=== PATIENT | female | born 1985 | race Caucasian/White ===

== ENCOUNTER 2018-03-11 18:15 | Emergency (ER) | payer SELFPAY ==
[~2018-03-11] VITALS: Ht 162.6 cm; Wt 83.5 kg
[~2018-03-11 18:15] MED LIST: ALBU0.0912 IH
--- NOTE | 2018-03-11 18:23 | NUR ---
Patient ambulated to bed 8 with family. RN evaluating patient at bedside.
[2018-03-11 18:30] VITALS: BP 111/61
--- NOTE | 2018-03-11 18:35 | NUR ---
32Y/F CAME TO ER WITH AND SON, C/O LOWER BACK PAIN/ABD. CRAMPING X1WK, DENIES PAINFUL URINATION, DENIES FALL. 18 WKS. GEST. , AB 1. SKIN IS PINK/WARM/DRY; AAOX4 WITH EVEN AND STEADY GAIT; PATIENT STATES PAIN OF 5/10 AT THIS TIME; VSS; PATIENT POSITIONED FOR COMFORT; HOB ELEVATED; BEDRAILS UP X1; BED DOWN. ER MD MADE AWARE OF PT STATUS.
--- NOTE | 2018-03-11 18:50 | NUR ---
PROVIDED PATIENT DR. GOMEZ PHONE NUMBER FOR APPT.
--- NOTE | 2018-03-11 19:05 | NUR ---
REPORT RECV'D FROM BALAJI DIALLO
[2018-03-11 20:32] VITALS: BP 135/78
--- NOTE | 2018-03-11 20:32 | NUR ---
Patient discharged with v/s stable. Written and verbal after care instructions given and explained. Patient verbalized understanding. Ambulatory with steady gait. All questions addressed prior to discharge. Advised to follow up with PMD.
== END 2018-03-11 20:32 | disposition home or self-care (01) ==
LOC: MED 18:15
DX: O26.892 Other specified pregnancy related conditions, second trimester (principal); M54.5 Low back pain; J45.909 Unspecified asthma, uncomplicated; I10 Essential (primary) hypertension; Z79.899 Other long term (current) drug therapy; Z3A.20 20 weeks gestation of pregnancy
CPT/HCPCS: 81002; 81025; 99283

== ENCOUNTER 2018-06-05 13:13 | Inpatient (IN) | payer MEDICAID ==
[~2018-06-05] VITALS: Ht 154.9 cm; Wt 91.6 kg
[2018-06-05] MEDS ORDERED: hydrALAZINE 20 MG/ML VIAL IM SCH ×2 (13:25→15:00)
[2018-06-05] MEDS ORDERED: hydrALAZINE 20 MG/ML VIAL ONE ×2 (13:30→15:04)
[2018-06-05] MEDS ORDERED: ALBUTEROL HFA MDI 90 MCG/ACTUATION 8 GM INH PRN (13:45)
[2018-06-05] MEDS: ALBUTEROL 0.083% 2.5 MG/3 ML NEBU INH PRN (14:16)
--- NOTE | 2018-06-05 14:16 | NUR ---
PATIENT REPORTED HIGH BLOOD PRESSURE AND NURSE WAS IN THE ROOM. TREATMENT WAS TOLERATED WELL AND PATIENT WAS INFORMED SHE COULD REQUEST PRN TX EVERY Q4 IF NEEDED.
[2018-06-05 14:44] VITALS: BP 166/114
[2018-06-05] MEDS ORDERED: BETAMETH ACET/BETAMETH NA PH 30 MG/5 ML VIAL IM ONE ×2 (16:10→16:22)
[2018-06-05] MEDS ORDERED: LABETALOL 200 MG TAB ONE (16:22)
[2018-06-05] MEDS: LABETALOL 200 MG TAB PO SCH (17:07)
[2018-06-05] MEDS: BETAMETH ACET/BETAMETH NA PH 30 MG/5 ML VIAL IM SCH (17:07)
[2018-06-05 17:44] LABS: APPEARANCE,URINE CLEAR (CLEAR); BILIRUBIN,URINE NEGATIVE (NEGATIVE); BLOOD, URINE NEGATIVE (NEGATIVE); COLOR,URINE YELLOW (YELLOW); LEUKOCYTE ESTERASE ,URINE NEGATIVE (NEGATIVE); NITRITE, URINE POSITIVE (NEGATIVE); UGLUCOSE NEGATIVE (NEGATIVE)
[2018-06-05 17:54] LABS: BARBITURATE, URINE NEG. ng/ml (NEG <=200); BENZODIAZEPINE, URINE NEG. ng/mL (NEG <=200); CANNABINOID, URINE NEG. ng/mL (NEG <=50); COCAINE, URINE NEG. ng/mL (NEG <=300); OPIATE, URINE NEG. ng/mL (NEG <=2000); PHENCYCLIDINE SCREEN,URINE NEG. ng/mL (NEG <=25); RBC,URINE NONE SEEN /HPF (0-5); WBC,URINE 0-5 (RARE) /HPF (0-5)
[2018-06-05] MEDS ORDERED: ACETAMINOPHEN 325 MG TAB ONE (20:51)
[2018-06-05] MEDS ORDERED: TERBUTALINE 1 MG/ML VIAL SUBQ ONE (21:50)
[2018-06-05] MEDS ORDERED: TERBUTALINE 1 MG/ML VIAL SUBQ SCH (21:50)
[2018-06-05] MEDS ORDERED: NIFEdipine 10 MG CAPLF ONE (22:18)
[2018-06-05] MEDS: NIFEdipine 10 MG CAPLF PO SCH ×3 (22:53→23:35)
[2018-06-06] MEDS: NIFEdipine 10 MG CAPLF PO SCH ×6 (03:30→23:30)
[2018-06-06] MEDS ORDERED: NIFEdipine 10 MG CAPLF ONE ×6 (03:40→23:18)
[2018-06-06] MEDS ORDERED: LABETALOL 200 MG TAB ONE ×2 (04:17→16:28)
[2018-06-06] MEDS ORDERED: BETAMETH ACET/BETAMETH NA PH 30 MG/5 ML VIAL IM ONE (04:17)
[2018-06-06] MEDS: BETAMETH ACET/BETAMETH NA PH 30 MG/5 ML VIAL IM SCH (04:22)
[2018-06-06] MEDS: LABETALOL 200 MG TAB PO SCH ×2 (04:22→16:27)
[2018-06-06 08:30] VITALS: BP 112/76
--- NOTE | 2018-06-06 08:38 | NUR ---
PATIENT HAS BEEN SCREENED AND CATEGORIZED LOW NUTRITION RISK. PATIENT WILL BE SEEN WITHIN 7 DAYS OF ADMISSION. 06/12/[address]
[2018-06-06] MEDS: ACETAMINOPHEN 325 MG TAB PO PRN (09:43)
[2018-06-06] MEDS ORDERED: ACETAMINOPHEN 325 MG TAB ONE (09:44)
[2018-06-06] MEDS: LACTATED RINGERS 1,000 ML IV SCH (10:39)
[2018-06-06 11:28] LABS: BASOPHILS % (AUTO) 0.2 % (0.0-2.0); HEMATOCRIT 38.6 % (36-48); HEMOGLOBIN 12.8 g/dL (12.0-16.0); LYMPHOCYTES # (AUTO) 1.5 K/uL (2.5-16.5); LYMPHOCYTES % (AUTO) 16.5 % (20.5-51.1); MEAN CORPUSCULAR HEMOGLOBIN 28 pg (27-31); MEAN CORPUSCULAR HGB CONC 33 g/dL (33-37); MEAN CORPUSCULAR VOLUME 82.6 fL (80-94); MONOCYTES # (AUTO) 0.1 K/uL (0.8-1.0); MONOCYTES % (AUTO) 1.4 % (1.7-9.3); NEUTROPHILS # (AUTO) 7.5 K/uL (1.8-7.7); NEUTROPHILS % (AUTO) 81.9 % (42.2-75.2); PLATELET COUNT (AUTO) 145 K/uL (140-450); RED BLOOD CELL COUNT(AUTO) 4.67 MIL/uL (4.20-5.40); RED CELL DISTRIBUTION WIDTH 14.9 % (11.6-13.7); WHITE BLOOD COUNT (AUTO) 9.2 K/uL (4.8-10.8)
[2018-06-06 11:59] LABS: ALBUMIN 1.7 g/dL (3.4-5.0); ANION GAP 14.3 (8-16); CREATININE 1.3 mg/dL (0.6-1.3); POTASSIUM 4.3 mmol/L (3.5-5.1); TOTAL BILIRUBIN 0.2 mg/dL (0.0-1.0)
[2018-06-07] VITALS (69 sets, daily range): BP systolic 90–140; BP diastolic 49–100
[2018-06-07] MEDS ORDERED: ALBUTEROL 0.083% 2.5 MG/3 ML NEBU INH ONE (03:44)
[2018-06-07] MEDS: ALBUTEROL 0.083% 2.5 MG/3 ML NEBU INH PRN ×3 (03:47→05:23)
--- NOTE | 2018-06-07 05:55 | NUR ---
received call from Dr Khan to transfer patient to ICU; talked to Dr Yung (resident) regarding transfer patient to ICU. Dr Yung (resident) stated that Dr Yung (resident) will take care of it
--- NOTE | 2018-06-07 06:10 | NUR ---
CPR INITIATED AT THIS TIME GIAN JOHNSONP;GIAN SETHP; GIAN LINGP; CHAN DYSON AT BEDSIDE
--- NOTE | 2018-06-07 06:40 | NUR ---
PATIENT INTUBATED AT THIS TIME BY DR REUBEN DAVEY ETT #7.5 SECURED AT 26cm WITH AN ANCHOR FASTCONFIRMED BY BILATERAL AUSCULATATION BY CHEST RISE AND CO2 CXR TO FOLLOW NEW ORDERS FROM : ELVER Pena VT 450 PEEP 5 FIO2 50% Addendum: 06/07/18 at 0744 by Nj Grace RT ACTUAL INTUBATION TIME AT 0615 Addendum: 06/07/18 at 0755 by Nj Grace RT CO2 DETECTOR
[2018-06-07] MEDS ORDERED: OXYTOCIN 10 UNITS/ML VIAL ONE (07:07)
[2018-06-07] MEDS ORDERED: METHYLERGONOVINE 0.2 MG/ML AMP ONE (07:08)
--- NOTE | 2018-06-07 07:10 | NUR ---
PATIENT'S WEIGHT IS 89.8KG
--- NOTE | 2018-06-07 07:23 | NUR ---
PATIENT WAS BROUGHT TO ICU ACCOMPANIED BY 2 L&D NURSES AT 0610, PATIENT WAS IN RESPIRATORY DISTRESS, BECAME UNRESPONSIVE, CALLED DACIA MASON. PATIENT WAS RESUSCITATED BACK AT 0638. (REFER TO DACIA MASON RECORD). PATIENT STARTED ON DOPAMINE DRIP, AMIODARONE DRIP. CALLED L&D RN WILLIE ALSTON FOR REPORT, WILL COME TO ICU TO GIVE REPORT.
--- NOTE | 2018-06-07 07:30 | NUR ---
PREPARED PATIENT FOR TRANSFER TO L&D, PLACED ON MONITOR. ALL SAFETY PRECAUTIONS ENFORCED, WILL CONTINUE TO MONITOR.
--- NOTE | 2018-06-07 07:35 | NUR ---
PATIENT TRANSFERRED TO LABOR AND DELIVERY OR TO STAT C=SECTION PATIENT REMOVED FROM VENTILATOR PLACED ON AMBU BAG TO ETT WITH SUPPLEMENTAL OXYGEN AT 15 LPM VIA E-TANK BAG DEPRESSION EVERY SIX SECONDS BAGGING GIVEN TO ANESTHESIOLOGIST VENTILATOR SETTINGS OF AC MODE RATE 18 VT 450 L PEEP 5 cmH2O fio2 50% GIVEN TO ETHEL QUINTANILLA/YOEL
--- NOTE | 2018-06-07 07:40 | NUR ---
PLACED ON VENTILATOR AT THIS TIME
--- NOTE | 2018-06-07 08:24 | NUR ---
informed to Dr BRAYAN Khan that Dr Yung (resident) does not take the patient, and told Dr BRAYAN Khan that ICU compilation clerk is on the patient's consult list already. Dr BRAYAN Khan stated "OK" Addendum: 06/09/18 at 0723 by Karthik Villafana RN Dr Yung will consulting with Dr Gallagher regarding the patient
[2018-06-07] MEDS ORDERED: NACL 0.9% 1,000 ML IV SCH ×2 (09:07→10:50)
--- NOTE | 2018-06-07 09:08 | NUR ---
RECEIVED REPORT FROM BILLPOSTING SUPERVISOR FOR CONTINUITY OF CARE IN ICU. DR. LEES AND RESIDENT PHYSICIANS AT BEDSIDE, RT AT BEDSIDE. PATIENT IS SEDATED ON PROPOFOL DRIP, FLACC 0. ST ON MONITOR. PATIENT HAS A S/P INCISION TO LOWER ABDOMEN FROM CESARIAN. PATIENT HAD CENTRAL LINE AND ARTERIAL LINE INSERTED IN OR. ARTERIAL LINE IS PATENT, GOOD BLOOD RETURN NOTED. PATIENT HAS ETT TO VENT. BREATHING EVEN AND UNLABORED. HOB IS SEMI FOWLERS IN LOW POSITION. ALL SAFETY PRECAUTIONS IN PLACE AND ENFORCED. CALL LIGHT WITHIN REACH. WILL CONTINUE TO MONITOR.
[2018-06-07] MEDS ORDERED: ONDANSETRON 4 MG/2 ML VIAL IM/IVP PRN (09:10)
[2018-06-07] MEDS ORDERED: ACETAMINOPHEN 325 MG TAB PO PRN (09:10)
[2018-06-07] MEDS ORDERED: DOCUSATE SODIUM 100 MG GELCAP PO PRN (09:10)
--- NOTE | 2018-06-07 09:15 | NUR ---
ACTUAL ETT PLACEMENT AT 21cm
--- NOTE | 2018-06-07 09:32 | NUR ---
ABG REVIEWED BY DR TIM LEES VENTILATOR CHANGES BY MD RATE 22 VT 550 PEEP 6 FIO2 60% ABG AFTER 1 HOUR
[2018-06-07] MEDS ORDERED: HYDROCORTISONE NA SUCC 100 MG/2 ML VIAL IV SCH (09:39)
[2018-06-07 10:09] LABS: HEMOGLOBIN 11.9 g/dL (12.0-16.0)
--- NOTE | 2018-06-07 10:13 | NUR ---
INSERTED ALEJO CATHETER, 16 [place], PATIENT TOLERATED WELL, URINE OUTPUT NOTED.
[2018-06-07 10:16] LABS: HEMATOCRIT 38.2 % (36-48); MEAN CORPUSCULAR HEMOGLOBIN 27 pg (27-31); MEAN CORPUSCULAR HGB CONC 31 g/dL (33-37); MEAN CORPUSCULAR VOLUME 85.2 fL (80-94); PLATELET COUNT (AUTO) 200 K/uL (140-450); RED BLOOD CELL COUNT(AUTO) 4.49 MIL/uL (4.20-5.40); RED CELL DISTRIBUTION WIDTH 15.4 % (11.6-13.7); WHITE BLOOD COUNT (AUTO) 20.5 K/uL (4.8-10.8)
[2018-06-07 10:27] LABS: LYMPHOCYTES % (MANUAL) 14 % (20-46); MONOCYTES % (MANUAL) 4 % (5-12)
[2018-06-07 10:51] LABS: PROTHROMBIN TIME 9.4 secs (10.8-13.4)
[2018-06-07 10:52] LABS: ALBUMIN 1.5 g/dL (3.4-5.0); ANION GAP 14.2 (8-16); CARBON DIOXIDE 22.8 mmol/L (21-32); CREATININE 1.4 mg/dL (0.6-1.3); TOTAL BILIRUBIN 0.2 mg/dL (0.0-1.0)
--- NOTE | 2018-06-07 10:55 | NUR ---
ABG SAMPLE REPORT REVIEWED BY DR MAE WOOD NEW ORDERS: INCREASE RATE TO 24; INCREASE FIO2 TO 100% Addendum: 06/07/18 at 1103 by Nj Grace RT DUNCAN/YOEL NOTIFIED OF VENTILATOR CHANGE
--- NOTE | 2018-06-07 11:00 | NUR ---
SEDATED BREATH SOUNDS CLEAR BILATERAL WITH GOOD CHEST RISE AND AERATION THROUGHOUT PULMONARY ZHENG VENTILATOR CHANGE: RATE 24 FIO2 100% NOTED AT 1055
[2018-06-07 11:02] LABS: CHOL/HDL RATIO 4.2 (1-4.5); FREE T4 (FREE THYROXINE) 1.14 ng/dL (0.76-1.46); MAGNESIUM 2.5 mg/dL (1.8-2.4); PHOSPHORUS 7.6 mg/dL (2.5-4.9); THYROID STIMULATING HORMONE 6.35 uIU/mL (0.34-3.74)
--- NOTE | 2018-06-07 11:15 | NUR ---
BEEF FARMER AT BEDSIDE FOR ECHO. PATIENT IS TACHYCARDIC AT THIS TIME, DR. WOOD IS AWARE. WILL CONTINUE TO MONITOR
[2018-06-07] MEDS ORDERED: INSULIN LISPRO SLIDING SCALE 100 UNITS/ML VIAL SUBQ PRN ×2 (11:50→15:00)
--- NOTE | 2018-06-07 12:10 | NUR ---
PROVIDED ORAL CARE, PATIENT TOLERATED WELL. WILL CONTINUE TO MONITOR
[2018-06-07] MEDS: LACTATED RINGERS 1,000 ML IV SCH (12:22)
--- NOTE | 2018-06-07 13:07 | NUR ---
ASSISTANT PROFESSOR OF DRAMA AT BEDSIDE TO EXAMINE S/P INCISION. STATED THAT BECAUSE PROCEDURE WAS DONE TODAY, SHE WILL NOT EXAMINE WOUND. DR. NINA TORO.
--- NOTE | 2018-06-07 13:32 | NUR ---
PATIENT HAS BEEN RE-SCREENED AND RE-CATEGORIZED HIGH NUTRITIONAL RISK DUE TO INTUBATION. PT WILL BE SEEN WITHIN 1-2 DAYS FROM NOW. 06/07/18-06/08/[address]
--- NOTE | 2018-06-07 13:51 | NUR ---
WOUND CARE EVALUATION PENDING AT THIS TIME, < 24 HOURS
[2018-06-07] MEDS: MORPHINE SULFATE 50 MG in NACL 0.9% 45 ML IV PRN (13:59)
[2018-06-07] MEDS: OXYTOCIN 20 UNITS in LACTATED RINGERS 1,000 ML IV SCH ×2 (14:07→23:30)
[2018-06-07] MEDS: ALBUTEROL SULFATE/IPRATROPIU 3 ML SOL IH SCH ×2 (14:27→19:09)
--- NOTE | 2018-06-07 14:35 | NUR ---
INSERTED NG TUBE, 16 JAPANESE, PATIENT TOLERATED WELL. RASS IS -3, NO SIGNS OF DISTRESS NOTED.
--- NOTE | 2018-06-07 14:44 | NUR ---
US TECH AT BEDSIDE, NO SIGNS OF DISTRESS AT THIS TIME. WILL CONTINUE TO MONITOR
--- NOTE | 2018-06-07 14:49 | NUR ---
XRAY TECHS AT BEDSIDE FOR CHEST XRAY, WILL CONTINUE TO MONITOR PATIENT
[2018-06-07] MEDS ORDERED: DEXTROSE 50% 50 ML SYR IVP PRN (15:00)
--- NOTE | 2018-06-07 15:40 | NUR ---
2 OB RNS AT BEDSIDE TO ASSESS PATIENT, PER OB RN PATIENT BLEEDING IS WITHIN NORMAL LIMITS, STATES THEY WILL CONTINUE TO ASSESS Q4H. NO SIGNS OF DISTRESS AT THIS TIME, RASS IS -3. ALL SAFETY PRECAUTIONS ENFORCED, WILL CONTINUE TO MONITOR.
[2018-06-07] MEDS ORDERED: CALCIUM GLUCONATE 10% 1,000 MG in NACL 0.9% 50 ML IV SCH ×2 (16:00→22:30)
[2018-06-07] MEDS: BLOOD GLUCOSE MONITORING 1 DEV DEV FS SCH ×2 (16:07→21:00)
--- NOTE | 2018-06-07 16:11 | NUR ---
PROVIDED ORAL CARE, PATIENT TOLERATES WELL. NO SIGNS OF DISTRESS NOTED, RASS AT -3. WILL CONTINUE TO MONITOR
[2018-06-07] MEDS: PROPOFOL 1000 MG/100 ML PREMIX 100 ML IV PRN ×2 (16:28→20:38)
[2018-06-07] MEDS ORDERED: BLOOD GLUCOSE MONITORING 1 DEV DEV FS SCH (16:30)
[2018-06-07] MEDS: ALBUTEROL SULFATE/IPRATROPIU 3 ML SOL IH PRN (17:26)
--- NOTE | 2018-06-07 17:26 | NUR ---
SEDATED DEEP TRACHEAL SUCTION FOR SMALL THIN YELLOW SECRETIONS AIRWAY PATENT
[2018-06-07] MEDS ORDERED: FUROSEMIDE 20 MG/2 ML VIAL IVP SCH (17:45)
[2018-06-07 18:03] LABS: HEMOGLOBIN 12.4 g/dL (12.0-16.0); MEAN CORPUSCULAR HEMOGLOBIN 27 pg (27-31); MEAN CORPUSCULAR HGB CONC 32 g/dL (33-37); MEAN CORPUSCULAR VOLUME 83.6 fL (80-94); PLATELET COUNT (AUTO) 213 K/uL (140-450); RED BLOOD CELL COUNT(AUTO) 4.67 MIL/uL (4.20-5.40); RED CELL DISTRIBUTION WIDTH 15.7 % (11.6-13.7)
[2018-06-07 18:37] LABS: LYMPHOCYTES % (MANUAL) 11 % (20-46); MONOCYTES % (MANUAL) 5 % (5-12)
--- NOTE | 2018-06-07 18:52 | NUR ---
PATIENT'S AT BEDSIDE WITH JAVA J2EE TECHNICAL LEAD. UPDATED ON PATIENT'S CONDITION. WILL CONTINUE TO MONITOR
--- NOTE | 2018-06-07 18:58 | NUR ---
AT BEDSIDE, UPDATED ON PATIENT'S CONDITION. WILL FOLLOW UP ON ANY ORDERS.
--- NOTE | 2018-06-07 19:05 | NUR ---
DR. 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
[2018-06-07 19:11] LABS: ANION GAP 14.3 (8-16); CARBON DIOXIDE 23.2 mmol/L (21-32); CREATININE 1.8 mg/dL (0.6-1.3)
--- NOTE | 2018-06-07 19:15 | NUR ---
ENDORSED CONTINUITY OF CARE TO UNDERGRADUATE INTERNSHIP RN, PATIENT PRESENTS NO SIGNS OF DISTRESS AT THIS TIME. RT AT BEDSIDE.
--- NOTE | 2018-06-07 19:16 | NUR ---
RECEIVED REPORT FROM DAY SHIFT RN. PT SEDATED 2+ SLUGGISH PUPILS, FLACCID MUSCLE TONE. PITOCIN, MORPHINE DRIP AND PROPOFOL DRIP CURRENTLY RUNNING THROUGH RIJ CENTRAL LINE. SINUS TACHYCARDIA 100S, ARTERIAL INVASIVE BLOOD PRESSURE 103/96, ART LINE ZEROED AND FLUSHED, +1 PULSES UPPER AND LOWER EXTREMITIES, +2 GENERALIZED EDEMA NOTED. 7.5 ETT TO VENT 22 CM @ OUTER LIP. LUNG SOUNDS DIMINISHED SLIGHT EXPIRATORY WHEEZES NOTED. SCANT WHITE SPUTUM NOTED. ABD SOFT, BULKY DRESSING CDI, IN PLACE S/P . NGT TO R NARES +PLACEMENT. ALEJO CATH IN PLACE, DARK IBAN URINE; LOW URINE OUTPUT NOTED. R UPPER ARM / ANTECUBITAL SPACE SKIN DISCOLORATION NOTED. SCDS IN PLACE. ALL ALARMS VERIFIED. SAFETY PRECAUTIONS IN PLACE, BED IN LOWEST POSITION, LOCKED. WILL CONTINUE TO OBSERVE.
[2018-06-07 19:23] LABS: POTASSIUM 7.5 mmol/L (3.5-5.1)
--- NOTE | 2018-06-07 19:25 | NUR ---
DR GOODRICH, FORENSIC ARTIST STILL IN THE UNIT.CRITICAL LAB RESULT POTASSIUM 7.5 REPORTED TO .NEW ORDER RECEIVED, REPEAT BMP AND TROPONIN LEVEL
--- NOTE | 2018-06-07 19:30 | NUR ---
DRY WEIGHT: 89.8 KG
--- NOTE | 2018-06-07 19:57 | NUR ---
NOTIFIED DR. MOYA OF DISCOLORATION TO R UPPER ARM/ANTECUBITAL SPACE. PER PREVIOUS SHIFT, VASOPRESSORS WERE INFUSING INTO PERIPHERAL IV LOCATED ON THE R UPPER ARM/ANTECUBITAL AREA; IV HAS SINCE BEEN DISCONTINUED. Addendum: 06/07/18 at 2207 by Zurdo Alicea RN ADVISED OF EXTRVASATION PROTOCOL. MD NEO RUBIO. WILL FOLLOW PER HOSPITAL POLICY.
--- NOTE | 2018-06-07 20:00 | NUR ---
VAP ORAL CARE DONE PER PROTOCOL. PT TURNED AND REPOSITIONED. WILL CONTINUE TO OBSERVE.
[2018-06-07] MEDS ORDERED: PHENTOLAMINE 5 MG/2 ML VIAL SUBQ SCH (20:30)
[2018-06-07] MEDS: HYDROCORTISONE NA SUCC 100 MG/2 ML VIAL IV SCH (20:35)
--- NOTE | 2018-06-07 20:35 | NUR ---
REGITINE GIVEN PER POLICY AND PROCEDURE. R ARM ELEVATED ABOVE HEART, COLD COMPRESS APPLIED, DISPOSABLE PAD PLACED UNDERNEATH AFFECTED LIMB. DISTAL PULSES INTACT, <3 SEC CAP REFILL, SKIN SURROUNDING AFFECTED AREA, PINK, AND DRY. NO OTHER S/S OF ACUTE DISTRESS NOTED.
[2018-06-07 20:49] LABS: ANION GAP 12.4 (8-16); CARBON DIOXIDE 24.1 mmol/L (21-32)
[2018-06-07 20:55] LABS: POTASSIUM 7.5 mmol/L (3.5-5.1)
--- NOTE | 2018-06-07 21:35 | NUR ---
[address] PHONE CALL MADE TO DR MOYA RE; TROPONIN [phone]; SAID TO CALL EDUCATION SUPERVISOR PHONE CALL MADE TO DR GOODRICH; MADE AWARE OF THE ABOVE,DR MONREAL WAS MADE AWARE THAT THIS IS LINE DRAW AND THAT ANOTHER LAB DRAW WAS DONE PERIPHERALLY;NO NEW ORDER
[2018-06-07 21:51] LABS: ANION GAP 13.3 (8-16); CARBON DIOXIDE 20.9 mmol/L (21-32)
[2018-06-07 21:55] LABS: POTASSIUM 8.2 mmol/L (3.5-5.1)
[2018-06-07] MEDS ORDERED: DEXTROSE 50% 50 ML SYR IVP SCH (22:30)
[2018-06-07] MEDS ORDERED: SODIUM POLYSTYRENE 15 GM/60 ML UDBTL PR SCH (22:30)
[2018-06-07] MEDS ORDERED: INSULIN LISPRO 100 UNITS/ML VIAL SUBQ SCH (22:30)
[2018-06-07] MEDS ORDERED: OXYTOCIN 20 UNITS/LR PREMIX 1,000 ML IV ONE (22:30)
[2018-06-07] MEDS ORDERED: CALCIUM GLUCONATE 10% 1000 MG/10 ML VIAL ONE (23:55)
[2018-06-08] VITALS (108 sets, daily range): BP systolic 115–189; BP diastolic 59–127
--- NOTE | 2018-06-08 00:03 | NUR ---
VAP ORAL CARE DONE, PT TURNED AND REPOSITIONE
[2018-06-08] MEDS: ALBUTEROL SULFATE/IPRATROPIU 3 ML SOL IH SCH ×4 (00:35→19:19)
--- NOTE | 2018-06-08 00:50 | NUR ---
SHENA RT AT BEDSIDE; VENT SETTING FIO2 DECREASED TO 50%.02SAT 97% AT THIS TIME.WILL CONTINUE TO CLOSELY MONITOR PT.
--- NOTE | 2018-06-08 01:30 | NUR ---
BLADDER SCAN DONE ORDERED BY DR MOYA; NOTED 282ML URINE.
[2018-06-08] MEDS ORDERED: FUROSEMIDE 40 MG/4 ML VIAL IVP SCH (02:00)
[2018-06-08] MEDS: PROPOFOL 1000 MG/100 ML PREMIX 100 ML IV PRN ×5 (02:13→21:44)
--- NOTE | 2018-06-08 02:40 | NUR ---
PHONE CALL MADE TO DR MOYA REGARDING PTS BP; 165/105.MADE AWARE MORPHINE DRIP WAS ALREADY INCREASED TO 2MG/HR AND LASIX 40MG IVP GIVEN.NO NEW ORDER AT THIS TIME
--- NOTE | 2018-06-08 04:00 | NUR ---
VAP ORAL CARE DONE, PT TURNED AND REPOSITIONED.
[2018-06-08] MEDS: LABETALOL 200 MG TAB PO SCH (04:27)
[2018-06-08] MEDS: HYDROCORTISONE NA SUCC 100 MG/2 ML VIAL IV SCH ×3 (04:28→20:40)
--- NOTE | 2018-06-08 05:19 | NUR ---
INCREASED FIO2 TO 50% TO DUE POST AM CARE AND DESATURATION TO 91% VITAL SIGNS STABLE, BS- BILATERAL CLEAR
[2018-06-08 06:00] LABS: HEMATOCRIT 37.9 % (36-48); HEMOGLOBIN 11.9 g/dL (12.0-16.0); MEAN CORPUSCULAR HEMOGLOBIN 26 pg (27-31); MEAN CORPUSCULAR HGB CONC 31 g/dL (33-37); MEAN CORPUSCULAR VOLUME 84.1 fL (80-94); PLATELET COUNT (AUTO) 198 K/uL (140-450); RED BLOOD CELL COUNT(AUTO) 4.51 MIL/uL (4.20-5.40); RED CELL DISTRIBUTION WIDTH 15.5 % (11.6-13.7); WHITE BLOOD COUNT (AUTO) 18.1 K/uL (4.8-10.8)
--- NOTE | 2018-06-08 06:00 | NUR ---
DR WOOD @ BEDSIDE. NOTIFIED MD ABOUT INCREASED BLOOD PRESSURE. MD AWARE AND WILL FOLLOW UP WITH ORDERS. MD ALSO MADE AWARE OF LOW URINE OUTPUT, 200 ML/SHIFT.
[2018-06-08 06:29] LABS: ANION GAP 13.2 (8-16); CARBON DIOXIDE 23.5 mmol/L (21-32); CREATININE 2.5 mg/dL (0.6-1.3)
[2018-06-08 06:48] LABS: LYMPHOCYTES % (MANUAL) 27 % (20-46); MONOCYTES % (MANUAL) 9 % (5-12)
[2018-06-08 06:51] LABS: POTASSIUM 6.7 mmol/L (3.5-5.1)
--- NOTE | 2018-06-08 07:14 | NUR ---
RECEIVED BEDSIDE REPORT FROM TIRE BLADDER MAKER RN FOR CONTINUITY OF CARE. PATIENT IS SEDATED WITH PROPOFOL AT 35MCG/KG/HR, RASS -3. PATIENT WEIGHT IS 89.8. SKIN IS NOT INTACT, PATIENT HAS AN EXTRAVASATION TO RIGHT UPPER ARM AND S/P POST CESARIAN INCISION TO LOWER ABDOMEN. PATIENT HAS CENTRAL LINE TO RIGHT IJ AND ARTERIAL LINE TO LEFT RADIAL ARTERY. PATIENT HAS ETT TO VENT, SETTINGS ARE AC/VC RATE 24, FIO2 50%, VT 550, PEEP 5. BREATHING IS EVEN AND UNLABORED, O2 SAT IS 99%. SR ON DETAILER, HYPERTENSIVE, RESIDENT PHYSICIANS AWARE, FLACC 0. PATIENT HAS NGT TO RIGHT NARES, NO RESIDUAL. ALEJO CATHETER IN PLACE TO YELLOW URINE, PER TIRE BLADDER MAKER RN 200 ML OUTPUT DURING SHIFT. PATIENT TURNED AND REPOSITIONED, TOLERATED WELL. HOB IS 30 DEGREES IN A LOW POSITION. ALL SAFETY PRECAUTIONS ASSESSED AND ENFORCED. CALL LIGHT WITHIN REACH. WILL CONTINUE TO MONITOR
--- NOTE | 2018-06-08 07:21 | NUR ---
DAY SHIFT RN GIVEN REPORT FOR CONTINUITY OF CARE. NO ACUTE DISTRESS NOTED.
[2018-06-08] MEDS: BLOOD GLUCOSE MONITORING 1 DEV DEV FS SCH ×4 (07:28→21:52)
--- NOTE | 2018-06-08 07:38 | NUR ---
RCV'D PT ON MECHANICAL VENTILATION WITH SETTINGS AC 24,550,+6,50%. PT IS INTUBATED WITH 7.5 ETT AT 21 CM AT LIP. ETT ON RIGHT SIDE OF MOUTH AND SECURED. VENT IS CONNECTED TO RED OUTLET. ALARMS AUDIBLE. AMBU BAG AT BEDSIDE. CLEAR BREATH SOUNDS. HHN TX GIVEN WITH NO ADVERSE REACTION. ETT CUFF PRESSURE IS 30 XMH2O. NO SOB OR DISTRESS NOTED. WILL CONTINUE TO MONITOR.
--- NOTE | 2018-06-08 07:39 | NUR ---
DR. SCHMITZ AT BEDSIDE, UPDATED ON PATIENT'S CONDITION. WILL FOLLOW UP ON ANY ORDERS.
--- NOTE | 2018-06-08 07:51 | NUR ---
DR. ESPARZA AND RESIDENT PHYSICIANS AT BEDSIDE, UPDATED ON PATIENT'S CONDITION. WILL FOLLOW UP ON ANY ORDERS.
[2018-06-08 08:01] LABS: MAGNESIUM 2.6 mg/dL (1.8-2.4)
--- NOTE | 2018-06-08 08:03 | NUR ---
OB RN AT BEDSIDE TO ASSESS PATIENT, UPDATED ON PATIENT'S CONDITION. WILL CONTINUE TO MONITOR
[2018-06-08] MEDS: PANTOPRAZOLE 40 MG INJ VIAL IVP SCH (08:23)
[2018-06-08] MEDS: OXYTOCIN 20 UNITS in LACTATED RINGERS 1,000 ML IV SCH (08:31)
--- NOTE | 2018-06-08 08:39 | NUR ---
ADMINISTERED SCHEDULED MEDS ORDERED, PATIENT TOLERATED WELL. PROVIDED ORAL CARE, MINIMAL SECRETIONS FROM SUCTIONING. PATIENT TOLERATED WELL. RASS OF -3 NOTED. NO SIGNS OF DISTRESS AT THIS TIME. WILL CONTINUE TO MONITOR.
--- NOTE | 2018-06-08 09:07 | NUR ---
DR. LESE AND DR. WOOD AT BEDSIDE. UPDATED AT PATIENT'S CONDITION. WILL FOLLOW UP ON ANY ORDERS.
--- NOTE | 2018-06-08 09:18 | NUR ---
DR. OCHOA AND DR. WOOD AT BEDSIDE, UPDATED ON PATIENT'S CONDITION. WILL FOLLOW UP ON ANY ORDERS.
--- NOTE | 2018-06-08 09:25 | NUR ---
DECREASED PT'S FIO2 TO 40% NO SOB OR DISTRESS NOTED. VENT CHECK DONE. DR LEES AT BEDSIDE. NO NEW ORDERS. WILL CONTINUE TO MONITOR.
[2018-06-08 09:27] LABS: T4 (THYROXINE) 12.1 ug/dL (4.5-12.0)
--- NOTE | 2018-06-08 09:32 | NUR ---
SPEAKING TO PATIENTS VIA PRESSER COTTON GINNING PHONE#[phone], TO OBTAIN CONSENT FOR INSERTION OF JAYASHREE CATHETER.
--- NOTE | 2018-06-08 09:42 | NUR ---
DR. MONREAL CALLED REGARDING PATIENT'S HIGH BLOOD PRESSURE, ORDERS RECEIVED, WILL CARRY OUT.
[2018-06-08] MEDS ORDERED: LIDOCAINE 2% 100 MG/5 ML SYR IVP ONE (09:45)
--- NOTE | 2018-06-08 09:50 | NUR ---
DR. OCHOA, DR. WOOD, TECH AT BEDSIDE FOR PLACEMENT OF JAYASHREE CATHETER. NO SIGNS OF DISTRESS NOTED AT THIS TIME, PATIENT IS AT RASS -3. WILL CONTINUE TO MONITOR
--- NOTE | 2018-06-08 10:05 | NUR ---
TIME OUT FOR JAYASHREE CATHETER PLACEMENT IN LEFT IJ PERFORMED.
--- NOTE | 2018-06-08 10:10 | NUR ---
ARNULFO BARFIELD, DIALYSIS NURSE MADE AWARE THAT PATIENT HAS AN ORDER FOR DIALYSIS. AND JAYASHREE CATHETER PLACED, AWAITING FOR X RAY CONFIRMATION.
--- NOTE | 2018-06-08 10:34 | NUR ---
JAYASHREE CATHETER PROCEDURE COMPLETE, PATIENT TOLERATED WELL. ALL SAFETY PRECAUTIONS IN PLACE. NO SIGNS OF DISTRESS NOTED. WILL CONTINUE TO MONITOR
[2018-06-08] MEDS ORDERED: LIDOCAINE 2% 1000 MG/50 ML VIAL INJ ONE (10:40)
[2018-06-08] MEDS ORDERED: CARVEDILOL 12.5 MG TAB NG SCH ×2 (10:42→21:00)
[2018-06-08] MEDS ORDERED: CARVEDILOL 12.5 MG TAB PO SCH ×3 (10:43→21:00)
--- NOTE | 2018-06-08 11:11 | NUR ---
PATIENT'S SISTER AT BEDSIDE, UPDATED ON PATIENT'S CONDITION BY
--- NOTE | 2018-06-08 11:12 | NUR ---
REMOVED ARTERIAL LINE IN LEFT UPPER EXTREMITY PER DR. YOANA GILBERT, APPLIED PRESSURE TO SITE AND COVERED WITH GAUZE AND TAPE.
--- NOTE | 2018-06-08 11:49 | NUR ---
BP 178/119 MMHG AT THIS TIME, DR WOOD MADE AWARE. WILL FOLLOW UP WITH ORDERS.
--- NOTE | 2018-06-08 12:00 | NUR ---
OB RN AT BEDSIDE ASSESSING PATIENT.
--- NOTE | 2018-06-08 12:18 | NUR ---
PROVIDED ORAL CARE, PATIENT TOLERATED WELL. TURNED AND REPOSITION PATIENT, NO SIGNS OF ACUTE DISTRESS. WILL CONTINUE TO MONITOR
--- NOTE | 2018-06-08 13:14 | NUR ---
DIALYSIS NURSE ARNULFO MADE AWARE THAT JAYASHREE CATH IS OK TO USE FOR DIALYSIS.
--- NOTE | 2018-06-08 13:38 | NUR ---
SPORTS DIRECTOR AT BEDSIDE TO START HEMODIALYSIS ON PATIENT, NO SIGNS OF DISTRESS NOTED. DR. NINA TORO.
[2018-06-08] MEDS: MORPHINE SULFATE 50 MG in NACL 0.9% 45 ML IV PRN (14:11)
--- NOTE | 2018-06-08 14:21 | NUR ---
06/08/18 RD INITIAL ASSESSMENT COMPLETED PLEASE REFER TO NUTRITION ASSESSMENT UNDER CARE ACTIVITY FOR ESTIMATED NUTRITIONAL NEEDS. 1. WHEN PATIENT IS MEDICALLY STABLE CONSIDER ADVANCING TO TUBE FEED VIA NG-TUBE WITH VITAL AF 1.2 AT GOAL RATE 35 ML/HR. 2. RECOMMEND FREE WATER FLUSH [address] TO FOLLOW-UP 2-3 DAYS, HIGH RISK BERENICE TEE, RD
--- NOTE | 2018-06-08 14:32 | NUR ---
RECEIVED CALL FROM DR. OCHOA, STATES TO STOP INFUSION OF OXYTOCIN IN LACTATED RINGERS DUE TO INCREASE IN POTASSIUM, WILL CARRY OUT.
[2018-06-08] MEDS ORDERED: FUROSEMIDE 100 MG/10 ML VIAL IVP SCH (14:40)
[2018-06-08] MEDS ORDERED: NACL 0.9% 1,000 ML IV SCH (14:40)
--- NOTE | 2018-06-08 15:23 | NUR ---
Automotive Internet Sales Consultant Note: Late entry for 06/07/18: and I met with patient's Mario Palomino. explained to Mario patient is currently in ICU, intubated, and in stable condition, I relayed this information to Mario in Vietnamese. Mario is not fluent in Libyan. Per Mario, he has contacted patient's family and waiting for them to arrive to hospital. Both Liliana and I gave Mario our condolences and explained to him to please not hesitate to let us know if you could provide any support to him and patient's family. I provided him with my contact information. Field Marketing Associate will continue to follow up as needed.
--- NOTE | 2018-06-08 16:01 | NUR ---
OB RN AT BEDSIDE TO EXAMINE PATIENT, NO SIGNS OF DISTRESS NOTED AT THIS TIME, HEMODIALYSIS STILL IN PROCESS, WILL CONTINUE TO MONITOR
--- NOTE | 2018-06-08 16:09 | NUR ---
PROVIDED ORAL CARE, PATIENT TOLERATED WELL. WILL CONTINUE TO MONITOR
[2018-06-08] MEDS ORDERED: hydrALAZINE 20 MG/ML VIAL IVP SCH (16:30)
--- NOTE | 2018-06-08 16:56 | NUR ---
PATIENT'S AT BEDSIDE, UPDATED ON PATIENT'S CONDITION. PATIENT IS SEDATED, RASS-3. WILL CONTINUE TO MONITOR
--- NOTE | 2018-06-08 17:08 | NUR ---
HEMODIALYSIS COMPLETE, PATIENT TOLERATED WELL, NO SIGNS OF ACUTE DISTRESS. 1500 OUTPUT PER PARKING METER COLLECTOR.
--- NOTE | 2018-06-08 17:42 | NUR ---
VENT CHECK DONE. PT HAS NO SECRETIONS FOR SAMPLE. NO SOB OR DISTRESS NOTED. WILL CONTINUE TO MONITOR.
[2018-06-08 18:56] LABS: ANION GAP 14.1 (8-16); CARBON DIOXIDE 22.9 mmol/L (21-32); CREATININE 2.2 mg/dL (0.6-1.3)
--- NOTE | 2018-06-08 19:30 | NUR ---
DRY WEIGHT: 89.8 KG
--- NOTE | 2018-06-08 19:30 | NUR ---
RECEIVED REPORT FROM DAY SHIFT NO ACUTE DISTRESS NOTD
--- NOTE | 2018-06-08 19:34 | NUR ---
Received pt stable on vent support at documented settings, suctioned scant amounts of thin clear secretions, hhn tx given, tolerated well, no resp distress or SOB noted at this time, 7.5 ETT secured and patent, alarms set and audible, ambu bag at bedside, vent plugged into red outlet, pulse ox on, will cont to monitor.
--- NOTE | 2018-06-08 19:41 | NUR ---
NOTIFIED DR MOYA OF ELEVATED BP 179/101, MD CORTEZ MD TO SEE PATIENT. WILL CONTINUE TO OBSERVE
[2018-06-08] MEDS ORDERED: hydrALAZINE 20 MG/ML VIAL IVP ONE (19:45)
--- NOTE | 2018-06-08 19:45 | NUR ---
PT AROUSABLE TO NAME, ABLE TO SQUEEZE HANDS AND MOVE TOES, GENERALIZED WEAKNESS NOTED. DENIES PAIN WHEN ASKED, EYES ARE ABLE TO TRACK +3 PERRL. REORIENTED PT TO UNIT AND INFORMED PT ABOUT IMPORTANCE OF IV LINES, AND TUBES IN PLACE. ADVISED NOT TO PULL ANYTHING OUT. NSR 90S NOTED, +2 GENERALIZED EDEMA NOTED PALPABLE PERIPHERAL PULSES. ETT TO VENT 7.5 MM ETT 22 CM @ LIP. VENT SETTINGS: AC 40% FIO2 R 24 TV 550 PEEP 6. ABD SOFT NON DISTENDED. ACTIVE BOWEL SOUNDS, NGT TO R NARES + PLACEMENT VITAL 1.2 RUNNING. NO RESIDUALS NOTED. ALEJO CATH IN PLACE CLEAR YELLOW URINE NOTED. S/P C SECTION, TRANSVERSE INCISION TO SUPRAPUBIC/LOWER ABDOMINAL AREA DRESSING CDI. CENTRAL LINE TO RIJ NOTED, PROPOFOL DRIP @ 30 MCG/KG/MIN, MORPHINE DRIP @ 2 MG/HR, AND IVF INFUSING @ 40 ML/HR. CVP MONITORING IN PLACE. LIJ JAYASHREE CATH IN PLACE. ALL SAFETY ALARMS/PRECAUTIONS IN PLACE AND VERIFIED. NO ACUTE DISTRESS NOTED
--- NOTE | 2018-06-08 20:00 | NUR ---
VAP ORAL CARE DONE, PT TURNED AND REPOSITIONED
--- NOTE | 2018-06-08 20:30 | NUR ---
DR MONREAL @ BEDSIDE
[2018-06-08] MEDS: CARVEDILOL 12.5 MG TAB PO SCH (20:41)
[2018-06-08] MEDS: FUROSEMIDE 100 MG/10 ML VIAL IVP SCH (20:41)
--- NOTE | 2018-06-08 21:00 | NUR ---
DR PIRES @ BEDSIDE
[2018-06-09] VITALS (48 sets, daily range): BP systolic 118–188; BP diastolic 54–106
--- NOTE | 2018-06-09 | NUR ---
VAP ORAL CARE DONE, PT TURNED AND REPOSITINED
[2018-06-09] MEDS: ALBUTEROL SULFATE/IPRATROPIU 3 ML SOL IH SCH ×4 (01:17→18:53)
[2018-06-09] MEDS: PROPOFOL 1000 MG/100 ML PREMIX 100 ML IV PRN ×2 (02:17→04:44)
--- NOTE | 2018-06-09 03:45 | NUR ---
AM CARE DONE, PT TURNED AND REPOSITIONED, VAPP ORAL CARE DONE, PT TOLERATED WELL.
[2018-06-09] MEDS: HYDROCORTISONE NA SUCC 100 MG/2 ML VIAL IV SCH (04:45)
--- NOTE | 2018-06-09 06:00 | NUR ---
DR WOOD @ BEDSIDE, UPDATED. NO NEW ORDERS GIVEN.
--- NOTE | 2018-06-09 07:08 | NUR ---
RECEIVED BEDSIDE REPORT FROM PRECISION MACHINING INSTRUCTOR RN FOR CONTINUITY OF CARE. PATIENT IS SEDATED, OPENS EYES TO NAME, RASS -3 WITH PROPOFOL AT 40 MCG/KG/HR, PATIENT'S DRY WEIGHT IS 89.8KG. PATIENT SKIN IS WARM AND DRY, NOT INTACT, SHE HAS S/P INCISION TO LOWER ABDOMEN POST CESARIAN AND EXTRAVASATION TO UPPER RIGHT ARM. PATIENT HAS CENTRAL LINE TO RIGHT IJ, ASYMPTOMATIC AND PATENT, SHE HAS A JAYASHREE CATHETER TO LEFT IJ, ASYMPTOMATIC AND PATENT. PATIENT HAS ETT TO VENT, SETTINGS ARE AC/VC, RATE 24, FIO2 28, VT 550, PEEP 6. BREATHING EVEN AND UNLABORED, SPO2 100%. PATIENT IS SINUS RHYTHM ON BRANCH MAKER, BP IS 149/78, CVP 3, FLACC 0. PATIENT HAS NGT TO RIGHT NARES TO TUBE FEEDING AT 35ML/HR, NO RESIDUAL NOTED. ALEJO CATHETER IN PLACE TO CLEAR LIGHT YELLOW URINE. SOFT WRIST RESTRAINTS ASSESSED AND IN PLACE, HOB IS ELEVATED TO 30 DEGREES, ALL SAFETY PRECAUTIONS ENFORCED. NO SIGNS OF DISTRESS NOTED, CALL LIGHT WITHIN REACH. WILL CONTINUE TO MONITOR
[2018-06-09 07:22] LABS: BASOPHILS % (AUTO) 0.1 % (0.0-2.0); HEMATOCRIT 28.7 % (36-48); HEMOGLOBIN 9.7 g/dL (12.0-16.0); LYMPHOCYTES # (AUTO) 2.5 K/uL (2.5-16.5); LYMPHOCYTES % (AUTO) 19.9 % (20.5-51.1); MEAN CORPUSCULAR HEMOGLOBIN 28 pg (27-31); MEAN CORPUSCULAR HGB CONC 34 g/dL (33-37); MEAN CORPUSCULAR VOLUME 81.4 fL (80-94); MONOCYTES # (AUTO) 0.5 K/uL (0.8-1.0); MONOCYTES % (AUTO) 4.2 % (1.7-9.3); NEUTROPHILS # (AUTO) 9.7 K/uL (1.8-7.7); NEUTROPHILS % (AUTO) 75.8 % (42.2-75.2); PLATELET COUNT (AUTO) 191 K/uL (140-450); RED BLOOD CELL COUNT(AUTO) 3.52 MIL/uL (4.20-5.40); RED CELL DISTRIBUTION WIDTH 14.6 % (11.6-13.7); WHITE BLOOD COUNT (AUTO) 12.7 K/uL (4.8-10.8)
[2018-06-09 07:28] LABS: PHOSPHORUS 6.9 mg/dL (2.5-4.9)
[2018-06-09] MEDS: BLOOD GLUCOSE MONITORING 1 DEV DEV FS SCH ×4 (07:43→20:39)
--- NOTE | 2018-06-09 07:58 | NUR ---
DR. ESPARZA AND RESIDENT PHYSICIANS AT BEDSIDE, UPDATED ON PATIENT'S CONDITION. WILL FOLLOW UP ON ANY ORDERS.
[2018-06-09 08:11] LABS: ANION GAP 14.7 (8-16); CARBON DIOXIDE 23.1 mmol/L (21-32); CREATININE 2.5 mg/dL (0.6-1.3); POTASSIUM 3.8 mmol/L (3.5-5.1)
--- NOTE | 2018-06-09 08:20 | NUR ---
DR. LEES AND DR. WOOD AT BEDSIDE FOR EXTUBATION, PROPOFOL AND MORPHINE ON HOLD, TUBE FEEDING ON HOLD. NO SIGNS OF DISTRESS NOTED. WILL CONTINUE TO MONITOR
--- NOTE | 2018-06-09 08:20 | NUR ---
DR. LEES AT BEDSIDE, UPDATED ON PATIENT'S CONDITION. DR. LEES PLACED PATIENT ON CPAP TRIAL, STATES THAT PATIENT IS READY OF EXTUBATION.
--- NOTE | 2018-06-09 08:20 | NUR ---
DR TIM LEES PLACED ON CPAP/PS FOR WEANING TRIAL BY NEW ORDER: EXTUBATE PATIENT
--- NOTE | 2018-06-09 08:23 | NUR ---
DR LEES AT BEDSIDE REVIEWED ABG ORDER PENDING NEW ORDER: DISCONTINUE ABG ORDER
--- NOTE | 2018-06-09 08:30 | NUR ---
LOC AWAKE AND ALERT FOLLOWS FAMILY PSYCHOLOGIST COMMANDS PRE EXTUBATION: OROPHARYNGEAL SUCTIONING WITH NO SECRETION RETURN NO PULMONARY SUCTION REQUIRED BREATH SOUNDS CLEAR BILATERAL WITH GOOD CHEST RISE AND AERATION THROUGHOUT PULMONARY ZHENG UNSECURED ANCHOR FAST STRAP DEFLATED CUFF BALLOON FLAT REQUESTED PATIENT TO TAKE DEEP BREATHS ON INSPIRATION REMOVED ENDOTRACHEAL TUBE PLACED PATIENT ON SUPPLEMENTAL OXYGEN AT [address] MAE WOOD AT BEDSIDE REVIEWED POST EXTUBATION IF PATIENT PRESENTS WITH UPPER AIRWAY "HOARSNESS" FAMILY PSYCHOLOGIST TO PLACE ON A COOL AEROSOL TO MASK AND/OR GIVE EPINEPHRINE INHALATION THERAPY INCENTIVE THERAPY FOR LUNG EXPANSION
--- NOTE | 2018-06-09 08:35 | NUR ---
DR. LEES, DR. WOOD, AND RT AT BEDSIDE. EXTUBATED PATIENT, PATIENT TOLERATED WELL.
--- NOTE | 2018-06-09 08:36 | NUR ---
PATIENT AAOX3, DR. COOPER AT BEDSIDE TO SPEAK WITH PATIENT REGARDING PATIENT'S CONDITION. RESTRAINTS REMOVED PATIENT IS MORE ALERT.
[2018-06-09] MEDS: FUROSEMIDE 100 MG/10 ML VIAL IVP SCH (08:48)
[2018-06-09] MEDS: PANTOPRAZOLE 40 MG INJ VIAL IVP SCH (08:48)
[2018-06-09] MEDS: CARVEDILOL 12.5 MG TAB PO SCH ×2 (08:49→20:45)
--- NOTE | 2018-06-09 09:07 | NUR ---
RETURNING OFFICER, SOPHIA AT BEDSIDE TO ASSESS PATIENT, PLACE DRESSING ON EXTRAVASATION TO UPPER RIGHT ARM AND DRESSING TO LOWER ABDOMEN, PATIENT TOLERATED WELL.
[2018-06-09] MEDS ORDERED: LORazepam 2 MG/ML VIAL IM/IVP PRN (09:15)
--- NOTE | 2018-06-09 09:28 | NUR ---
CLARIFIED ORDER FOR HYDRALAZINE DUE TO PATIENT ON COREG AND LASIX LOWERING PATIENT'S BP, DR. WOOD STATES OKAY TO GIVE HYDRALAZINE. WILL CONTINUE TO MONITOR
[2018-06-09] MEDS: hydrALAZINE 10 MG TAB PO SCH ×3 (09:31→16:53)
--- NOTE | 2018-06-09 09:45 | NUR ---
ASSESS PATIENT'S SWALLOWING WITH DR. WOOD AT BEDSIDE, GAVE PATIENT SOME ICE CHIPS, PATIENT TOLERATED WELL. DR. WOOD STATED OKAY TO D/C NG TUBE. FLUSH NG TUBE WITH 50 ML OF WATER, REMOVED NG TUBE FROM RIGHT NARES, PATIENT TOLERATED WELL. NO SIGNS OF DISTRESS NOTED. WILL CONTINUE TO MONITOR
--- NOTE | 2018-06-09 10:05 | NUR ---
WOUND CARE EVALUATION NOTE: REASON FOR EVALUATION: SURGICAL WOUND AND RIGHT UPPER ARM WOUND SKIN ASSESSMENT DONE WITH THIS 32 Y/O FEMALE TRANSFER FROM OB TO ICU S/P CARDIAC ARREST AND ACUTE RENAL FAILURE. PAST MEDICAL HX METH. USER, ALL ABOVE INFORMATION OBTAINED FROM CHART REVIEW. PT.LABS ARE WBC 12.7, H/H 9.7/28.7, [id number] AND ALBUMIN 1.5. PT IS ALERT, SKIN IS WARM WITH GOOD HYDRATION, BLE NO HAIR GROWTH, NO EDEMA. PLAN OF CARE DISCUSS WITH PRIMARY RN, PT. AND NINA MCCORMACK. INTEGUMENTARY: -CENTRAL LINE RIGHT IJ DRESSING CDI -JAYASHREE CATH TO LEFT IJ DRESSING CDI -LOWER ABDOMEN S/P SURGICAL WOUNDS, WOUND SITE CLEAN AND DRY WITH MULTIPLE FLOWER IN PLACE, NO S/S OF WOUND DEHISCENCE -EXTRAVASATION TO RIGHT UPPER ARM, ERYTHEMA [id number] WITH ACTIVE OPEN WOUND PARTIAL THICKNESS SKIN LOSS 4X3X0.1CM, MEGHA-WOUND SLIGHTLY EDEMA AND WARM TO TOUCH RECOMMENDATION: -CLEANSE LOWER ABDOMEN S/P SURGICAL WOUNDS WITH NS. PAT DRY, APPLY DRY DRESSING QD AND PRN ID SOILING. -CLEANSE RIGHT UPPER ARM WOUND WITH NS. PAT DRY , APPLY HYDROGEL AND ADAPTIC DRESSING ON ACTIVE OPEN WOUND AREA AND APPLY ADAPTIC DRESSING TO ERYTHEMA AREA AND COVER WITH KERLIX ROLLS CHANGE PRN IF SOILING -INSTRUCT PT. TO HOLD ON ABDOMEN SURGICAL WOUND SITE WHEN COUGH OR CHANGE POSITION. ASSIST PT. IN TURNING AND REPOSITION IF NEEDED. ALL RECOMMENDATION DISCUSS WITH PRIMARY RN
[2018-06-09] MEDS: MORPHINE SULFATE 2 MG/ML SYR IVP PRN (10:32)
--- NOTE | 2018-06-09 10:36 | NUR ---
ADMINISTERED MORPHINE 1MG PRN FOR 8/10 PAIN, PATIENT TOLERATED WELL.
--- NOTE | 2018-06-09 11:08 | NUR ---
AWAKE AND ALERT PATIENT PRESENTING AND C/O DRY UPPER AIRWAY PLACED ON SUPPLEMENTAL OXYGEN AT 28%/6 LPM VIA COOL AEROSOL TO MASK
--- NOTE | 2018-06-09 11:34 | NUR ---
CALL BACK FROM DR MAE WOOD REVIEWED ABG SAMPLE REPORT STATES "OK SOUNDS GOOD" NO NEW ORDERS
--- NOTE | 2018-06-09 11:35 | NUR ---
PATIENT'S AT BEDSIDE, WILL CONTINUE TO MONITOR.
--- NOTE | 2018-06-09 11:55 | NUR ---
SENIOR ECOLOGIST ETHEL AN FLIGHT DECK OFFICER ALL WOUND CONDITIONS AND TREATMENT PLANS EXPLAINED TO PT. AND , ALL QUESTIONS ANSWERED. SPOKE TO RD FOR LOW ALBUMIN, RD WILL RE-ASSESS. Addendum: 06/09/18 at 1200 by Lucila Hendrickson RN (Grace) PT. AND VERBALIZES UNDERSTANDING CONVERSATION AND TREATMENT PLANS AT THIS TIME.
--- NOTE | 2018-06-09 12:01 | NUR ---
MUD ANALYSIS WELL LOGGING CAPTAIN note Order received for bedside swallow evaluation, chart reviewed. Pt was intubated 06/07/2018 and extubated 06/09/2018 at 08:30am. Per MUD ANALYSIS WELL LOGGING CAPTAIN protocol, MUD ANALYSIS WELL LOGGING CAPTAIN will defer bedside swallow evaluation completion until minimum of 24 hours s/p extubation has elapsed to decreased pt's risk for silent aspiration (which is greatest during first 24 hours s/p extubation). MUD ANALYSIS WELL LOGGING CAPTAIN to f/u after at least 24 hours s/p extubation have elapsed, as appropriate.
--- NOTE | 2018-06-09 13:38 | NUR ---
PATIENT AT BEDSIDE, NO SIGNS OF DISTRESS NOTED. WILL CONTINUE TO MONITOR
--- NOTE | 2018-06-09 13:41 | NUR ---
PATIENT SISTERS AT BEDSIDE, PATIENT IS UPSET OVER LOSS OF THE BABY. WILL CONTINUE TO MONITOR
--- NOTE | 2018-06-09 14:08 | NUR ---
ADMINISTERED ATIVAN PRN FOR AGITATION DUE TO PATIENT PRESENTING RESTLESSNESS. PATIENT TOLERATES WELL. WILL CONTINUE TO MONITOR.
[2018-06-09] MEDS ORDERED: SKINTEGRITY HYDROGEL TP PRN (14:30)
--- NOTE | 2018-06-09 14:53 | NUR ---
DR. WOOD AT BEDSIDE TO CHECK ON PATIENT, UPDATED ON PATIENT'S CONDITION, WILL FOLLOW UP ON ANY ORDERS.
--- NOTE | 2018-06-09 16:00 | NUR ---
VENTILATOR REMAINS AT BEDSIDE STAND BY
--- NOTE | 2018-06-09 16:18 | NUR ---
DR. SCHMITZ AT BEDSIDE TO CHECK ON PATIENT, UPDATED ON PATIENT'S CONDITION. NO NEW ORDERS RECEIVED.
--- NOTE | 2018-06-09 16:47 | NUR ---
DR. WOOD AT BEDSIDE, STATES NO NEED TO CONTINUE WITH CVP MONITORING. WILL FOLLOW UP ON ORDER.
--- NOTE | 2018-06-09 17:07 | NUR ---
Cigarette Seller Note: Per patient's Mario, he would like to speak with certified social workers in health care from hospital, he didn't stated reason, URBANO Deng will meet with Mario this afternoon. Addendum: 06/11/18 at 1033 by Letitia CASEY correction for above note: he didn't state reason, URBANO Chaa will meet with Mario this afternoon.
--- NOTE | 2018-06-09 17:50 | NUR ---
Kettle Worker Notes: I met with Patient and at bed side to discuss concerns, Per patient's Candelario, he wanted to speak with case management social worker from hospital, to request for resources or information regarding Mortuary services at low cost. Due to their resent loss of a child and been limited with money. I provided a mortuary list, and discuss with Patient's about inquiring for low cost services or payment plans. He agreed and stated that he will contact them to see if there was any resources available for them. He thanked me for the information.
--- NOTE | 2018-06-09 18:48 | NUR ---
VISIT BY SISTER VALENTÍN CALIXTO AND HER [phone]. AT BED SIDE.
--- NOTE | 2018-06-09 19:07 | NUR ---
DR. MONREAL AT BEDSIDE, UPDATED ON PATIENT'S CONDITION, WILL FOLLOW UP ON ANY ORDERS.
--- NOTE | 2018-06-09 19:08 | NUR ---
ENDORSED CONTINUITY OF CARE TO HOT DIE PICKER RN, NO SIGNS OF DISTRESS NOTED.
--- NOTE | 2018-06-09 19:25 | NUR ---
RECEIVED REPORT FROM MORNING RN, DUNCAN, FOR CONTINUITY OF CARE. VS STABLE AT THIS TIME. AFEBRILE. PT DROWSY BUT ABLE TO MAKE NEEDS KNOWN AND TO FOLLOW COMMAND. PERRL. DENIES PAIN AT THIS TIME. LUNG SOUNDS CLEAR. PT ON OXYGEN AT 6L/MIN VIA MASK. NO SOB NOTED. NO SIGNS OF RESPIRATORY DISTRESS. BREATHING EVEN AND UNLABORED. SYMMETRICAL CHEST EXPANSION. RT AT BEDSIDE. PT TO BE SWITCHED TO NASAL CANNULA POST BREATHING TREATMENT. S1+S2 HEARD. SR ON MONITOR. PULSES PALPABLE IN ALL EXTREMITIES. PT NOTED WITH EDEMA THAT IS NON-PITTING +2 IN BUE/BLE. ABDOMEN ROUND, SOFT AND NONDISTENDED. BS ACTIVE IN ALL QUADRANTS. PT HAS LOWER ABDOMEN INCISION, S/P . INCISION IS COVERED WITH DRESSING WHICH IS INTACT, DRY, AND CURRENTLY NO DRAINAGE NOTED. ALEJO CATHETER IN PLACE THAT IS DRAINING CLEAR AND YELLOW URINE. CURRENTLY HAS 50ML OUTPUT. PT HAS RIGHT IJ CENTRAL LINE AND LEFT IJ JAYASHREE CATHETER. PT HAS A LARGE DISCOLORATION ON RIGHT UPPER ARM. SITE COVERED WITH KERLIX. PT HAS EDEMA NON-PITTING ON BUE. HOB KEPT AT 30 DEGREES. BED AT LOW POSSIBLE POSITION. CALL LIGHT WITHIN REACH. WILL CONTINUE TO MONITOR PT.
--- NOTE | 2018-06-09 19:45 | NUR ---
PT SWITCHED FROM OXYGEN MASK TO NASAL CANNULA. OXYGEN CURRENTLY AT 2L/MIN AND OXYGEN SATURATION AT 95%
--- NOTE | 2018-06-09 20:50 | NUR ---
PT TURNED, REPOSITIONED, AND WAS ABLE TO TOLERATE. PT ABLE TO MAKE NEEDS KNOWN. PT WAS ABLE TO SWALLOW HER MEDICATIONS WITHOUT DIFFICULTY. KEPT HOB AT 30 DEGREES.
[2018-06-09] MEDS ORDERED: NACL 0.45% 1,000 ML IV SCH (21:35)
--- NOTE | 2018-06-09 22:15 | NUR ---
ALEJO CATHETER STILL DRAINING CLEAR AND YELLOW URINE. ORAL CARE PROVIDED TO PT. TURNED AND REPOSITIONED. CHECKED BUTTOCKS AND SACRAL AREA, NO REDNESS NOTED.
[2018-06-10] VITALS (9 sets, daily range): BP systolic 136–158; BP diastolic 83–105
--- NOTE | 2018-06-10 00:10 | NUR ---
VS STABLE. AFEBRILE. SINUS RHYTHM TO SINUS TACHYCARDIA ON MONITOR. PT DENIES PAIN AT THIS TIME. HOB AT 30 DEGREES. ALL SAFETY PRECAUTIONS ARE IN PLACE.
[2018-06-10] MEDS: ALBUTEROL SULFATE/IPRATROPIU 3 ML SOL IH SCH ×4 (00:59→18:59)
[2018-06-10] MEDS ORDERED: DEXT 5% / NACL 0.9% 500 ML IV SCH (01:00)
[2018-06-10] MEDS: MORPHINE SULFATE 2 MG/ML SYR IVP PRN ×4 (02:23→18:45)
--- NOTE | 2018-06-10 02:47 | NUR ---
OXYGEN SATURATION WITHIN NORMAL LIMIT AT THIS TIME. NO SIGNS OF SHORTNESS OF BREATH NOTED. BREATHING EVEN AND UNLABORED. VS STABLE. CLEAR AND YELLOW URINE DRAINING FROM ALEJO CATHETER IN PLACE.
--- NOTE | 2018-06-10 04:05 | NUR ---
MORNING CARE PROVIDED TO PT. ALEJO CARE PROVIDED. PT ABLE TO ASSIST WITH TURNING AND REPOSITIONING. PT HAS GOOD URINE OUTPUT AT THIS TIME. PT TOLERATED BEING TURNED AND REPOSITIONED WELL. DRESSING DRY, INTACT AND NO DRAINAGE NOTED.
[2018-06-10 05:37] LABS: BASOPHILS % (AUTO) 0.1 % (0.0-2.0); EOSINOPHILS % (AUTO) 0.2 % (0.0-4.0); HEMATOCRIT 30.2 % (36-48); HEMOGLOBIN 9.8 g/dL (12.0-16.0); LYMPHOCYTES % (AUTO) 19.4 % (20.5-51.1); MEAN CORPUSCULAR HEMOGLOBIN 27 pg (27-31); MEAN CORPUSCULAR HGB CONC 32 g/dL (33-37); MEAN CORPUSCULAR VOLUME 82.4 fL (80-94); MONOCYTES # (AUTO) 0.7 K/uL (0.8-1.0); MONOCYTES % (AUTO) 4.2 % (1.7-9.3); NEUTROPHILS # (AUTO) 11.8 K/uL (1.8-7.7); NEUTROPHILS % (AUTO) 76.1 % (42.2-75.2); PLATELET COUNT (AUTO) 204 K/uL (140-450); RED BLOOD CELL COUNT(AUTO) 3.67 MIL/uL (4.20-5.40); RED CELL DISTRIBUTION WIDTH 14.7 % (11.6-13.7); WHITE BLOOD COUNT (AUTO) 15.5 K/uL (4.8-10.8)
[2018-06-10 06:11] LABS: CARBON DIOXIDE 30.2 mmol/L (21-32); CREATININE 1.7 mg/dL (0.6-1.3); POTASSIUM 3.2 mmol/L (3.5-5.1)
[2018-06-10 06:17] LABS: PHOSPHORUS 3.9 mg/dL (2.5-4.9)
[2018-06-10] MEDS: BLOOD GLUCOSE MONITORING 1 DEV DEV FS SCH ×4 (06:43→21:21)
--- NOTE | 2018-06-10 07:12 | NUR ---
REPORT GIVEN TO MORNING RN, DIANN, FOR CONTINUITY OF CARE. VS STABLE AT THIS TIME.
--- NOTE | 2018-06-10 07:20 | NUR ---
RECEIVED REPORT FROM MENTAL HEALTH ORDERLY RN. PT RESTING IN BED. SR ON MONITOR. FLUCTUATING BP HIGH TO NORMAL. AWAKE BUT CONFUSED. KNOW NAME AND STATES SHE IS IN HOSPITAL. SKIN DRY AND WARM TO TOUCH. LUNGS CLEAR ON AUSCULTATION. RIJ TRIPLE LUMEN CATHETER NOTED. HAVE GOOD BLOOD RETURN. D5%NS RUNNING AT 50 ML/HR. LEFT IJ JAYASHREE CATH INTACT. EXTRAVASATION NOTED ON MADY, COVERED WITH DRESSING. ABDOMEN SOFT, LARGE AND TENDER. S/P C/S SURGICAL DRESSING NOTED ON LOWER ABDOMEN. DRESSING DRY AND INTACT. NO ACTIVE BLEEDING NOTED AT THE SITE. ACTIVE BOWEL SOUND. PITTING EDEMA NOTED ON BOTH UPPER AND LOWER EXTREMITIES. KEPT HOB ELEVATED. BED IN LOW POSITION LOCKED. WILL CONTINUE TO MONITOR.
--- NOTE | 2018-06-10 07:35 | NUR ---
SEEN BY DR. ESPARZA AND RESIDENT GROUP. MADE AWARE ABOUT LOW POTASSIUM 3.2.
[2018-06-10] MEDS: PANTOPRAZOLE 40 MG INJ VIAL IVP SCH (08:18)
[2018-06-10] MEDS: hydrALAZINE 25 MG TAB PO SCH ×3 (08:19→16:54)
[2018-06-10] MEDS: CARVEDILOL 12.5 MG TAB PO SCH ×2 (08:20→21:21)
[2018-06-10] MEDS ORDERED: POTASSIUM CHLORIDE 10 MEQ TABER PO SCH (09:00)
[2018-06-10] MEDS ORDERED: amLODIPine 5 MG TAB PO SCH (09:00)
--- NOTE | 2018-06-10 10:12 | NUR ---
MARKET RESEARCH ANALYST NOTE [id number] Bedside swallow evaluation completed following clearance by YOEL Aguirre. Please refer to MARKET RESEARCH ANALYST document for full report. Recommend: -Mech soft texture + thin liquids for all PO intake. Whole, oral meds ok. -1:1 feeder assistance for safety -Upright at 90 during and 20 min after intake -Small bites/sips, slow rate, alternate bites/sips, straw ok. -MARKET RESEARCH ANALYST to follow 2x/wk x1wk for diet toleration and advancement as appropriate. Education provided to pt and RN re: results and recommendations. G8996: CJ G8997: CI Swallow NOMS 4
[2018-06-10] MEDS ORDERED: SPIRONOLACTONE 25 MG TAB PO SCH (12:39)
[2018-06-10] MEDS: PIPER/TAZO 2.25GM/D5W PREMIX 50 ML IV SCH ×2 (13:04→21:20)
--- NOTE | 2018-06-10 14:24 | NUR ---
SLEEPING IN BED AT THIS TIME. NO ACUTE RESPIRATORY DISTRESS NOTED. VS WNL. WILL CONTINUE TO MONITOR.
[2018-06-10] MEDS: NACL 0.45% 1,000 ML IV SCH (16:23)
[2018-06-10] MEDS: SPIRONOLACTONE 25 MG TAB PO SCH (16:55)
--- NOTE | 2018-06-10 17:03 | NUR ---
RESTING IN BED. AT BEDSIDE. VS WNL.
--- NOTE | 2018-06-10 17:51 | NUR ---
FREDRICK AND RECEIVED CALL FROM DR. MCCARTY. UPDATED RECENT LABS. AJIR LONG. WILL FOLLOW UP ORDER. Addendum: 06/10/18 at 1752 by Carla Ruffin RN WRONG PT CHARTING.
--- NOTE | 2018-06-10 18:20 | NUR ---
RECEIVED PT FROM ICU, ALERT, AWAKE AND ORIENTED X2, CONFUSED. NO SOB NOTED, ON 02 AT 2LPM VIA NASAL CANNULA. NO C/O PAIN AT THIS TIME. WITH TRIPLE LUMEN CENTRAL ON RT IJ, PATENT , SITE CLEAN, DRY AND INTACT. WITH LT IJ JAYASHREE CATH, SITE CLEAN, DRY AND INTACT. BUE SWELLING NOTED, ELEVATED WITH PILLOWS. CHEST, DIMINISHED AIR ENTRY TO THE BASES. ABDOMEN LARGE BUT SOFT, LOWER ABDOMINAL INCISION S/P DRESSING DRY AND INTACT. WITH ALEJO CATHETER DRAINING MODERATE AMOUNTS OF CLEAR YELLOW URINE. INSTRUCTED PT TO CALL FOR ASSISTANCE, CALL LIGHT WITHIN REACH, PT VERBALIZED PARTIAL UNDERSTANDING.
--- NOTE | 2018-06-10 18:20 | NUR ---
PT TRANSFERRED TO TELE UNIT 107B VIA BED ON STABLE CONDITION. REPORT GIVEN TO TELE NURSE INGRED.
--- NOTE | 2018-06-10 19:22 | NUR ---
ENDORSED PATIENT TO PILE HEADER NURSE. PATIENT IS RESTING IN BED FAMILY AT BEDSIDE. IN STABLE CONDITION.
--- NOTE | 2018-06-10 19:30 | NUR ---
RECEIVED FROM AM RN IN BED AWAKE AND WITH FAMILY MEMBERS VISITING. NONE VERBAL AT THIS TIME. PT. JUST LOOKS AT ME. DX. OF CARDIAC ARREST. PT. IS AN ICU TRANSFER JUST THIS AFTERNOON. WITH ABDOMINAL DRESSING INTACT AND NO BLEEDING FROM S/P 06/07/18 CS. PT. WITH LIJ JAYASHREE CATHETER USED FOR HD AND RIJ CL FOR IV'S. ALEJO CATHETER IN PLACE AND DRAINING WITH YELLOW URINE. CALL LIGHT WITH IN REACH AND RE-ORIENTED FAMILY MEMBERS AND PT ABOUT IT. BED ALARM ON. ON WITH 02 SAT OF WITH 99 %.
--- NOTE | 2018-06-10 22:00 | NUR ---
PT. ABLE TO SWALLOW P.O. MEDICATIONS ADMINISTERED WELL. ABLE TO SWALLOW WATER WITH OUT ANY S/S OF ASPIRATION. TOLERATED WELL.
--- NOTE | 2018-06-10 22:45 | NUR ---
PT. HAD LIQUIDY BM 4 X ALREADY SINCE START OF SHIFT. CLEANED BY TIMBER RIDER AND NURSE. PT. ABLE TO TURN SELF WITH ASSIST. ON IVF ABT. ABLE TO USE CALL LIGHT FOR HELP. DENIES PAIN AT THIS TIME. TELEMETRY MONITORING.
--- NOTE | 2018-06-10 23:00 | NUR ---
PT. ABLE TO VERBALIZE SIMPLE NEEDS WELL IN [place]. NEEDS WILL BE MET . TELEMETRY MONITORING.
--- NOTE | 2018-06-10 23:42 | NUR ---
RESIDENT MD MORAN MADE AWARE OF PT. HAVING LIQUIDY STOOL. NO ORDERS GIVEN. "I WILL LET THE MORNING DOCTOR KNOW ABOUT IT". PT. SLEEPING AT THIS TIME. CALL LIGHT WITH IN REACH.
[2018-06-11] VITALS (7 sets, daily range): BP systolic 117–149; BP diastolic 81–105
[2018-06-11] MEDS: ALBUTEROL SULFATE/IPRATROPIU 3 ML SOL IH SCH ×4 (00:29→19:25)
--- NOTE | 2018-06-11 02:00 | NUR ---
SLEEPING AT THIS TIME. WAKES UP EASILY WHEN TOUCHED . TELEMETRY MONITORING. CALL LIGHT WITH IN REACH.
--- NOTE | 2018-06-11 04:43 | NUR ---
PT. SLEEPING. WAKES UP EASILY WHEN TOUCHED OR CALLED BY NAME. NO COMPLAINTS DONE. TELEMETRY MONITORING.
[2018-06-11] MEDS: PIPER/TAZO 2.25GM/D5W PREMIX 50 ML IV SCH ×3 (05:06→20:28)
[2018-06-11] MEDS: NACL 0.45% 1,000 ML IV SCH ×2 (05:06→08:49)
[2018-06-11] MEDS: BLOOD GLUCOSE MONITORING 1 DEV DEV FS SCH ×4 (05:10→20:28)
--- NOTE | 2018-06-11 06:10 | NUR ---
AWAKE AT THIS TIME. PROVIDED WITH APPLE JUICE REQUESTED. ABLE TO VERBALIZE IN ROMANSH . A/O X 4. ROM X 4.
[2018-06-11 07:06] LABS: BASOPHILS % (AUTO) 0.1 % (0.0-2.0); EOSINOPHILS # (AUTO) 0.1 K/uL (0-0.4); EOSINOPHILS % (AUTO) 0.7 % (0.0-4.0); HEMATOCRIT 34.6 % (36-48); HEMOGLOBIN 11.1 g/dL (12.0-16.0); LYMPHOCYTES # (AUTO) 2.7 K/uL (2.5-16.5); LYMPHOCYTES % (AUTO) 18.5 % (20.5-51.1); MEAN CORPUSCULAR HEMOGLOBIN 27 pg (27-31); MEAN CORPUSCULAR HGB CONC 32 g/dL (33-37); MEAN CORPUSCULAR VOLUME 83.1 fL (80-94); MONOCYTES # (AUTO) 0.4 K/uL (0.8-1.0); NEUTROPHILS # (AUTO) 11.5 K/uL (1.8-7.7); NEUTROPHILS % (AUTO) 77.7 % (42.2-75.2); PLATELET COUNT (AUTO) 240 K/uL (140-450); RED BLOOD CELL COUNT(AUTO) 4.17 MIL/uL (4.20-5.40); RED CELL DISTRIBUTION WIDTH 15.2 % (11.6-13.7); WHITE BLOOD COUNT (AUTO) 14.8 K/uL (4.8-10.8)
[2018-06-11 07:24] LABS: ANION GAP 9.6 (8-16); CARBON DIOXIDE 28.8 mmol/L (21-32); CREATININE 1.2 mg/dL (0.6-1.3); POTASSIUM 3.4 mmol/L (3.5-5.1)
--- NOTE | 2018-06-11 07:27 | NUR ---
ENDORSED TO THE NEXT RN FOR CONTINUITY OF CARE. ABLE TO VERBALIZE NEEDS IN [place] WELL. NEEDS MET. TELEMETRY MONITORING.
--- NOTE | 2018-06-11 07:28 | NUR ---
RECEIVED BEDSIDE REPORT. PATIENT IS AWAKE AND MORE ALERT THAN YESTERDAY. PATIENT STATES SHE REMEMBERS ME FROM YESTERDAY. SHE IS IN STABLE CONDITION. WILL CONTINUE TO MONITOR CALL LIGHT WITHIN REACH.
[2018-06-11 07:29] LABS: MAGNESIUM 1.7 mg/dL (1.8-2.4); PHOSPHORUS 2.7 mg/dL (2.5-4.9)
--- NOTE | 2018-06-11 08:15 | NUR ---
AWAKE AND ALERT RESPONSIVE NO EVIDENCE OF SOB NOTED PATIENT WITH BREAKFAST TRAY AT THIS TIME DATA INTEGRATION DEVELOPER TO ATTEMPT HHN THERAPY AT A LATER TIME
[2018-06-11] MEDS ORDERED: MAG SULF 2000 MG/WATER PREMIX 50 ML IV ONE (08:20)
[2018-06-11] MEDS: MAGNESIUM SULFATE 1GM in DEXTROSE 5% 100 ML PREMIX IV SCH ×2 (08:48→11:11)
[2018-06-11] MEDS: SPIRONOLACTONE 25 MG TAB PO SCH ×2 (08:50→17:37)
[2018-06-11] MEDS: METOPROLOL 50 MG TAB PO SCH (08:50)
[2018-06-11] MEDS: LACTOBACILLUS RHAMNOSUS GG 1 EACH CAP PO SCH (08:51)
[2018-06-11] MEDS: amLODIPine 5 MG TAB PO SCH (08:51)
[2018-06-11] MEDS: PANTOPRAZOLE 40 MG INJ VIAL IVP SCH (08:53)
[2018-06-11] MEDS: hydrALAZINE 25 MG TAB PO SCH ×3 (09:00→17:37)
[2018-06-11] MEDS ORDERED: amLODIPine 5 MG TAB PO SCH ×2 (09:00)
[2018-06-11] MEDS: HYDROcodone/APAP 7.5/325 MG 1 TAB PO PRN (09:43)
--- NOTE | 2018-06-11 09:45 | NUR ---
PATIENT ASKED TO SPEAK WITH HER . WERE ABLE TO GET A HOLD OF HIM HE WILL BE COMING IN LATER ON TODAY.
--- NOTE | 2018-06-11 11:34 | NUR ---
06/11/18 RD FOLLOW UP COMPLETED PLEASE REFER TO NUTRITION PROGRESS NOTE UNDER CARE ACTIVITY FOR ESTIMATED NUTRITION NEEDS. RD RECOMMENDATIONS: 1. RECOMMEND CONTINUE CURRENT DIET 2G NA MECHANICAL SOFT; SUFFICIENT TO MEET PT DAILY ESTIMATED NEEDS. 2. WHEN PT FEELS BETTER AND MORE ENERGETIC/READY, EDUCATE PATIENT ON DIET. 3. RD TO FOLLOW-UP 2-3 DAYS, HIGH RISK FREDERICK BUTTS MBA, RD
[2018-06-11] MEDS ORDERED: POTASSIUM CHLORIDE 10 MEQ TABER PO SCH (12:00)
[2018-06-11] MEDS ORDERED: MAGNESIUM OXIDE 400 MG TAB PO SCH (12:00)
[2018-06-11] MEDS: MORPHINE SULFATE 2 MG/ML SYR IVP PRN ×2 (12:09→17:33)
--- NOTE | 2018-06-11 13:00 | NUR ---
PATIENT IS AWAKE ATE ABOUT 80% OF HER LUNCH. PATIENT ASKED ME TO CALL HER . SHE STATES HE WILL COME IN AGAIN LATER WITH HER SON. NO DISTRESS NOTED. IN STABLE CONDITION. CALL LIGHT IS WITHIN REACH.
--- NOTE | 2018-06-11 16:00 | NUR ---
VITAL SIGNS ARE WITHIN NORMAL LIMITS. REPOSITION PATIENT TOLERATED WELL. NO SOB. CALL LIGHT IS WITHIN REACH.
--- NOTE | 2018-06-11 18:00 | NUR ---
PT HAD TOTAL OF 3X SMALL LIQUID BOWEL MOVEMENTS THROUGHOUT THE SHIFT, YELLOW-BROWN STOOLS NOTED. PT IS INCONTINENT AT TIMES, UNABLE TO SAVE STOOL SPECIMEN FOR C-DIFF COLLECTION. PT HAS BEEN ON IV ABX FOR MORE THAN 24 HRS.
--- NOTE | 2018-06-11 19:23 | NUR ---
ENDORSED TO CHIEF COUNSEL NURSE. PATIENT IS IN GOOD MOOD TALKING TO VISITORS. HAS NO SOB. IV SITE IS CLEAN AND PATENT. BED ON LOWEST POSITION, CALL LIGHT WITHIN REACH.
--- NOTE | 2018-06-11 19:24 | NUR ---
RECEIVED FROM AM RN IN BED SITTING UP. VISITORS AROUND HER. TALKING WITH HER VISITORS. GOOD AFFECT. NO SOB. DENIES ANY DOLOR AT THIS TIME. CARE PLANS FOR THE NIGHT DISCUSSED WITH HER. TELEMETRY MONITORING. CALL LIGHT WITH IN REACH AT ALL TIMES. ABLE TO VERBALIZE NEEDS WELL. NO COMPLAINTS DONE AT THIS TIME. ENCOURAGED TO CALL FOR ANY HELP SHE MAY NEED OR IF SHE HAS ANY DOLOR. DRESSING TO CS SITE INTACT AND NO BLEEDING NOTED.
--- NOTE | 2018-06-11 21:12 | NUR ---
BLOOD SUGAR CHECK 106. NO RISS COVERAGE. VERBALIZES WELL AND SHOWED ME SHE CAN MOVE RIGHT HAND NOW. A/O X 4. DENIES PAIN AT THIS TIME.
[2018-06-11] MEDS: ALBUTEROL SULFATE/IPRATROPIU 3 ML SOL IH PRN (23:12)
[2018-06-12] MEDS: ALBUTEROL SULFATE/IPRATROPIU 3 ML SOL IH SCH ×4 (01:00→19:44)
[2018-06-12] MEDS: NACL 0.45% 1,000 ML IV SCH (01:42)
--- NOTE | 2018-06-12 03:20 | NUR ---
BEEN SLEEPING WELL. WAKES UP EASILY WHEN TOUCHED. TELEMETRY MONITORING. VERBALIZES NEEDS WELL. USES CALL LIGHT.
[2018-06-12 04:33] VITALS: BP 152/104
[2018-06-12] MEDS: PIPER/TAZO 2.25GM/D5W PREMIX 50 ML IV SCH ×3 (05:33→20:06)
[2018-06-12] MEDS: BLOOD GLUCOSE MONITORING 1 DEV DEV FS SCH ×4 (05:33→21:20)
--- NOTE | 2018-06-12 06:18 | NUR ---
AM PERSONAL HYGIENE CARE RENDERED BY FELT CEMENTER. ABLE TO VERBALIZE NEEDS WELL. NO PAIN COMPLAINTS. PT. EDUCATED RE : METHAMPHETAMINE ADVERSE REACTIONS TO BODY. PT. EAGER TO LEARN MORE ABOUT IT. STATED THAT SHE IS USING IT A LOT SINCE 6 MONTHS AGO. PT. OPEN TO LEARNING. NEEDS ANTICIPATED AND MET.
--- NOTE | 2018-06-12 07:22 | NUR ---
PATIENT SLEPT THROUGH TREATMENT. VERBALLY DENIED FEELING SOB. O2 98% ON RA, PULSE OF 96, RATE OF 16. BREATH SOUNDS WERE CLEAR. TREATMENT TOLERATED WELL.
[2018-06-12 07:31] LABS: BASOPHILS % (AUTO) 0.1 % (0.0-2.0); EOSINOPHILS # (AUTO) 0.1 K/uL (0-0.4); EOSINOPHILS % (AUTO) 0.8 % (0.0-4.0); HEMATOCRIT 32.5 % (36-48); HEMOGLOBIN 10.5 g/dL (12.0-16.0); LYMPHOCYTES # (AUTO) 2.7 K/uL (2.5-16.5); LYMPHOCYTES % (AUTO) 17.3 % (20.5-51.1); MEAN CORPUSCULAR HEMOGLOBIN 26 pg (27-31); MEAN CORPUSCULAR HGB CONC 32 g/dL (33-37); MEAN CORPUSCULAR VOLUME 81.8 fL (80-94); MONOCYTES # (AUTO) 0.7 K/uL (0.8-1.0); MONOCYTES % (AUTO) 4.5 % (1.7-9.3); NEUTROPHILS # (AUTO) 11.8 K/uL (1.8-7.7); NEUTROPHILS % (AUTO) 77.3 % (42.2-75.2); PLATELET COUNT (AUTO) 259 K/uL (140-450); RED BLOOD CELL COUNT(AUTO) 3.97 MIL/uL (4.20-5.40); RED CELL DISTRIBUTION WIDTH 14.9 % (11.6-13.7); WHITE BLOOD COUNT (AUTO) 15.3 K/uL (4.8-10.8)
[2018-06-12 08:00] VITALS: BP 130/89
--- NOTE | 2018-06-12 08:30 | NUR ---
PATIENT SEEN BY PT
[2018-06-12 08:45] LABS: ANION GAP 10.1 (8-16); CARBON DIOXIDE 25.6 mmol/L (21-32); CREATININE 0.9 mg/dL (0.6-1.3); MAGNESIUM 1.6 mg/dL (1.8-2.4); PHOSPHORUS 2.2 mg/dL (2.5-4.9); POTASSIUM 3.7 mmol/L (3.5-5.1)
[2018-06-12] MEDS: hydrALAZINE 25 MG TAB PO SCH ×3 (09:00→17:32)
[2018-06-12] MEDS: METOPROLOL 50 MG TAB PO SCH (09:39)
[2018-06-12] MEDS: SPIRONOLACTONE 25 MG TAB PO SCH ×2 (09:39→17:31)
[2018-06-12] MEDS: amLODIPine 5 MG TAB PO SCH (09:39)
[2018-06-12] MEDS: LACTOBACILLUS RHAMNOSUS GG 1 EACH CAP PO SCH (09:39)
[2018-06-12] MEDS: HYDROcodone/APAP 7.5/325 MG 1 TAB PO PRN (09:40)
[2018-06-12] MEDS: PANTOPRAZOLE 40 MG INJ VIAL IVP SCH (09:40)
--- NOTE | 2018-06-12 11:19 | NUR ---
RIGHT ARM WOUND DRESSING CHANGED. PATIENT TOLERATED WEL
[2018-06-12 12:00] VITALS: BP 136/98
--- NOTE | 2018-06-12 12:39 | NUR ---
BUILDINGS AND GROUNDS DIRECTOR note (dysphagia therapy and discharge summary report) 12:00-12:30. Pt was provided with dysphagia therapy following clearance by RN (Josh). Pt sitting up in chair beside her bed with RN present for IV care. Pt c/o her right arm feeling numb and swollen. RN explained that it is due to pt's IV line had gotten infiltrated in that arm. Pt assisted with opening her lunch tray containers and then pt self-fed herself lunch without difficulty with chewing/swallowing. Pt's spouse intermittently at bedside. One of pt's children (3 year old son) present at bedside as well. Pt was provided with supportive listening, encouragement and education regarding purpose of BUILDINGS AND GROUNDS DIRECTOR's visit with good result. Pt wanted BUILDINGS AND GROUNDS DIRECTOR to look at the photos of her baby that she lost during this hospitalization. BUILDINGS AND GROUNDS DIRECTOR offered pt condolences and sympathy. Pt prefers to remain on mechanical soft textures at this time per pt report when asked by BUILDINGS AND GROUNDS DIRECTOR. Discharge Summary Report Pt was provided with bedside swallow evaluation on 06/10/2018 with recommendations for mechanical soft textures and thin liquids. Pt was provided with dysphagia therapy on 06/12/2018 with same recommendations. Recommend: 1) continue mechanical soft textures with thin liquids until pt ready to advance to regular textures again 2) continue general aspiration precautions 3) discharge pt from BUILDINGS AND GROUNDS DIRECTOR intervention at this time. Physician may reorder if further concerns arise, as appropriate. G-codes: [id number] CAYLA NOMS level 6 BUILDINGS AND GROUNDS DIRECTOR d/w RN Omi) prior to and following dysphagia therapy session.
--- NOTE | 2018-06-12 13:06 | NUR ---
ALEJO CATHETER DISCONTINUED. 850ML OF CLEAR YELLOW URINE OUTPUT NOTED
--- NOTE | 2018-06-12 14:56 | NUR ---
PATIENT BEING EVALUATED BY DR WILLIAMSON
--- NOTE | 2018-06-12 15:05 | NUR ---
Rice Cleaning Machine Tender Note: Director of Case Management and Rice Cleaning Machine Tender Dept Lori and I met with patient and patient's Mario at bedside to discuss fetus' mortuary and/or arrangements. Patient and Mario speak Haitian, not fluent in Italian. I asked patient and Mario if they had made arrangements using the resources provided to them by URBANO Deng and myself. They stated they had not and reported they did not have funds for burial or cremation. I emphasized the importance of them contacting mortuary/ companies and explaining to the staff their financial situation and asking staff which options were able to them. I also explained to them our hospital does not have a morgue, therefore, it is crucial to make burial or cremation arrangements as soon as possible in order for fetus to receive proper handling care. I explained to them they had the option of releasing fetus to hospital and allowing hospital to follow fetus disposition policy. They stated they did not want hospital to be responsible for fetus disposition. Mario stated he was going to contact [facility] today. I offered to contact [facility] on his behalf ([facility] has offered to assist low income individuals and families with payment plans and/or fundraise funds in the past). He agreed. I called and spoke with Nati from [employer], she stated she was going to contact Mario today (Nati speaks Haitian).
[2018-06-12 16:00] VITALS: BP 142/95
--- NOTE | 2018-06-12 16:40 | NUR ---
CENTRAL LINE DRESSING CHANGED. PATIENT AWAKE IN BED. PATIENT'S PRESENT AT BEDSIDE
--- NOTE | 2018-06-12 19:00 | NUR ---
PATIENT IN THE ROOM WITH THE BABY. PRESENT IN THE ROOM
--- NOTE | 2018-06-12 19:30 | NUR ---
PATIENT REPORT GIVEN AT BEDSIDE. PATIENT ENDORSED IN STABLE CONDITION
[2018-06-12] MEDS ORDERED: MAGNESIUM OXIDE 400 MG TAB PO ONE (20:05)
[2018-06-12] MEDS ORDERED: SODIUM PHOS / POTASSIUM PHOS 1 PKT PDR PO ONE (20:05)
--- NOTE | 2018-06-12 20:05 | NUR ---
SEEN PT AWAKE, ALERT AND ORIENTED, SPEAKS FRENCH ONLY. SPOUSE AND SON AT BEDSIDE. INITIAL ASSESSMENT DONE. PT RT ARM ELEVATED OVER PILLOW AND PT SAYING IT NEEDS TO BE CHANGED. INFORMED PT THAT IT WILL BE CHANGE TONIGHT. VITAL SIGNS CHECKED. PT COMPLAINING OF PAIN ON THE RT ARM. WILL MEDICATE FOR PAIN ORDERED. SAFETY REINFORCED. CALL LIGHT W/IN REACH.
[2018-06-12 20:08] VITALS: BP 148/77
--- NOTE | 2018-06-12 20:40 | NUR ---
PT GIVEN MEDICATIONS ORDERED W/ TEACHINGS. RT ARM DRESSING CHANGED.
[2018-06-12] MEDS: MORPHINE SULFATE 2 MG/ML SYR IVP PRN (20:42)
--- NOTE | 2018-06-12 21:20 | NUR ---
BLOOD SUGAR CHECKED:111. NO COVERAGE NEEDED. PT DENIES ANY OTHER NEEDS.
--- NOTE | 2018-06-12 22:15 | NUR ---
CALLED [employer] AND SPOKE TO AYAAN TO ASK WHEN THEIR STAFF COMING TO TOOL DESIGN ENGINEER THE DEMISE. SHE SAID "WE HAVEN'T RECEIVED ANY DOCUMENTS YET." AYAAN GAVE A NUMBER TO FAX THE [phone] AND ADDRESS TO [place]. WILL FAX FACE SHEET.
--- NOTE | 2018-06-12 22:30 | NUR ---
SEEN PT SITTING ON THE CHAIR. ENCOURAGED PT TO USE THE INCENTIVE SPIROMETER 10X IN AN HR WHILE AWAKE AND TO MOVE AND AMBULATE MORE. PT VERBALIZED UNDERSTANDING. SAFETY ENSURED.
[2018-06-13] MEDS: ALBUTEROL SULFATE/IPRATROPIU 3 ML SOL IH SCH ×4 (01:27→19:40)
--- NOTE | 2018-06-13 01:30 | NUR ---
SEEN PT HAVING HER BREATHING TREATMENT. PT COMPLAINING OF PAIN WELL. PT MEDICATED W/ MORPHINE ORDERED. TEACHINGS PROVIDED. PT WANTS HER LOWER ABDOMINAL DRESSING CHANGE. FLOWER INTACT W/ MINIMAL DRAINAGE. DRESSING CHANGED. PT KEPT COMFORTABLE. WILL CONTINUE TO MONITOR.
[2018-06-13] MEDS: MORPHINE SULFATE 2 MG/ML SYR IVP PRN ×3 (01:31→20:56)
[2018-06-13] MEDS: NACL 0.45% 1,000 ML IV SCH (01:41)
[2018-06-13 02:25] VITALS: BP 145/85
[2018-06-13] MEDS: HYDROcodone/APAP 7.5/325 MG 1 TAB PO PRN (02:27)
--- NOTE | 2018-06-13 04:50 | NUR ---
SEEN PT ASLEEP BUT EASILY AROUSABLE. VITAL SIGNS CHECKED. PT DENIES ANY PAIN AT THIS TIME. SAFETY REINFORCED.
[2018-06-13 04:55] VITALS: BP 136/86
[2018-06-13] MEDS: PIPER/TAZO 2.25GM/D5W PREMIX 50 ML IV SCH ×3 (05:11→20:55)
--- NOTE | 2018-06-13 05:30 | NUR ---
BLOOD SUGAR CHECKED:87. NO COVERAGE NEEDED. PT DENIES ANY OTHER NEEDS.
[2018-06-13] MEDS: BLOOD GLUCOSE MONITORING 1 DEV DEV FS SCH ×4 (06:43→21:27)
[2018-06-13 07:01] LABS: BASOPHILS % (AUTO) 0.3 % (0.0-2.0); EOSINOPHILS # (AUTO) 0.2 K/uL (0-0.4); EOSINOPHILS % (AUTO) 1.4 % (0.0-4.0); HEMATOCRIT 28.2 % (36-48); HEMOGLOBIN 9.3 g/dL (12.0-16.0); LYMPHOCYTES # (AUTO) 2.4 K/uL (2.5-16.5); LYMPHOCYTES % (AUTO) 17.8 % (20.5-51.1); MEAN CORPUSCULAR HEMOGLOBIN 27 pg (27-31); MEAN CORPUSCULAR HGB CONC 33 g/dL (33-37); MEAN CORPUSCULAR VOLUME 81.8 fL (80-94); MONOCYTES # (AUTO) 0.7 K/uL (0.8-1.0); MONOCYTES % (AUTO) 5.1 % (1.7-9.3); NEUTROPHILS # (AUTO) 10.3 K/uL (1.8-7.7); NEUTROPHILS % (AUTO) 75.4 % (42.2-75.2); PLATELET COUNT (AUTO) 249 K/uL (140-450); RED BLOOD CELL COUNT(AUTO) 3.45 MIL/uL (4.20-5.40); RED CELL DISTRIBUTION WIDTH 15.1 % (11.6-13.7); WHITE BLOOD COUNT (AUTO) 13.6 K/uL (4.8-10.8)
[2018-06-13 07:18] LABS: ANION GAP 8.9 (8-16); CARBON DIOXIDE 26.6 mmol/L (21-32); CREATININE 0.7 mg/dL (0.6-1.3); POTASSIUM 3.5 mmol/L (3.5-5.1)
--- NOTE | 2018-06-13 07:21 | NUR ---
WILL ENDORSE CARE TO DAYSHIFT NURSE.
--- NOTE | 2018-06-13 07:22 | NUR ---
RECEIVED REPORT FROM THE HALL WORKER NURSE AT BEDSIDE FOR CONTINUITY OF CARE. PT IS ASLEEP. FAMILY AT BEDSIDE, ALSO SLEEPING. WILL BE BACK TO ASSESS PT.
[2018-06-13 07:27] LABS: MAGNESIUM 1.3 mg/dL (1.8-2.4); PHOSPHORUS 2.8 mg/dL (2.5-4.9)
--- NOTE | 2018-06-13 07:40 | NUR ---
Panel Coverer Note: Late entry for 06/12/18: I met with patient at bedside. Patient speaks Lao, not fluent in Thai. I provided her with education on local counseling/mental health services and provided her with a list of local counseling mental health services, list includes agencies that offer services in Lao.
--- NOTE | 2018-06-13 07:50 | NUR ---
V/S WITHIN NORMAL RANGE. PT IS AOX4, SPEAKS VERY LITTLE GEORGIAN. PT HAS AN R IJ INFUSING 1/2 NS AT 30ML. AND L IJ/KEENA BLANC. SHE HAS A DRESSING ON THE R UPPER ARM. PER CHEMIST HELPER NURSE, IT IS FROM THE DOPAMINE INFILTRATION, DURING HER CODE. PT ALSO HAS DRESSING ON THE LOWER ABD FROM C-SEC. IT IS DRY AND INTACT. WILL TAKE PICTURE OF IT LATER BEFORE D/C. PLAN FOR TODAY: D/C HOME. WILL CONTINUE TO MONITOR PT.
[2018-06-13] MEDS: PANTOPRAZOLE 40 MG INJ VIAL IVP SCH (09:11)
[2018-06-13] MEDS: LACTOBACILLUS RHAMNOSUS GG 1 EACH CAP PO SCH (09:18)
[2018-06-13] MEDS: hydrALAZINE 25 MG TAB PO SCH ×3 (09:18→17:33)
[2018-06-13] MEDS: amLODIPine 5 MG TAB PO SCH (09:20)
[2018-06-13] MEDS: METOPROLOL 50 MG TAB PO SCH (09:20)
[2018-06-13] MEDS: SPIRONOLACTONE 25 MG TAB PO SCH (09:24)
--- NOTE | 2018-06-13 09:35 | NUR ---
STUDENT RN AND INSTRUCTOR, ADMINISTERED MORNING MEDS. PT TOLERATED WELL. I GAVE THE IVP MED. NO SIGNS OF DISTRESS. NO COMPLAINS. WILL CONTINUE TO MONITOR PT.
[2018-06-13] MEDS ORDERED: POTASSIUM CHLORIDE 20% 40 MEQ/15 ML UDC GT SCH (09:50)
--- NOTE | 2018-06-13 10:00 | NUR ---
PER PT, NOT READY TO GO HOME. SPOKE TO DR. WOOD. DR WOOD WILL SPEAK TO THE PT. WILL LET ME KNOW THE PLAN.
[2018-06-13] MEDS ORDERED: HYDROcodone/APAP 7.5/325 MG 1 TAB PO PRN (10:10)
--- NOTE | 2018-06-13 10:15 | NUR ---
REMOVED L JAYASHREE CATH. VERY LITTLE BLEEDING. ADMINISTERED PRESSURE BANDAGE. ASKED PT TO PUT PRESSURE ON FOR AT LEAST 10 MIN.
--- NOTE | 2018-06-13 10:36 | NUR ---
[employer] Note: I received a call from Urbano at [facility] , she stated they picked up fetus last night. Urbano told me patients Mario was supposed to go to their office and sign documents this morning at 9am. However, Mario did not go to their office. Urbano stated she has been calling Mario, however, his cell phone is currently out of service. Per Urbano, they decided to accept this case as a javan case and are charging patient and/or Mario $50 in total. I told her I will relay information to patient and/or Mario once I met with them. I went to patients room and met with patient and Mario at bedside. I explained to them it is important for them to go to the office of [facility] and sign documents. They verbalized understanding and Mario stated he was going to contact Urbano from [facility] this morning. I called and spoke with Alma from [facility] , told her we no longer need their services and thanked her for her assistance.
--- NOTE | 2018-06-13 12:30 | NUR ---
PHYSICAL THERAPY CO-SIGN The Physical Therapy Progress Notes documented by Bioinformatics Scientist have been reviewed. I concur with the documentation of this ATHLETIC COORDINATOR. Plan: continue PT as per plan of care if she remains in this hospital. Reviewed/Co-Signed by: Samantha Moran DPT Documentation Done by: Jon Ramsey, ATHLETIC COORDINATOR Addendum: 06/13/18 at 1238 by Samantha Moran PT Amended: Links added.
--- NOTE | 2018-06-13 13:59 | NUR ---
RIGHT UPPER ARM EXTRAVASATION SITE SKIN IN BLACK COLOR, ERYTHEMA AND +1 EDEMA. PLAN DISCUSSED WITH DR. WOOD, WILL HAVE US AND SURGEON TO CONSULT PER DR. WOOD. PRIMARY RN AND PT. NOTIFY.
[2018-06-13] MEDS ORDERED: MAG SULF 2000 MG/WATER PREMIX 50 ML IV SCH (14:07)
--- NOTE | 2018-06-13 14:13 | NUR ---
Concrete Technician Note: Patients Mario came to Case Management and Concrete Technician Dept and asked for assistance with directions to [facility] . I printed and provided Mario with directions from [facility] to [facility].
--- NOTE | 2018-06-13 14:18 | NUR ---
ADMINISTERED MORPHINE FOR PAIN. ADMINISTERED MAG RIDER. PT TOLERATING WELL. WILL CONTINUE TO MONITOR PT.
--- NOTE | 2018-06-13 14:28 | NUR ---
PATIENT SLEEPING WHEN ENTERED ROOM. WOKE PATIENT AND ADVISED I HAD HER BREATHING TREATMENT, PATIENT RESPONDED OK. TREATMENT LATE FROM SCHEDULED TIME DUE TO DOCTOR/NURSE CONFERENCE WITH PATIENT ON CARE AND WAS GIVEN A BATH RIGHT AFTER. PATIENT APPEARS COMFORTABLE WITH NO RESPIRATORY DISTRESS OR SOB. B/S: CLEAR BILATERALLY.
--- NOTE | 2018-06-13 14:33 | NUR ---
PT SLEEPING SOUNDLY. NO SIGNS OF DISTRESS. WILL CONTINUE TO MONITOR PT.
[2018-06-13 16:00] VITALS: BP 140/97
--- NOTE | 2018-06-13 19:20 | NUR ---
ENDORSED PT TO THE MEMORIAL DESIGNER NURSE AT BEDSIDE FOR CONTINUITY OF CARE. PT IS IN STABLE CONDITION.
--- NOTE | 2018-06-13 19:21 | NUR ---
RECEIVED REPORT FROM [facility] NURSE YOO AT BEDSIDE FOR CONTINUITY OF CARE.ESTONIAN SPEAKING. PT IV NOTED RIJ 3 LUMEN 1/2 NS 30ML/HR. NO SOB NO S/S OF DISTRESS. BED LOWERED CALL LIGHT WITHIN REACH WILL CONTINUE TO MONITOR.
--- NOTE | 2018-06-13 19:45 | NUR ---
MD MOYA AT BEDSIDE BECAUSE PT HAS SWELLING ON LEFT LOWER LEG. STATED SHE WILL ORDER US SCAN. WILL CONTINUE TO MONITOR.
[2018-06-13] MEDS: SERTRALINE 50 MG TAB PO SCH (20:56)
--- NOTE | 2018-06-13 21:56 | NUR ---
ADMIN PAIN MED 1 HR AGO. PT DENIES PAIN AT THIS TIME. PAIN MED EFFECTIVE WILL CONTINUE TO MONITOR.
[2018-06-13 23:42] VITALS: BP 140/86
--- NOTE | 2018-06-14 | NUR ---
PT RESTING IN BED ASSESS VITALS ALL WITHIN NORMAL LIMITS WILL CONTINUE TO MONITOR.
[2018-06-14] MEDS: ALBUTEROL SULFATE/IPRATROPIU 3 ML SOL IH SCH ×4 (01:13→18:40)
--- NOTE | 2018-06-14 02:10 | NUR ---
NO SOB NO S/S OF DISTRESS ON RA. WILL CONTINUE TO MONITOR.
[2018-06-14] MEDS: PIPER/TAZO 2.25GM/D5W PREMIX 50 ML IV SCH ×3 (05:43→20:31)
[2018-06-14] MEDS: BLOOD GLUCOSE MONITORING 1 DEV DEV FS SCH ×4 (06:23→20:32)
[2018-06-14 06:56] LABS: MONOCYTES # (AUTO) 0.7 K/uL (0.8-1.0); WHITE BLOOD COUNT (AUTO) 13.1 K/uL (4.8-10.8)
[2018-06-14 07:17] LABS: BASOPHILS % (AUTO) 0.3 % (0.0-2.0); EOSINOPHILS # (AUTO) 0.2 K/uL (0-0.4); EOSINOPHILS % (AUTO) 1.4 % (0.0-4.0); HEMATOCRIT 28.4 % (36-48); HEMOGLOBIN 9.4 g/dL (12.0-16.0); LYMPHOCYTES # (AUTO) 2.3 K/uL (2.5-16.5); LYMPHOCYTES % (AUTO) 17.8 % (20.5-51.1); MEAN CORPUSCULAR HEMOGLOBIN 27 pg (27-31); MEAN CORPUSCULAR HGB CONC 33 g/dL (33-37); MEAN CORPUSCULAR VOLUME 81.7 fL (80-94); MONOCYTES % (AUTO) 5.7 % (1.7-9.3); NEUTROPHILS # (AUTO) 9.8 K/uL (1.8-7.7); NEUTROPHILS % (AUTO) 74.8 % (42.2-75.2); PLATELET COUNT (AUTO) 252 K/uL (140-450); RED BLOOD CELL COUNT(AUTO) 3.47 MIL/uL (4.20-5.40)
--- NOTE | 2018-06-14 07:28 | NUR ---
ENDORSED REPORT TO DAYSHIFT NURSE AT BEDSIDE FOR CONTINUITY OF CARE.
--- NOTE | 2018-06-14 07:29 | NUR ---
RECEIVED PT FROM THE DECONTAMINATOR NURSE AT BEDSIDE FOR CONTINUITY OF CARE. PT IS AWAKE AND ORIENTED. RE-INTRODUCED MYSELF AND UPDATED THE BOARD. MD'S ROUNDING. PT STILL REFUSES TO HAVE THE I & D WITH DR ALFRED. PT HAD VENOUS DOPPLER ON THE LLE. NO BLOOD CLOTS. PT STILL HAS DRESSING FOR THE C SEC INCISION. R UA EXTRAVASATION, LUIS FELIPE. LBM WAS YESTERDAY X2. RIJ TRIPLE LUMEN 1/2 NS AT 30ML. V/S WITHIN NORMAL RANGE. PT DENIES PAIN OR SOB AT THIS TIME. PT IS NPO SINCE MIDNIGHT. WILL TALK TO MD ABOUT RESTARTING DIET.
[2018-06-14 07:30] LABS: ANION GAP 8.8 (8-16); CARBON DIOXIDE 27.9 mmol/L (21-32); CREATININE 0.7 mg/dL (0.6-1.3); POTASSIUM 3.7 mmol/L (3.5-5.1)
[2018-06-14 07:43] LABS: MAGNESIUM 1.4 mg/dL (1.8-2.4); PHOSPHORUS 2.9 mg/dL (2.5-4.9)
[2018-06-14 08:00] VITALS: BP 134/105
--- NOTE | 2018-06-14 08:01 | NUR ---
DR ALFRED AND 2 O/R NURSES ARE HERE. PT AGREED TO HAVE THE PROCEDURE DONE. THEY WILL GET THE CONSENT SIGNED AND TAKE HER TO O/R. WILL AWAIT HER RETURN.
--- NOTE | 2018-06-14 08:15 | NUR ---
WHEELED PT OUT ON BED FOR OR.
[2018-06-14] MEDS ORDERED: HYDROGEN PEROXIDE 3% 240 ML BTL TP ONE ×2 (08:24→09:28)
[2018-06-14] MEDS ORDERED: SEVOFLURANE 250 ML BTL INH ONE (08:25)
[2018-06-14] MEDS ORDERED: LIDOCAINE MPF 1% - 5 mL VIAL 0 ML ONE (08:32)
[2018-06-14] MEDS: BUPIVACAINE-MPF/EPI 0.25% 30 ML VIAL INJ ONE ×2 (08:36→08:50)
[2018-06-14] MEDS ORDERED: MIDAZOLAM 2 MG/2 ML VIAL ONE (08:38)
[2018-06-14] MEDS ORDERED: fentaNYL 0.05 MG/ML VIAL ONE (08:38)
[2018-06-14] MEDS ORDERED: BUPIVACAINE-MPF 0.5% 10 ML VIAL INJ ONE (08:40)
[2018-06-14] MEDS ORDERED: LIDOCAINE/EPI MPF 1%1:200000 30 ML VIAL INJ ONE (08:47)
[2018-06-14] MEDS: hydrALAZINE 25 MG TAB PO SCH ×3 (09:00→16:46)
[2018-06-14] MEDS ORDERED: MEPERIDINE 25 MG/ML SYR IVP PRN (09:10)
[2018-06-14] MEDS ORDERED: diphenhydrAMINE 50 MG/ML VIAL IVP PRN (09:10)
[2018-06-14] MEDS ORDERED: HYDROmorphone 1 MG/ML AMP IVP PRN (09:10)
[2018-06-14] MEDS ORDERED: ONDANSETRON 4 MG/2 ML VIAL IVP PRN (09:10)
[2018-06-14] MEDS ORDERED: POTASSIUM CHLORIDE 20% 40 MEQ/15 ML UDC GT SCH (09:50)
[2018-06-14] MEDS ORDERED: MAG SULF 2000 MG/WATER PREMIX 50 ML IV SCH (10:00)
[2018-06-14] MEDS ORDERED: HYDROmorphone PFS 2 MG/ML SYR ONE (10:25)
--- NOTE | 2018-06-14 10:45 | NUR ---
PT ARRIVED BACK ON THE UNIT. PT IS IN STABLE CONDITION. PT C/O PAIN BUT WAS RECENTLY MEDICATED. PER O/R, HAD A HARD TIME WAKING HER UP AND O2 SAT DESAT. WILL WAIT AND USE NON-MEDICATION METHODS TO MAKE HER MORE COMFORTABLE. ICE CHIPS, JUICE OFFERED. WILL CONTINUE TO MONITOR PT.
[2018-06-14] MEDS: LACTATED RINGERS 1,000 ML IV SCH ×2 (11:24→16:46)
[2018-06-14] MEDS: PANTOPRAZOLE 40 MG INJ VIAL IVP SCH (11:27)
[2018-06-14] MEDS: LACTOBACILLUS RHAMNOSUS GG 1 EACH CAP PO SCH (11:27)
[2018-06-14] MEDS: METOPROLOL 50 MG TAB PO SCH (11:29)
[2018-06-14] MEDS: MORPHINE SULFATE 2 MG/ML SYR IVP PRN ×2 (12:45→23:47)
--- NOTE | 2018-06-14 12:50 | NUR ---
ADMINISTERED MORPHINE FOR PAIN, ZOSYN AND HYDRALAZINE. PT TOLERATED WELL. WILL CONTINUE TO MONITOR PT.
--- NOTE | 2018-06-14 13:30 | NUR ---
PT IS STARTING PHYSICAL THERAPY. CANT TAKE HHN TX NOW. PT IS AWARE TO CALL RT ANY TIME IF SHE IS SOB. PT VERBALIZED UNDERSTANDING . WILL CONTINUE TO MONITOR.
--- NOTE | 2018-06-14 14:26 | NUR ---
PHYSICAL THERAPY CO-SIGN The Physical Therapy Progress Notes documented by Technical Publications Manager have been reviewed. I concur with the documentation of this JUKEBOX COIN COLLECTOR. Plan: continue PT as per plan of care as she is making good and steady progress with P.T. services. Reviewed/Co-Signed by: Samantha Moran DPT Documentation Done by: Jon Ramsey JUKEBOX COIN COLLECTOR Addendum: 06/14/18 at 1429 by Samantha Moran PT Amended: Links added.
--- NOTE | 2018-06-14 14:30 | NUR ---
PT ROOM IS A MESS. HOUSE KEEPING HERE TO CLEAN ROOM. EVERYTHING ON THE FLOOR. SPOUSE AND CHILD GONE. PT CRYING. DR WOOD AND SS THERE W/ PT DISCUSSING DISCHARGE. POSSIBLY TODAY OR TOMORROW. WILL CONTINUE TO MONITOR PT.
--- NOTE | 2018-06-14 14:45 | NUR ---
06/14/18 RD FOLLOW UP COMPLETED PLEASE REFER TO NUTRITION ASSESSMENT UNDER CARE ACTIVITY FOR ESTIMATED NUTRITIONAL NEEDS. 1. CONTINUE NA2GM DIET TOLERATED 2. PROVIDED EDUCATION ON HEART HEALTHY DIET 3. RD TO FOLLOW-UP 3-5 DAYS, MODERATE RISK BERENICE TEE, RD
[2018-06-14] MEDS ORDERED: ASCORBIC ACID 500 MG TAB PO SCH (15:00)
--- NOTE | 2018-06-14 15:00 | NUR ---
NOTIFIED DR BENOIT OF MAG 1.4. SHE TEXTED DR WOOD TO NOTIFY HIM. DR WOOD ATTENDING. NO ORDERS. WILL WAIT FOR ORDER.
--- NOTE | 2018-06-14 15:17 | NUR ---
PT IS VISITING WITH A FRIEND. NO SIGNS OF DISTRESS AT THIS TIME. WILL CONTINUE TO MONITOR PT.
[2018-06-14 16:00] VITALS: BP 111/79
--- NOTE | 2018-06-14 16:00 | NUR ---
VS WITHIN NORMAL RANGE. CHANGED OUTER DRESSING ONLY. DID NOT REMOVE PACKING. IT HAS BEEN LESS THAN 24 HRS SINCE SURGERY. WILL ENDORSE TO FLIGHT COORDINATOR TO ENDORSE TO TOMORROW DAY SHIFT RN. WAIT FOR DULCE CORTES TO DO IT BEFORE D/C.
--- NOTE | 2018-06-14 16:50 | NUR ---
ADMINISTERED VIT C AND HELD HYDRALAZINE FOR DECREASE BP OF 111/79. PT TOLERATED WELL.
--- NOTE | 2018-06-14 19:15 | NUR ---
ENDORSED PT TO THE SHUTTLER CAR NURSE AT BEDSIDE FOR CONTINUITY OF CARE. PT IS IN STABLE CONDITION.
--- NOTE | 2018-06-14 19:30 | NUR ---
RECEIVED FROM AM RN IN BED WITH VISITORS. DRESSING TO RAC INTACT AND NO BLEEDING NOTED. ABLE TO VERBALIZE NEEDS WELL. ABLE TO USE CALL LIGHT WELL. A/O X 4. ROM X 4. CARE PLANS FOR THE NIGHT DISCUSSED WITH HER. DENIES ANY PAIN AT THIS TIME. ENCOURAGED TO CALL FOR ANY HELP SHE MAY NEED OR IF IN PAIN.
[2018-06-14] MEDS: SERTRALINE 50 MG TAB PO SCH (20:31)
--- NOTE | 2018-06-14 21:30 | NUR ---
PT. WENT BM IN BEDSIDE COMMODE ASSISTED BY SPOUSE. PT. IN GOOD AFFECT. ABLE TO USE CALL LIGHT FOR HELP.
--- NOTE | 2018-06-14 22:41 | NUR ---
PT. SLEEPING. DRESSING TO RAC INTACT AND NO BLEEDING.
[2018-06-14 23:34] VITALS: BP 140/85
--- NOTE | 2018-06-14 23:36 | NUR ---
PT. WOKE UP AND STATED SHE JUST CAME BACK FROM USING HER BEDSIDE COMMODE TO GO HAVE A BM. SITTING AT THIS TIME IN BED. ABLE TO USE CALL LIGHT FOR HELP. A/O X 4. ROM X 4. DENIES PAIN AT THIS TIME.
--- NOTE | 2018-06-14 23:52 | NUR ---
PT. REQUESTED FOR PAIN RELIEVER RT STATED THAT HER RAC I AND D IS STARTING TO BOTHER HER AND THE PAIN IS KIND OF EATING HER. 03/28 . MEDICATED REQUESTED.
[2018-06-15] MEDS: ALBUTEROL SULFATE/IPRATROPIU 3 ML SOL IH SCH ×4 (00:08→19:43)
[2018-06-15] MEDS: LACTATED RINGERS 1,000 ML IV SCH ×2 (03:27→13:15)
--- NOTE | 2018-06-15 04:00 | NUR ---
SLEEPING. CALL LIGHT WITH IN REACH. 3 PORTS RIJ FLUSHED WITH NS. NO RESTLESSNESS.
[2018-06-15] MEDS: PIPER/TAZO 2.25GM/D5W PREMIX 50 ML IV SCH ×2 (05:00→13:08)
[2018-06-15] MEDS: BLOOD GLUCOSE MONITORING 1 DEV DEV FS SCH ×2 (05:34→11:39)
--- NOTE | 2018-06-15 06:33 | NUR ---
SLEPT WELL THIS SHIFT. NO COMPLAINTS DONE. ASSISTED WITH ADLS. ABLE TO VERBALIZE NEEDS WELL. PT. ABLE TO GO RESTROOM INSIDE ROOM. ROM X 4. CLEAR SPEECH.
--- NOTE | 2018-06-15 07:20 | NUR ---
RECEIVED REPORT FROM NIGHTSHIFT NURSE AT BEDSIDE. PATIENT PRESENTS IN SUPINE POSITION WITH PILLOWS ELEVATING BOTH ARMS. NO DISTRESS NOTED AT THIS TIME. NO PAIN NOTED. PATIENT HAS A RIGHT IJ TRIPLE LUMEN INFUSING LACTATED RINGERS AT 70 ML/HR. PATIENT HAS DRESSING ON RIGHT ARM AND ABDOMEN DRY AND INTACT. SAFETY MEASURES ENSURED. PATIENT COMMODE AT BEDSIDE. UPDATED BOARD IN PATIENT'S ROOM. WILL CONTINUE TO MONITOR PATIENT.
[2018-06-15 07:34] LABS: BASOPHILS % (AUTO) 0.3 % (0.0-2.0); EOSINOPHILS # (AUTO) 0.2 K/uL (0-0.4); EOSINOPHILS % (AUTO) 1.8 % (0.0-4.0); HEMATOCRIT 25.2 % (36-48); HEMOGLOBIN 8.2 g/dL (12.0-16.0); LYMPHOCYTES # (AUTO) 2.4 K/uL (2.5-16.5); LYMPHOCYTES % (AUTO) 19.3 % (20.5-51.1); MEAN CORPUSCULAR HEMOGLOBIN 27 pg (27-31); MEAN CORPUSCULAR HGB CONC 33 g/dL (33-37); MEAN CORPUSCULAR VOLUME 83.3 fL (80-94); MONOCYTES # (AUTO) 0.7 K/uL (0.8-1.0); MONOCYTES % (AUTO) 5.9 % (1.7-9.3); NEUTROPHILS % (AUTO) 72.7 % (42.2-75.2); PLATELET COUNT (AUTO) 266 K/uL (140-450); RED BLOOD CELL COUNT(AUTO) 3.02 MIL/uL (4.20-5.40); RED CELL DISTRIBUTION WIDTH 15.1 % (11.6-13.7); WHITE BLOOD COUNT (AUTO) 12.4 K/uL (4.8-10.8)
[2018-06-15 07:42] VITALS: BP 147/100
[2018-06-15 07:52] LABS: ANION GAP 9.8 (8-16); CREATININE 0.7 mg/dL (0.6-1.3); POTASSIUM 3.8 mmol/L (3.5-5.1)
[2018-06-15 08:03] LABS: MAGNESIUM 1.4 mg/dL (1.8-2.4); PHOSPHORUS 2.4 mg/dL (2.5-4.9)
[2018-06-15] MEDS: METOPROLOL 50 MG TAB PO SCH ×2 (08:13→09:02)
[2018-06-15] MEDS: hydrALAZINE 25 MG TAB PO SCH ×3 (08:13→13:00)
[2018-06-15] MEDS: PANTOPRAZOLE 40 MG INJ VIAL IVP SCH ×2 (08:14→09:00)
--- NOTE | 2018-06-15 08:20 | NUR ---
OFFERED MEDICATIONS TO PATIENT. PATIENT WANTS TO EAT FIRST BEFORE SHE TAKES MEDICATION. WILL OFFER MEDICATIONS AGAIN AFTER BREAKFAST.
[2018-06-15] MEDS: LACTOBACILLUS RHAMNOSUS GG 1 EACH CAP PO SCH (08:59)
[2018-06-15] MEDS ORDERED: amLODIPine 5 MG TAB PO SCH (09:00)
[2018-06-15] MEDS ORDERED: ASCORBIC ACID 500 MG TAB PO SCH (09:00)
--- NOTE | 2018-06-15 09:00 | NUR ---
PATIENT TOOK AM MEDICATIONS. APRESOLINE NOT GIVEN TO PATIENT BECAUSE BLOOD PRESSURE IS AT 136/80, 92 HR.
[2018-06-15] MEDS ORDERED: SERT-146 PO (10:07)
[2018-06-15] MEDS ORDERED: HYDR-4420 PO (10:07)
[2018-06-15] MEDS ORDERED: AMLO5TAB4 PO (10:07)
[2018-06-15] MEDS ORDERED: METO50TA99 PO (10:07)
[2018-06-15] MEDS ORDERED: AMOX-999 PO (10:10)
[2018-06-15] MEDS ORDERED: ASPI81CT89 PO (11:10)
--- NOTE | 2018-06-15 12:54 | NUR ---
WOUND CARE RE-EVALUATION NOTE: S/P DEBRIDEMENT RIGHT UPPER ARM EXTRAVASATION SITE -SURGICAL WOUND S/P DEBRIDEMENT RIGHT UPPER ARM EXTRAVASATION SITE, [id number] WOUND BED IS CLEAN, 100 % RED, MUSCLE OBSERVED, MOIST, NO DRAINAGE, NO ODOR, WITH IRREGULAR WOUND SHAPE. MEGHA-WOUND SKIN INTACT. PAIN 2/10 -LOWER ABDOMEN S/P SURGICAL WOUNDS, WOUND SITE CLEAN AND DRY WITH MULTIPLE FLOWER IN PLACE, NO S/S OF WOUND DEHISCENCE RECOMMENDATIONS: -CLEANSE LOWER ABDOMEN S/P SURGICAL WOUNDS WITH NS. PAT DRY, APPLY DRY DRESSING QD AND PRN IF SOILING. -CLEANSE RIGHT UPPER ARM SURGICAL WOUND WITH NS. PAT DRY, APPLY SILVASORB GEL AND ADAPTIC DRESSING AND COVER WITH DRY DRESSING AND KERLIX ROLLS CHANGE EVERY OTHER DAY AND PRN IF SOILING -INSTRUCT PT. TO HOLD ON ABDOMEN SURGICAL WOUND SITE WHEN COUGH OR CHANGE OF POSITION. -PLEASE FOLLOW UP SURGEON 7-10 DAYS AFTER DISCHARGED. WOUND CARE TEACHING STEP BY STEP DONE WITH DEMONSTRATION, WITH PRIMARY RN AT BED SIDE. PT. EXPRESS SHE UNDERSTAND BUT WITH THE CONCERN UNABLE TO PERFORM WOUND CARE BY HERSELF, AND IS NOT AVAILABLE ALL THE TIMES. ALL ABOVE INFORMATION INCLUDING WOUND CARE TEACHING WAS TRANSLATED BY #[id number] GWEN. TRANSFORMER ASSEMBLER AND DR. WOOD NOTIFY OF WOUND CARE RECOMMENDATIONS AND PTS CONCERN. PRIMARY RN ALSO INFORMED TO CONTINUE TO CONTACT FAMILY MEMBER AND CONTINUE WOUND CARE TEACHING. PRIMARY RN VERBALIZES UNDERSTANDING.
--- NOTE | 2018-06-15 12:54 | NUR ---
TOOK PICTURES OF WOUNDS WITH WOUND CARE NURSE PERFORMING DRESSING CHANGE. WILL CONTINUE TO MONITOR PATIENT.
--- NOTE | 2018-06-15 14:15 | NUR ---
PATIENT RESTING AT THIS TIME. NO DISTRESS NOTED. WILL CONTINUE TO MONITOR PATIENT.
[2018-06-15 16:00] VITALS: BP 133/95
--- NOTE | 2018-06-15 16:04 | NUR ---
Automation And Controls Manager Note: I met with patient at bedside. Patient speaks [place]an, does not speak Bengali. Per patient, she does not have a primary care physician at this time and does not have funds to pay for medical appointments co-pays. I offered to refer her to [facility] , [facility] [place] is a program designed to follow individual/patient minimum of 30 days post-hospitalization with home visits and phone support as needed. A Licensed Nurse or Seaman will customize a home visit plan of patient needs and community based resources are provided regardless of insurance coverage or ability to pay. Patient agreed for me to refer her to [facility] and provided me with her home address [address] [place] [address]. [place] [address]. I called and spoke with Tari Mckeon from [facility]. Per Tari, they serve the [facility] and are able to assist patient with finding a low cost or no cost medical clinic, assist patient and with finding a low cost or no cost mental health provider, and provide patient with education on how to change wound dressings and properly care for wound. Tari stated their nurses are not able to physically provide wound care but are able to provide education on wound care. Tari stated they have staff that speak [place]. Tari requested I fax patient's face sheet, list of medication, and HNP to her, fax . I faxed info to Tari. I received a call from Tari, per Tari, they will follow up with patient at home.
--- NOTE | 2018-06-15 17:20 | NUR ---
DID WOUND CARE WITH DIANNA [id number] ON PHONE. PATIENT'S AT BEDSIDE LEARNING HOW TO PERFORM WOUND CARE FOR PATIENT. PATIENT'S VERBALIZED UNDERSTANDING OF HOW TO PERFORM WOUND CARE.
[2018-06-15] MEDS ORDERED: ACET-2863 PO (17:22)
--- NOTE | 2018-06-15 18:45 | NUR ---
USED TRANSLATING SERVICE TERRANCE [id number] FOR DISCHARGE INSTRUCTIONS. PATIENT VERBALIZED UNDERSTANDING. REMOVED CENTRAL LINE FROM PATIENT.
--- NOTE | 2018-06-15 19:05 | NUR ---
GAVE REPORT TO NIGHTSHIFT NURSE AT BEDSIDE. PATIENT IN STABLE CONDITION.
[2018-06-15] MEDS: ACETAMINOPHEN 325 MG TAB PO PRN (20:00)
--- NOTE | 2018-06-15 20:00 | NUR ---
PT C/O 04/28 PAIN. IV SITE DISCONTINUED BY AM SHIFT NURSE. EXPLAINED TO PT IF SHE TAKES NORCO SHE WILL NEED TO STAY FOR AT LEAST 2HR FOR OBSERVATION OF ADVERSE SIDE EFFECTS PENDING DISCHARGE. PT VERBALIZED UNDERSTANDING BUT STATES SHE WANTS TO GO HOME SOON & PO ACETAMINOPHEN IS ADEQUATE FOR HER. PO ACETAMINOPHEN ADMINISTERED.
--- NOTE | 2018-06-15 20:05 | NUR ---
PT REQUESTED FOR PRESCRIPTION NOTE FOR ALBUTEROL PUFF. DR MOYA NOTIFIED OR PT'S REQUEST.
--- NOTE | 2018-06-15 20:10 | NUR ---
DR MOYA COMPLETED ALBUTEROL RX NOTE, RX NOTE GIVEN TO PT.
--- NOTE | 2018-06-15 20:20 | NUR ---
PT LEFT UNIT AT THIS TIME VIA WHEELCHAIR, ACCOMPANIED BY HEALTH INFORMATION CLERK, SPOUSE, & CHILD. PT DENIES ANY DISCOMFORT UPON DISCHARGE, FLACC 0, RESPIRATIONS EVEN & UNLABORED. RT FA & RT NECK DRESSINGS CLEAN, DRY, & INTACT. NAME BAND REMOVED. ALL BELONGINGS WITH SPOUSE.
== END 2018-06-15 20:20 | disposition home or self-care (01) | DRG 540 ==
LOC: MLD 13:13 → MFCC 06-06 14:47 → MIC 06-07 07:16 → MTU 06-10 18:22
PROVIDERS: ADMIT General Practice; ATTEND General Practice
PROC: 5A1945Z Respiratory Ventilation, 24-96 Consecutive Hours (ICD-10-PCS; 2018-06-07)
PROC: 5A12012 Performance of Cardiac Output, Single, Manual (ICD-10-PCS; 2018-06-07)
PROC: 0BH17EZ Insertion of Endotracheal Airway into Trachea, Via Natural or Artificial Opening (ICD-10-PCS; 2018-06-07)
PROC: 05HM33Z Insertion of Infusion Device into Right Internal Jugular Vein, Percutaneous Approach (ICD-10-PCS; 2018-06-07)
PROC: 10D00Z1 Extraction of Products of Conception, Low, Open Approach (ICD-10-PCS; principal; 2018-06-07 07:30)
PROC: 02HV33Z Insertion of Infusion Device into Superior Vena Cava, Percutaneous Approach (ICD-10-PCS; 2018-06-08)
PROC: B548ZZA Ultrasonography of Superior Vena Cava, Guidance (ICD-10-PCS; 2018-06-08)
PROC: 5A1D70Z Performance of Urinary Filtration, Intermittent, Less than 6 Hours Per Day (ICD-10-PCS; 2018-06-08)
PROC: 0JBG0ZZ Excision of Right Lower Arm Subcutaneous Tissue and Fascia, Open Approach (ICD-10-PCS; 2018-06-14)
DX: O98.913 Unspecified maternal infectious and parasitic disease complicating pregnancy, third trimester (principal); R65.20 Severe sepsis without septic shock; I21.A1 Myocardial infarction type 2; J69.0 Pneumonitis due to inhalation of food and vomit; E43 Unspecified severe protein-calorie malnutrition; A41.9 Sepsis, unspecified organism; J96.01 Acute respiratory failure with hypoxia; J96.02 Acute respiratory failure with hypercapnia; N17.0 Acute kidney failure with tubular necrosis; G93.40 Encephalopathy, unspecified; I46.9 Cardiac arrest, cause unspecified; J45.901 Unspecified asthma with (acute) exacerbation; E87.5 Hyperkalemia; E66.9 Obesity, unspecified; I11.0 Hypertensive heart disease with heart failure; O99.42 Diseases of the circulatory system complicating childbirth; E87.4 Mixed disorder of acid-base balance; O99.324 Drug use complicating childbirth; O99.214 Obesity complicating childbirth; Z78.1 Physical restraint status; F33.2 Major depressive disorder, recurrent severe without psychotic features; I50.43 Acute on chronic combined systolic (congestive) and diastolic (congestive) heart failure; I16.0 Hypertensive urgency; E87.8 Other disorders of electrolyte and fluid balance, not elsewhere classified; I42.9 Cardiomyopathy, unspecified; I96 Gangrene, not elsewhere classified; I27.21 Secondary pulmonary arterial hypertension; E83.41 Hypermagnesemia; O26.833 Pregnancy related renal disease, third trimester; E83.39 Other disorders of phosphorus metabolism; E83.42 Hypomagnesemia; O36.4XX0 Maternal care for intrauterine death, not applicable or unspecified; R73.9 Hyperglycemia, unspecified; E78.2 Mixed hyperlipidemia; F15.10 Other stimulant abuse, uncomplicated; E03.9 Hypothyroidism, unspecified; O11.4 Pre-existing hypertension with pre-eclampsia, complicating childbirth; O10.12 Pre-existing hypertensive heart disease complicating childbirth; O99.52 Diseases of the respiratory system complicating childbirth; O34.219 Maternal care for unspecified type scar from previous cesarean delivery; O99.284 Endocrine, nutritional and metabolic diseases complicating childbirth; O23.43 Unspecified infection of urinary tract in pregnancy, third trimester; O99.02 Anemia complicating childbirth; O99.344 Other mental disorders complicating childbirth; E87.6 Hypokalemia; O77.0 Labor and delivery complicated by meconium in amniotic fluid; Z68.37 Body mass index [BMI] 37.0-37.9, adult; Z3A.34 34 weeks gestation of pregnancy; Z37.1 Single stillbirth
CPT/HCPCS: 36415; 36600; 71045; 76805; 76815; 76881; 80048; 80053; 80305; 81001; 82150; 82803; 82948; 83036; 83605; 83690; 83735; 83880; 84100; 84436; 84439; 84443; 84479; 84484; 85025; 85379; 85610; 85730; 87040; 87070; 87075; 87081; 87086; 87205; 92526; 92610; 92950; 93005; 93922; 93925; 93930; 93970; 93971; 94002; 94003; 94640; 97110; 97116; 97161-GP; 97530; A6248; C9113; J0360; J0610; J0696; J0702; J1170; J1642; J1644; J1720; J1815; J1940; J2001; J2060; J2210; J2250; J2270; J2405; J2543; J2590; J2704; J2760; J3010; J3105; J3475; J3490; J7030; J7042; J7060; J7120; J7613; J7620; Q0092

== ENCOUNTER 2018-06-16 15:36 | Emergency (ER) | payer MEDICAID ==
[~2018-06-16] VITALS: Ht 157.5 cm; Wt 82.6 kg
[~2018-06-16 15:36] MED LIST changes: +ACET-2863 PO; +AMLO5TAB4 PO; +AMOX-999 PO; +ASPI81CT89 PO; +HYDR-4420 PO; +METO50TA99 PO; +SERT-146 PO
--- NOTE | 2018-06-16 15:46 | NUR ---
PT AMBULATED TO ER BED 11
--- NOTE | 2018-06-16 15:57 | NUR ---
BIB FOR MED REFILL & C/O L ARM WOUND & PAIN. PT DC FROM [facility] YESTERDAY S/P SEPSIS & UTI. DENIES N/V/D; AAOX4 WITH EVEN AND STEADY GAIT; LUNGS CLEAR BL. PT DENIES ANY FEVER, CP, SOB, OR COUGH AT THIS TIME; PATIENT STATES PAIN OF 10/10 AT THIS TIME. PATIENT POSITIONED FOR COMFORT; HOB ELEVATED; BEDRAILS UP X2; BED DOWN. ER MD MADE AWARE OF PT STATUS.
[2018-06-16] MEDS ORDERED: KETOROLAC 60 MG/2 ML VIAL IM ONE (16:50)
--- NOTE | 2018-06-16 17:23 | NUR ---
Patient discharged with v/s stable. Written and verbal after care instructions given and explained. Patient alert, oriented and verbalized understanding of instructions. Ambulatory with steady gait. All questions addressed prior to discharge. ID band removed. Patient advised to follow up with PMD. Rx of ASPIRIN, METOPROLOL, NORCO, AMLODIPINE, SERTYRALINE & AUGMENTINE given. Patient educated on indication of medication including possible reaction and side effects. Opportunity to ask questions provided and answered.
[2018-06-16 17:25] VITALS: BP 130/88
== END 2018-06-16 17:23 | disposition home or self-care (01) ==
LOC: MED 15:36
DX: R10.30 Lower abdominal pain, unspecified (principal); R07.89 Other chest pain; J45.909 Unspecified asthma, uncomplicated; E11.9 Type 2 diabetes mellitus without complications; I10 Essential (primary) hypertension; Z48.01 Encounter for change or removal of surgical wound dressing; Z76.0 Encounter for issue of repeat prescription; Z79.899 Other long term (current) drug therapy; Z79.82 Long term (current) use of aspirin
CPT/HCPCS: 96372; 99283; J1885

== ENCOUNTER 2018-06-18 07:55 | Inpatient (IN) | payer MEDICAID ==
[2018-06-18] VITALS (14 sets, daily range): BP systolic 128–149; BP diastolic 71–124
[~2018-06-18] VITALS: Ht 154.9 cm; Wt 77.6 kg
[~2018-06-18 07:55] MED LIST changes: -HYDR-4420 PO
--- NOTE | 2018-06-18 07:56 | NUR ---
PT AMBULATES TO BED 7
--- NOTE | 2018-06-18 07:57 | NUR ---
CALLED RT FOR TREATMENT
--- NOTE | 2018-06-18 08:02 | NUR ---
RT AT BEDSIDE
--- NOTE | 2018-06-18 08:04 | NUR ---
2L O2 VIA NASAL CANULA APPLIED. PATIENT TOLERATING WELL. O2 SAT 100%
--- NOTE | 2018-06-18 08:04 | NUR ---
PT C/O SOB SINCE LAST NIGHT WITH ACCESSORY MUSCLE USE AND DIMINISHED BS; MULTIPLE ADMIT THE FOR THIS MONTH. PT STATES SHE JUST NEEDS OXYGEN. DIMINISHED LUNG SOUNDS; NO AIR FLOW AUSCULTATED. O2 VIA NASAL CANULA APPLIED. PATIENT STATES PAIN OF 0/10 AT THIS TIME; PATIENT POSITIONED FOR COMFORT; HOB ELEVATED; BEDRAILS UP X2; BED DOWN. ER MD MADE AWARE OF PT STATUS.
--- NOTE | 2018-06-18 08:05 | NUR ---
Patient appears in distress, assessment by RN completed. ED md made aware of pt status. ED md advised he will see her "when she is in the system."
--- NOTE | 2018-06-18 08:09 | NUR ---
CALLED TO ER FOR TX ON PATIENT WITH HISTORY OF ASTHMA. NO TX ORDERED YET. PATIENT ASSESSED: O2 SATS 100% ON 2L NASAL CANULA, RESPIRATIONS 28, PULSE 111. BREATH SOUNDS DIMINISHED ON BILATERAL ANTERIOR UPPER LOBES. PATIENT VERBALLY STATED SHE DOES NOT WANT TREATMENTS.
[2018-06-18] MEDS ORDERED: ALBU-118 IH (08:10)
--- NOTE | 2018-06-18 08:17 | NUR ---
DR CORONADO EVALUATING AT BEDSIDE
[2018-06-18] MEDS ORDERED: LORazepam 2 MG/ML VIAL IVP ONE ×2 (08:25→09:35)
[2018-06-18] MEDS ORDERED: ALBUTEROL SULFATE/IPRATROPIU 3 ML SOL IH ONE (08:25)
[2018-06-18] MEDS ORDERED: FAMOTIDINE 20 MG/2 ML VIAL IVP ONE (08:25)
[2018-06-18] MEDS ORDERED: methylPREDNISolone SS 125 MG/2 ML VIAL IVP ONE (08:25)
--- NOTE | 2018-06-18 08:57 | NUR ---
PATIENT IS COUGHING UP COPIOUS AMOUNTS OF BLOOD TINGED SPUTUM. PATIENT REPORTS IT STARTED LAST NIGHT.
--- NOTE | 2018-06-18 09:14 | NUR ---
PT MOVED TO BED 10
[2018-06-18 09:18] LABS: BASOPHILS # (AUTO) 0.2 K/uL (0.00-0.22); BASOPHILS % (AUTO) 1.2 % (0.0-2.0); EOSINOPHILS # (AUTO) 0.2 K/uL (0-0.4); EOSINOPHILS % (AUTO) 1.3 % (0.0-4.0); HEMATOCRIT 30.2 % (36-48); HEMOGLOBIN 9.7 g/dL (12.0-16.0); LYMPHOCYTES # (AUTO) 2.8 K/uL (2.5-16.5); LYMPHOCYTES % (AUTO) 22.3 % (20.5-51.1); MEAN CORPUSCULAR HEMOGLOBIN 27 pg (27-31); MEAN CORPUSCULAR HGB CONC 32 g/dL (33-37); MEAN CORPUSCULAR VOLUME 83.1 fL (80-94); MONOCYTES # (AUTO) 0.6 K/uL (0.8-1.0); MONOCYTES % (AUTO) 5.1 % (1.7-9.3); NEUTROPHILS # (AUTO) 8.8 K/uL (1.8-7.7); NEUTROPHILS % (AUTO) 70.1 % (42.2-75.2); PLATELET COUNT (AUTO) 361 K/uL (140-450); RED BLOOD CELL COUNT(AUTO) 3.63 MIL/uL (4.20-5.40); RED CELL DISTRIBUTION WIDTH 15.7 % (11.6-13.7); WHITE BLOOD COUNT (AUTO) 12.5 K/uL (4.8-10.8)
[2018-06-18] MEDS ORDERED: ONDANSETRON 4 MG/2 ML VIAL IVP PRN (09:50)
[2018-06-18] MEDS ORDERED: ACETAMINOPHEN 325 MG TAB PO PRN (09:50)
[2018-06-18] MEDS ORDERED: ZOLPIDEM 5 MG TAB PO PRN (09:50)
--- NOTE | 2018-06-18 10:04 | NUR ---
CENTRAL LINE PREFORMED BY RESIDENT MD. PATIENT WAS ANXIOUS THROUGHOUT.
[2018-06-18] MEDS ORDERED: HEPARIN PER PHARMACY MC PRN (10:05)
[2018-06-18 10:09] LABS: PROTHROMBIN TIME 9.2 secs (10.8-13.4)
[2018-06-18 10:11] LABS: ANION GAP 7.6 (8-16); CARBON DIOXIDE 28.5 mmol/L (21-32); CREATININE 0.7 mg/dL (0.6-1.3); POTASSIUM 4.1 mmol/L (3.5-5.1)
[2018-06-18 10:18] LABS: ALBUMIN 2.2 g/dL (3.4-5.0); MAGNESIUM 1.5 mg/dL (1.8-2.4); TOTAL BILIRUBIN 0.2 mg/dL (0.0-1.0)
--- NOTE | 2018-06-18 10:26 | NUR ---
Patient will be admitted to care of DR. DELATORRE. Admited to ICU. Will go to room 1. Belongings list completed. Report to YOEL RODRIGUEZ.
--- NOTE | 2018-06-18 10:27 | NUR ---
PT TAKEN TO ICU BY RNS TEGAN AND ELVIN WITH EMT FREDERICK
--- NOTE | 2018-06-18 10:30 | NUR ---
RECEIVED BEDSIDE REPORT FROM TIER AND DETONATOR FOR CONTINUITY OF CARE. PATIENT IS AAOX4, ABLE TO FOLLOW COMMANDS AND MAKE NEEDS KNOWN. PATIENT IS ON NONREBREATHER MASK, BREATHING IS LABORED AND TACHYPNEIC, ST ON MONITOR, DENIES ANY PAIN. PATIENT SKIN IS NOT INTACT, SHE HAS WOUND TO RIGHT UPPER ARM AND LOWER ABDOMINAL S/P INCISION. PATIENT HAS ALEJO CATHETER IN PLACE TO CLEAR YELLOW URINE. HOB IS 60 DEGREES IN LOW POSITION. ALL SAFETY PRECAUTIONS IN PLACE, CALL LIGHT WITHIN REACH. WILL CONTINUE TO MONITOR
[2018-06-18 10:37] LABS: APPEARANCE,URINE CLEAR (CLEAR); BILIRUBIN,URINE NEGATIVE (NEGATIVE); BLOOD, URINE NEGATIVE (NEGATIVE); COLOR,URINE YELLOW (YELLOW); LEUKOCYTE ESTERASE ,URINE NEGATIVE (NEGATIVE); NITRITE, URINE NEGATIVE (NEGATIVE); UGLUCOSE NEGATIVE (NEGATIVE)
--- NOTE | 2018-06-18 10:46 | NUR ---
RT AT BEDSIDE TO PLACE BIPAP ON PATIENT, WILL CONTINUE TO MONITOR.
--- NOTE | 2018-06-18 10:50 | NUR ---
called to icu [address] pt on bipap due to respiratory distress, settings 12\6 rr 16 fio2 30%, alarms on and audible ambu bag at side of bipap, b\s are coarse bilaterally,pt wearing large face mask with protetic gel in place. dr. dyer will order breathing tx and abg in one hour on the settings stated above.
[2018-06-18 10:51] LABS: FREE T4 (FREE THYROXINE) 1.39 ng/dL (0.76-1.46); PHOSPHORUS 3.6 mg/dL (2.5-4.9); THYROID STIMULATING HORMONE 3.03 uIU/mL (0.34-3.74)
[2018-06-18 10:55] LABS: BARBITURATE, URINE NEG. ng/ml (NEG <=200); BENZODIAZEPINE, URINE NEG. ng/mL (NEG <=200); CANNABINOID, URINE NEG. ng/mL (NEG <=50); COCAINE, URINE NEG. ng/mL (NEG <=300); OPIATE, URINE NEG. ng/mL (NEG <=2000)
[2018-06-18 11:20] LABS: PHENCYCLIDINE SCREEN,URINE NEG. ng/mL (NEG <=25)
--- NOTE | 2018-06-18 12:09 | NUR ---
ABG DRAWN ON RR WITHOUT INCIDENT AND RESULTS CALLED TO DR. VALENTIN AND DECREASED FIO2 TO 28%
[2018-06-18] MEDS: NACL 0.9% 250 ML IV SCH (12:30)
[2018-06-18] MEDS: hePARIN / DEXT 5% PREMIX 250 ML IV SCH ×2 (12:42→22:44)
[2018-06-18] MEDS ORDERED: MAG SULF 2000 MG/WATER PREMIX 50 ML IV SCH (13:00)
[2018-06-18] MEDS ORDERED: LORATADINE 10 MG TAB PO SCH (13:30)
--- NOTE | 2018-06-18 13:37 | NUR ---
PATIENT'S AT BEDSIDE, UPDATED ON PATIENT'S CONDITION. NO SIGNS OF DISTRESS AT THIS TIME
--- NOTE | 2018-06-18 14:00 | NUR ---
PATIENT OFF UNIT TO GO TO RADIOLOGY FOR CT SCAN, PATIENT HOOKED UP TO TRANSPORT MONITOR AND BIPAP, VS STABLE AT THIS TIME, ACCOMPANIED BY 2 RTS. NO SIGNS OF DISTRESS NOTED. WILL CONTINUE TO MONITOR
--- NOTE | 2018-06-18 14:00 | NUR ---
PT TO CT SCAN OF CHEST ON BIPAP WITH SAME SETTINGS, THEN BACK TO ICU I STILL ON BIPAP PT SLEEPING DURING LEGAL RESEARCH ANALYST EIRENE AT BEDSIDE WITH PT
--- NOTE | 2018-06-18 14:21 | NUR ---
PATIENT BACK IN UNIT, NO SIGNS DISTRESS DURING PROCEDURE, PATIENT TOLERATED WELL. PATIENT BACK ON NAMED ACCOUNT EXECUTIVE, BIPAP IN PLACE, VITAL SIGNS STABLE, NO SIGNS OF DISTRESS NOTED. WILL CONTINUE TO MONITOR
--- NOTE | 2018-06-18 16:15 | NUR ---
DR. SETHI IN TO SEE AND EXAMINE PATIENT, UPDATED ON PATIENT'S CONDITION. DISCUSSED PLAN OF CARE FOR PATIENT WITH DR. WILLIAMSON, WILL FOLLOW UP ON ANY ORDERS.
--- NOTE | 2018-06-18 16:35 | NUR ---
RECEIVED CALL FROM DR. HAQUE, UPDATED ON PATIENT'S CONDITION. RECEIVED ORDER FOR LASIX 20MG IVP NOW AND FOR TOMORROW MORNING
[2018-06-18] MEDS ORDERED: FUROSEMIDE 20 MG/2 ML VIAL IVP ONE ×2 (16:45→18:23)
[2018-06-18] MEDS ORDERED: ALBUTEROL SULFATE/IPRATROPIU 3 ML SOL IH PRN (16:55)
[2018-06-18] MEDS: MONTELUKAST SODIUM 10 MG TAB PO SCH (17:00)
[2018-06-18] MEDS: methylPREDNISolone SS 125 MG/2 ML VIAL IVP SCH (17:11)
--- NOTE | 2018-06-18 17:54 | NUR ---
US TECH AT BEDSIDE, NO SIGNS OF DISTRESS AT THIS TIME. WILL CONTINUE TO MONITOR
[2018-06-18] MEDS ORDERED: ALBUTEROL SULFATE/IPRATROPIU 3 ML SOL IH SCH (19:00)
--- NOTE | 2018-06-18 19:15 | NUR ---
RECEIVED BEDSIDE REPORT FROM MORNING SHIFT RN, DUNCAN, FOR CONTINUITY OF CARE. PT IS ASLEEP AT THIS TIME ON BIPAP.AFEBRILE (97.3), VSS, LUNG SOUNDS ARE CLEAR/DIMINISHED IN UPPER BILATERAL BASES, DIMINISHED ON LOWER BILATERAL BASES. SR ON OUTSIDE CONTRACTOR SALES. ALEJO IN INTACT, PATENT URINE IS CLEAR/YELLOW. BOWEL SOUNDS ACTIVE ON AUSCULATION. SKIN IS NON-INTACT, REDNESS AND FLOWER NOTED ON SITE OF , WOUND DRESSING DRY& INACT ON RIGHT UPPER ARM. NON-PITTING EDEMA ON BILATERAL FEET, PALM OF FEET DRY/ROUGH TO TOUCH.HOB ELEVATED ABOVE 30 DEG. RIGHT IJ TRIPLE LUMEN CENTRAL LINE IN PLACE, INFUSING HEPARIN AT 1100 UNITS/HR AND NS AT 10ML/HR INFUSING.
--- NOTE | 2018-06-18 19:17 | NUR ---
ENDORSED CONTINUITY OF CARE TO GEOFFREY CUT IN STATION OPERATOR RN. PATIENT IS RESTING COMFORTABLY, NO SIGNS OF DISTRESS NOTED.
[2018-06-18] MEDS: BUDESONIDE 0.25 MG/2 ML NEBU INH SCH (19:34)
[2018-06-18] MEDS: ALBUTEROL SULFATE/IPRATROPIU 3 ML SOL IH SCH ×2 (19:34→22:30)
--- NOTE | 2018-06-18 19:35 | NUR ---
SHENA RT, AT BEDSIDE TO SEE PATIENT.
[2018-06-18] MEDS: SERTRALINE 50 MG TAB PO SCH (20:17)
[2018-06-18] MEDS: FAMOTIDINE 20 MG TAB PO SCH (20:17)
[2018-06-18] MEDS: METOPROLOL 50 MG TAB PO SCH (20:17)
[2018-06-18] MEDS: DOCUSATE SODIUM 100 MG GELCAP PO SCH (20:17)
--- NOTE | 2018-06-18 20:32 | NUR ---
CALLED DR. MOYA, CONFIRMED PT IS NPO STATUS EXCEPT MEDS DUE TO POSSIBILITY OF PANCREATITIS. WILL CARRY OUT.
--- NOTE | 2018-06-18 20:40 | NUR ---
KETURAH, CASA AT BEDSIDE.
--- NOTE | 2018-06-18 21:15 | NUR ---
ANASTASIA, RN PLACED PATIENT ON 3L NASAL CANNULA SINCE AND SON AT BEDSIDE. PATIENT AWAKE ALERT AND ORIENTED. HR-88, SAO2-100% RR-20BPM. NO SIGNS OF RESPIRATORY DISTRESS
--- NOTE | 2018-06-18 21:45 | NUR ---
SHENA ZHAO, AT BEDSIDE WITH PATIENT & FAMILY.
--- NOTE | 2018-06-18 21:50 | NUR ---
Emptied lui catheter; 825ml. Urine is clear/yellow.
--- NOTE | 2018-06-18 21:57 | NUR ---
DR. HAQUE AT BEDSIDE TO SEE PATIENT, USED POWDERMAN PHONE: SPOKE WITH LANIE #[phone].
[2018-06-18 22:01] LABS: PROTHROMBIN TIME 9.5 secs (10.8-13.4)
--- NOTE | 2018-06-18 22:35 | NUR ---
RT, SHENA, AT BEDSIDE. PT BACK ON BIPAP RECEIVING BREATHING TREATMENT.
[2018-06-19] VITALS (12 sets, daily range): BP systolic 112–132; BP diastolic 59–85
--- NOTE | 2018-06-19 00:29 | NUR ---
ANIBAL, FROM LAB AT BEDSIDE, RN TO COLLECTING TROPONIN.
[2018-06-19] MEDS: methylPREDNISolone SS 125 MG/2 ML VIAL IVP SCH ×2 (00:53→08:27)
[2018-06-19] MEDS: ALBUTEROL SULFATE/IPRATROPIU 3 ML SOL IH SCH ×6 (02:21→22:54)
--- NOTE | 2018-06-19 02:50 | NUR ---
PATIENT WANTED OFF BIPAP AND PLACED ON NASAL CANNULA 2LPM BY YOEL STAPLES. NO DISTRESS NOTED SAO2-98% RR-18 HR-95BPM
--- NOTE | 2018-06-19 02:51 | NUR ---
PT AWAKE AT BEDSIDE, ON 3L NASAL CANNULA. O2 SAT 99-100%, RR=18.
--- NOTE | 2018-06-19 04:00 | NUR ---
PT IS SLEEPING, YET EASILY AROUSABLE. DENIES PAIN/NAUSEA AT THIS TIME.
[2018-06-19 04:47] LABS: BASOPHILS % (AUTO) 0.2 % (0.0-2.0); HEMATOCRIT 28.1 % (36-48); HEMOGLOBIN 9.1 g/dL (12.0-16.0); LYMPHOCYTES # (AUTO) 1.5 K/uL (2.5-16.5); MEAN CORPUSCULAR HEMOGLOBIN 27 pg (27-31); MEAN CORPUSCULAR HGB CONC 32 g/dL (33-37); MEAN CORPUSCULAR VOLUME 82.6 fL (80-94); MONOCYTES # (AUTO) 0.2 K/uL (0.8-1.0); MONOCYTES % (AUTO) 1.4 % (1.7-9.3); NEUTROPHILS # (AUTO) 12.2 K/uL (1.8-7.7); NEUTROPHILS % (AUTO) 87.4 % (42.2-75.2); PLATELET COUNT (AUTO) 368 K/uL (140-450); RED BLOOD CELL COUNT(AUTO) 3.41 MIL/uL (4.20-5.40); RED CELL DISTRIBUTION WIDTH 15.5 % (11.6-13.7)
[2018-06-19 06:16] LABS: ANION GAP 9.2 (8-16); CARBON DIOXIDE 28.1 mmol/L (21-32); CREATININE 0.7 mg/dL (0.6-1.3); POTASSIUM 4.3 mmol/L (3.5-5.1)
[2018-06-19 06:17] LABS: AMYLASE 49 U/L (25-115); LIPASE 307 U/L (73-393)
[2018-06-19 06:40] LABS: CHOL/HDL RATIO 5.3 (1-4.5); PHOSPHORUS 4.3 mg/dL (2.5-4.9)
--- NOTE | 2018-06-19 06:40 | NUR ---
PT IS AWAKE AND ALERT, ON 3L NASAL CANNULA SATING 98-100%. RT AT BEDSIDE TO PROVIDE BREATHING TREATMENT. BED BATH, ORAL CARE, AND CATHETER CARE PROVIDED AT BEDSIDE. URINE OUTPUT OF 425 Q SHIFT. FRESH GOWN PROVIDED. Addendum: 06/19/18 at 0701 by Neris Rincon RN URINE OUTPUT 500ML Q SHIFT
[2018-06-19] MEDS: BUDESONIDE 0.25 MG/2 ML NEBU INH SCH ×2 (06:41→19:09)
--- NOTE | 2018-06-19 07:15 | NUR ---
PROVIDED BEDSIDE REPORT TO MORNING SHIFT RN, DUNCAN, FOR CONTINUITY OF CARE.
--- NOTE | 2018-06-19 07:20 | NUR ---
RECEIVED BEDSIDE REPORT FOR CONTINUITY OF CARE FROM SOFTWARE QA SYSTEM SPECIALIST RNGEOFFREY. PATIENT IS AAOX4, ABLE TO FOLLOW COMMANDS AND MAKE NEEDS KNOWN. SKIN NOT INTACT, WARM AND DRY, HAS WOUND TO RIGHT UPPER ARM, DRESSING CLEAN AND DRY. PATIENT HAS S/P INCISION POST CESARIAN, NO DRAINAGE NOTED. PATIENT HAS CENTRAL LINE TO RIGHT IJ, ASYMPTOMATIC, INTACT, PATENT, DRESSING CLEAN AND DRY. PATIENT IS ON NASAL CANNULA AT 3LPM, BREATHING UNLABORED AND EVEN, ST ON VENUE COORDINATOR, DENIES ANY PAIN, SOB. PATIENT HAS ALEJO CATHETER IN PLACE TO YELLOW URINE. HOB IS IN SEMI-FOWLERS POSITION, CALL LIGHT WITHIN REACH. ALL SAFETY PRECAUTIONS ASSESSED AND ENFORCED. NO SIGNS OF DISTRESS NOTED AT THIS TIME. WILL CONTINUE TO MONITOR.
[2018-06-19 07:53] LABS: PROTHROMBIN TIME 9.8 secs (10.8-13.4)
[2018-06-19] MEDS: LORATADINE 10 MG TAB PO SCH (08:27)
[2018-06-19] MEDS: FUROSEMIDE 20 MG/2 ML VIAL IVP SCH ×2 (08:27→20:44)
[2018-06-19] MEDS: amLODIPine 5 MG TAB PO SCH (08:28)
[2018-06-19] MEDS: METOPROLOL 50 MG TAB PO SCH ×2 (08:29→20:45)
[2018-06-19] MEDS: ASPIRIN 81 MG TAB.CHEW PO SCH (08:29)
[2018-06-19] MEDS: DOCUSATE SODIUM 100 MG GELCAP PO SCH ×2 (08:29→20:44)
[2018-06-19] MEDS: FAMOTIDINE 20 MG TAB PO SCH ×2 (08:29→20:45)
--- NOTE | 2018-06-19 08:58 | NUR ---
PATIENT IS OFF UNIT FOR CT SCAN, HOOKED UP TO COOK STATION, ON NASAL CANNULA AT 3LPM, DENIES ANY SOB. VITAL SIGNS STABLE, NO SIGNS OF DISTRESS NOTED. ACCOMPANIED BY COMPOSITE BOND TECHNICIAN
[2018-06-19] MEDS ORDERED: FUROSEMIDE 20 MG/2 ML VIAL IVP ONE (09:00)
--- NOTE | 2018-06-19 09:06 | NUR ---
PATIENT HAS BEEN SCREENED AND CATEGORIZED HIGH NUTRITION RISK. PATIENT WILL BE SEEN WITHIN 1-2 DAYS OF ADMISSION. 06/19/[address]
--- NOTE | 2018-06-19 09:15 | NUR ---
PATIENT BACK TO UNIT. PATIENT TOLERATED CT SCAN WELL, NO ACUTE DISTRESS NOTED. PATIENT IS BACK ON GEOSPATIAL IMAGE ANALYST, VITAL SIGNS STABLE.
--- NOTE | 2018-06-19 09:21 | NUR ---
CHILD NUTRITION ASSISTANT, SOPHIA, AT BEDSIDE TO EVALUATE WOUND AND CHANGE DRESSING. PATIENT TOLERATES WELL, STATES THAT THERE IS NO PAIN, BUT IT IS ITCHY. PATIENT WAS EDUCATED ON WOUND CARE FOR HER RIGHT UPPER ARM, PATIENT VERBALIZES UNDERSTANDING. PATIENT IS ALSO AWARE THAT THE SURGEON WILL CHECK ON THE ABDOMINAL INCISION TO REMOVE FLOWER.
[2018-06-19] MEDS: NACL 0.9% 250 ML IV SCH (09:27)
--- NOTE | 2018-06-19 10:08 | NUR ---
REASON FOR EVALUATION: SURGICAL WOUND AND RIGHT UPPER ARM WOUND SKIN ASSESSMENT DONE WITH THIS 32 Y/O FEMALE ADMITTED FROM HOME TO [facility] WITH INITIAL DX OF RIGHT ARM PAIN. PT. VISITED ED ON 06/16/2018 AND DISCHARGED HOME. PT. LABS ARE WBC 14.1, H/H 9.1/28.1, GLUCOSE 162 AND ALBUMIN 2.2. WOUND CULTURE PENDING. PT IS ALERT, SKIN IS WARM WITH GOOD HYDRATION, BLE NO HAIR GROWTH, NO EDEMA. PLAN OF CARE DISCUSS WITH PRIMARY RN AND PT. INTEGUMENTARY: -SURGICAL WOUND S/P DEBRIDEMENT RIGHT UPPER ARM EXTRAVASATION SITE, [id number] WOUND BED IS MOIST, WOUND BED COLOR MIXED OF YELLOW AND BROWN TISSUE, 5% RED COLOR MUSCLE OBSERVED, NO DRAINAGE, NO ODOR, WITH IRREGULAR WOUND SHAPE. MEGHA-WOUND SKIN INTACT. PAIN 0/10 -LOWER ABDOMEN S/P SURGICAL WOUND, WOUND SITE CLEAN AND DRY WITH FLOWER IN PLACE, NO S/S OF WOUND DEHISCENCE RECOMMENDATIONS: -SURGEON TO CONSULT -MAY REMOVE FLOWER TO LOWER ABDOMEN. DR. ROMO NOTIFIED -CLEANSE RIGHT UPPER ARM SURGICAL WOUND WITH NS. PAT DRY, APPLY THERAHONEY DRESSING SHEET AND COVER WITH DRY DRESSING AND KERLIX ROLLS, SECURE WITH TAPE, CHANGE EVERY OTHER DAY AND PRN IF SOILING -PLEASE FOLLOW UP SURGEON 7-10 DAYS AFTER DISCHARGED. -Dr. ROMO NOTIFY AND WILL ARRANGE DISCHARGE PLANNING FOR WOUND CARE RECOMMENDATIONS DISCUSSED WITH PRIMARY RN WILL FOLLOW UP PATIENT Q 7 -10 DAYS AND PRN. PLEASE CONTACT WOUND CARE NURSE FOR ANY CONCERNS AND CHANGES IN WOUND CONDITION
--- NOTE | 2018-06-19 10:16 | NUR ---
ADMIN PROG COORD AT BEDSIDE FOR ECHOCARDIOGRAM, PATIENT TOLERATING WELL, NO SIGNS OF ACUTE DISTRESS NOTED.
[2018-06-19] MEDS: hePARIN / DEXT 5% PREMIX 250 ML IV SCH (12:06)
--- NOTE | 2018-06-19 12:33 | NUR ---
RD AT BEDSIDE, NO SIGNS OF DISTRESS NOTED.
--- NOTE | 2018-06-19 13:08 | NUR ---
DR. NASH IN TO SEE AND EXAMINE PATIENT, UPDATED ON PATIENT'S CONDITION. WILL FOLLOW UP ON ANY ORDERS.
[2018-06-19] MEDS: HYDROcodone/APAP 7.5/325 MG 1 TAB PO PRN ×2 (13:12→20:44)
--- NOTE | 2018-06-19 13:17 | NUR ---
ADMINISTERED PRN NORCO PO FOR 6/10 PAIN TO HER RIGHT UPPER ARM. PATIENT TOLERATED WELL, WILL REASSESS PAIN IN 45 MINS.
--- NOTE | 2018-06-19 13:38 | NUR ---
PATIENT DENIES ANY PAIN OR SOB AT THIS TIME, PATIENT IS SPEAKING WITH AT BEDSIDE, NO SIGNS OF DISTRESS NOTED. WILL CONTINUE TO MONITOR
--- NOTE | 2018-06-19 15:00 | NUR ---
PT REFUSED BREATHING TX NO SIGNS OF DISTRESS NOTED FAMILY AT BEDSIDE PT IS HAVING PROCEDURED DONE
--- NOTE | 2018-06-19 15:48 | NUR ---
06/19/18 RD INITIAL ASSESSMENT COMPLETED PLEASE REFER TO NUTRITION ASSESSMENT UNDER CARE ACTIVITY FOR ESTIMATED NUTRITIONAL NEEDS. 1. CONTINUE CARDIAC DIET TOLERATED 2. RECOMMENDED IRIS BID 3. RD TO FOLLOW-UP 5-7 DAYS, LOW RISK BERENICE TEE RD
[2018-06-19] MEDS: MONTELUKAST SODIUM 10 MG TAB PO SCH (16:30)
--- NOTE | 2018-06-19 16:39 | NUR ---
DEFLATED BALLOON OF ALEJO BY REMOVING 9MLS, REMOVED ALEJO CATHETER, PATIENT TOLERATED WELL.
[2018-06-19] MEDS ORDERED: methylPREDNISolone SS 40 MG/ML VIAL IVP SCH (17:00)
[2018-06-19] MEDS ORDERED: THERAHONEY WOUND DRESSING TP SCH (17:05)
--- NOTE | 2018-06-19 17:45 | NUR ---
TRANSFERRED PATIENT TO [facility], PATIENT WAS HOOKED TO TRANSPORT MONITOR, VITAL SIGNS STABLE, NASAL CANNULA AT 3LPM, NO SIGNS OF SOB NOTED. ENDORSED CONTINUITY OF CARE TO [facility] RN. NO SIGNS OF DISTRESS AT THIS TIME.
--- NOTE | 2018-06-19 17:45 | NUR ---
PT TRANSFERRED FROM ICU. PT IS AAOX4, AMBULATORY, PT HAS IJ X 3 LUMEN, PT HAS RIGHT UPPER ARM WOUND S/P I & D, STITCHES, PT IS ON O2 3L NC, NO S/S OF RESPIRATORY DISTRESS OR DISCOMFORT NOTED, DISCUSSED PLAN OF CARE WITH PT, PT VERBALIZED UNDERSTANDING, ORIENTED PT TO ROOM, CALL LIGHT IS WITHIN REACH, WILL CONTINUE TO MONITOR.
--- NOTE | 2018-06-19 19:19 | NUR ---
ENDORSED PT TO RESTAURANT SUPERVISOR NURSE FOR CONTINUITY OF CARE. PT STABLE AT THIS TIME.
[2018-06-19] MEDS ORDERED: LOVENOX 1MG/KG Q12H SUBQ SCH (19:20)
--- NOTE | 2018-06-19 19:20 | NUR ---
RECEIVED FROM AM RN SITTING IN CHAIR WITH BREATHING TREATMENT ON GOING. ABLE TO VERBALIZE NEEDS WELL. NO SOB COMPLAINTS AT THIS TIME. PT. ABLE TO VERBALIZE NEEDS WELL. ROM X 4. CLEAR SPEECH. SPEAKS LATVIAN AND UNDERSTANDS A LITTLE BIT OF [place]. TRANSFER FROM ICU WITH DX. OF PULMONARY EMBOLISM RT COMPLAINT OF SOB. CT SCAN ABDOMEN SHOWS NO ANEURYSM , ALL IMAGING TESTS DONE SHOWS NO EVIDENCE OF THROMBUS. TELEMETRY MONITORING.
--- NOTE | 2018-06-19 20:16 | NUR ---
MD ALFRED IN HERE TO CHECK ON PT'S . RIGHT WOUND TO AC . DRESSING CHANGED . STILL WITH SLIGHT SANGUINOUS DISCHARGE FROM SITE NOTED. PT. SPOUSE AND TODDLER SON IN HERE VISITING . ADVISED FATHER TO KEEP AN EYE ON SON AND NOT TO LET HIM GO ON TOP OF BED RT POSSIBLE INJURY OR FALL. "OK" PER SPOUSE AND PT. CARE PLANS FOR THE NIGHT DISCUSSED WITH PT. AND CALL LIGHT WITH IN REACH AT ALL TIMES. PT. USES CALL LIGHT FOR HELP AT ALL TIMES. A/O X 4. ROM X 4. PT. ABLE TO BEND RIGHT HAND FROM ELBOW WELL REQUESTED BY MD. ALFRED.
[2018-06-19] MEDS: SERTRALINE 50 MG TAB PO SCH (20:45)
[2018-06-19] MEDS: SODIUM CHLORIDE FLUSH 10 ML SYR IVF SCH (20:48)
[2018-06-19] MEDS ORDERED: ENOXAPARIN 80 MG/0.8 ML SYR SUBQ SCH (22:00)
--- NOTE | 2018-06-19 22:25 | NUR ---
PT. FAMILY MEMBER LEFT FOR HOME. SEEN PT. WALK INSIDE ROOM WELL WITH OUT ANY ASSIST. ROM X 4. CLEAR SPEECH. CALL LIGHT WITH IN REACH.
--- NOTE | 2018-06-19 23:01 | NUR ---
PATIENT'S O2 SATURATION 97% ON RA. LEFT CANULA ON 1LPM AND WITHIN REACH BUT OFF PATIENT. WILL CONTINUE TO MONITOR.
--- NOTE | 2018-06-19 23:03 | NUR ---
PT. STILL SLEEPING BUT WOKE UP EASILY FOR BREATHING TREATMENT AND LOVENOX SQ ADMINISTRATION. TOLERATED WELL. ABLE TO VERBALIZE NEEDS WELL IN WELSH. PT. ENCOURAGED TO CALL FOR ANY HELP SHE MAY NEED. BED ALARM ON.
[2018-06-20] MEDS: ALBUTEROL SULFATE/IPRATROPIU 3 ML SOL IH SCH ×5 (03:04→19:18)
--- NOTE | 2018-06-20 03:15 | NUR ---
PATIENT REFUSED BIPAP TO MASK ON SUPPLEMENTAL OXYGEN AT 2 LPM VIA NC NO EVIDENCE OF PULMONARY DISTRESS NOTED AT THIS TIME
[2018-06-20] MEDS: SODIUM CHLORIDE FLUSH 10 ML SYR IVF SCH ×2 (04:32→12:11)
[2018-06-20 05:12] VITALS: BP 119/72
--- NOTE | 2018-06-20 05:49 | NUR ---
SLEPT WELL THIS SHIFT. NO COMPLAINTS DONE AT THIS TIME. CALL LIGHT WITH IN REACH AT ALL TIMES. NO SOB. ROOM AIR SINCE LAST NIGHT. KEEPS TAKING OUT NASAL CANNULA. 02 SAT WITH IN NORMAL LIMITS.
--- NOTE | 2018-06-20 07:27 | NUR ---
AWAKE AND ALERT. ENDORSED TO THE NEXT RN FOR CONTINUITY OF CARE. NO COMPLAINTS DONE.
--- NOTE | 2018-06-20 07:28 | NUR ---
RECEIVED REPORT FROM THE CASE RESOLUTION SPECIALIST NURSE AT BEDSIDE FOR CONTINUITY OF CARE. PT IS AWAKE AND ORIENTED. INTRODUCED MYSELF AND UPDATED THE BOARD. NC O2 3L IN PLACE. R IJ IN PLACE. R UA DRESSING IN PLACE. DRY AND INTACT. ABD FLOWER IN PLACE. NO SIGNS OF INFECTION. DRY AND INTACT. V/S WITHIN NORMAL RANGE. DENIES PAIN AT THIS TIME. NO SIGNS OF DISTRESS. WILL CONTINUE TO MONITOR PT.
[2018-06-20] MEDS: BUDESONIDE 0.25 MG/2 ML NEBU INH SCH ×2 (07:33→19:18)
--- NOTE | 2018-06-20 07:37 | NUR ---
RCV'D PT ON 2 L NC SITH SPO2 OF 97% CLEAR BREATH SOUNDS BILATERALLY. NO SOB OR DISTRESS NOTED. BIPAP IS STANDBY AT BEDSIDE. HHN TX OF DUONEB AND PULMICORT GIVEN WITH NO ADVERSE REACTION. PT IS ASLEEP COMFORTABLY. WILL CONTINUE TO MONITOR.
[2018-06-20 08:00] VITALS: BP 120/75
[2018-06-20 08:59] LABS: BASOPHILS % (AUTO) 0.1 % (0.0-2.0); EOSINOPHILS % (AUTO) 0.1 % (0.0-4.0); HEMATOCRIT 24.5 % (36-48); HEMOGLOBIN 7.9 g/dL (12.0-16.0); LYMPHOCYTES # (AUTO) 3.1 K/uL (2.5-16.5); MEAN CORPUSCULAR HEMOGLOBIN 27 pg (27-31); MEAN CORPUSCULAR HGB CONC 32 g/dL (33-37); MEAN CORPUSCULAR VOLUME 83.4 fL (80-94); MONOCYTES # (AUTO) 0.7 K/uL (0.8-1.0); MONOCYTES % (AUTO) 4.3 % (1.7-9.3); NEUTROPHILS # (AUTO) 12.3 K/uL (1.8-7.7); NEUTROPHILS % (AUTO) 76.5 % (42.2-75.2); PLATELET COUNT (AUTO) 363 K/uL (140-450); RED BLOOD CELL COUNT(AUTO) 2.94 MIL/uL (4.20-5.40); RED CELL DISTRIBUTION WIDTH 15.7 % (11.6-13.7); WHITE BLOOD COUNT (AUTO) 16.1 K/uL (4.8-10.8)
[2018-06-20] MEDS ORDERED: ENOXAPARIN 80 MG/0.8 ML SYR SUBQ SCH (09:00)
[2018-06-20] MEDS ORDERED: predniSONE 20 MG TAB PO SCH (09:00)
[2018-06-20 09:19] LABS: CREATININE 0.7 mg/dL (0.6-1.3)
[2018-06-20] MEDS: LORATADINE 10 MG TAB PO SCH (09:23)
[2018-06-20] MEDS: DOCUSATE SODIUM 100 MG GELCAP PO SCH (09:23)
[2018-06-20] MEDS: amLODIPine 5 MG TAB PO SCH (09:23)
[2018-06-20] MEDS: METOPROLOL 50 MG TAB PO SCH (09:23)
[2018-06-20] MEDS: ASPIRIN 81 MG TAB.CHEW PO SCH (09:23)
[2018-06-20] MEDS: FAMOTIDINE 20 MG TAB PO SCH (09:23)
[2018-06-20] MEDS: FUROSEMIDE 20 MG/2 ML VIAL IVP SCH (09:24)
--- NOTE | 2018-06-20 09:31 | NUR ---
ADMINISTERED MORNING MEDS. PT TOLERATED WELL. PER PT, VERY SLEEPY. WENT RIGHT BACK TO SLEEP. WILL CONTINUE TO MONITOR PT.
[2018-06-20 09:32] LABS: MAGNESIUM 1.8 mg/dL (1.8-2.4); PHOSPHORUS 3.2 mg/dL (2.5-4.9)
[2018-06-20 09:43] LABS: ANION GAP 8.4 (8-16); CARBON DIOXIDE 28.2 mmol/L (21-32); POTASSIUM 3.6 mmol/L (3.5-5.1)
--- NOTE | 2018-06-20 11:30 | NUR ---
PT VISITING WITH FRIENDS. NO SIGNS OF RESPIRATORY DISTRESS. NO COMPLAINTS. WILL CONTINUE TO MONITOR PT.
[2018-06-20 12:00] VITALS: BP 118/78
--- NOTE | 2018-06-20 12:25 | NUR ---
DR NASH HERE TO ASSESS HER LUNGS. PT IS BREATHING BETTER. ONLY ON 1L, SATURATING AT 99%.
[2018-06-20] MEDS ORDERED: METR250T2 PO (12:31)
[2018-06-20] MEDS ORDERED: METH4TAB1 PO (12:42)
--- NOTE | 2018-06-20 12:53 | NUR ---
Finish Mender Note: Late entry for 06/19/18: I met with patient at bedside. Patient was recently admitted and discharged from [facility]. patient speaks Sierra Leonean, does not speak Irish. She stated she does not have any questions or concerns at this time. Patient does not have a primary care physician at this time and states she does not have funds to pay for medical appointments co-pays. On previous hospital admission I referred patient to [facility] , [facility] is a program designed to follow individual/patient minimum of 30 days post-hospitalization with home visits and phone support as needed. A Licensed Nurse or Artificial Breeding Technician will customize a home visit plan of patient needs and community based resources are provided regardless of insurance coverage or ability to pay. Per Tari Mckeon from [facility], one of their Social Workers will help patient find a low cost or free medical clinic. Their Artificial Breeding Technician will also assist patient with locating a low cost or free counseling center. Tari stated they will follow up with patient at home, she is aware patient will be returning home today. Patients [address] address is [address] [place] [address]. [address] [address].
--- NOTE | 2018-06-20 14:11 | NUR ---
PT REFUSED HHN TX BECAUSE SHE IS TALKING ON PHONE. AT BEDSIDE. NO SOB OR DISTRESS NOTED.
[2018-06-20 16:00] VITALS: BP 126/82
[2018-06-20] MEDS: HYDROcodone/APAP 7.5/325 MG 1 TAB PO PRN (17:29)
[2018-06-20] MEDS: MONTELUKAST SODIUM 10 MG TAB PO SCH (17:29)
--- NOTE | 2018-06-20 17:30 | NUR ---
ADMINISTERED SCHEDULED MED AND A NORCO FOR PAIN. REMOVED OLD DRESSING ON R UA AND TOOK PICTURES. REDRESSED WITH THERA HONEY SHEETS AND GAUZE AND WRAPPED WITH GUEVARA WRAP. PT TOLERATED WELL.
--- NOTE | 2018-06-20 19:15 | NUR ---
ENDORSED D/C TO THE CLINICAL MENTAL HEALTH COUNSELOR NURSE AT BEDSIDE FOR CONTINUITY OF CARE. PT IS IN STABLE CONDITION.
--- NOTE | 2018-06-20 19:28 | NUR ---
ENDORSED PT TO THE DIRECTOR OF QUALITY NURSE AT BEDSIDE FOR CONTINUITY OF CARE. PT IS IN STABLE CONDITION.
--- NOTE | 2018-06-20 19:30 | NUR ---
PT. PREPARING TO BE DISCHARGED. IN HERE TO SHIRT IRONER PT. AWAKE AND ALERT. GOOD AFFECT. SMILING. PT. STILL EATING DINNER. ALL DISCHARGE PAPER WORKS PRINTED AND SIGNED.
--- NOTE | 2018-06-20 21:04 | NUR ---
PT. WHEELED TO THE FRONT BY REGIONAL ACCOUNT MANAGER AND ACCOMPANIED BY SPOUSE. AWAKE AND ALERT. GOOD AFFECT. SMILING AND HAPPY TO GO HOME. CENTRAL LINE TO RIJ DISCONTINUED BY CHARGE NURSE AMANDA WITH DARK BLUE TIP INTACT. COVERED WITH OPSITE DRESSING. NO BLEEDING FROM SITE. ALL BELONGINGS ACCOUNTED FOR AND SIGNED. RESIDENT MD MOSS TALKED WITH PT. PRIOR DISCHARGE AND REMINDED HER OF APPOINTMENTS AND ANSWERED ALL HER QUESTIONS. PT. SATISFIED WITH ANSWERS FROM RESIDENT . NO COMPLAINTS DONE . NO PAIN COMPLAINTS. DISCHARGE PAPER WORKS SIGNED AND EXPLAINED . DISCHARGE EDUCATION EXPLAINED WELL BY RESIDENT AND AM RN. NAME BAND TAKEN OUT .
[2018-06-21] MEDS ORDERED: THERAHONEY WOUND DRESSING TP SCH ×2 (09:00)
== END 2018-06-20 21:00 | disposition home or self-care (01) | DRG 206 ==
LOC: MED 07:55 → MIC 09:50 → MTU 06-19 17:45
PROVIDERS: ADMIT Family Medicine; ATTEND Family Medicine
PROC: 02HV33Z Insertion of Infusion Device into Superior Vena Cava, Percutaneous Approach (ICD-10-PCS; principal; 2018-06-18)
PROC: B548ZZA Ultrasonography of Superior Vena Cava, Guidance (ICD-10-PCS; 2018-06-18)
PROC: 5A09357 Assistance with Respiratory Ventilation, Less than 24 Consecutive Hours, Continuous Positive Airway Pressure (ICD-10-PCS; 2018-06-18)
DX: T80.818A Extravasation of other vesicant agent, initial encounter (principal); J96.90 Respiratory failure, unspecified, unspecified whether with hypoxia or hypercapnia; A41.9 Sepsis, unspecified organism; E43 Unspecified severe protein-calorie malnutrition; I50.43 Acute on chronic combined systolic (congestive) and diastolic (congestive) heart failure; I96 Gangrene, not elsewhere classified; K85.90 Acute pancreatitis without necrosis or infection, unspecified; Y83.8 Other surgical procedures as the cause of abnormal reaction of the patient, or of later complication, without mention of misadventure at the time of the procedure; E87.8 Other disorders of electrolyte and fluid balance, not elsewhere classified; J45.901 Unspecified asthma with (acute) exacerbation; I11.0 Hypertensive heart disease with heart failure; E83.41 Hypermagnesemia; E66.01 Morbid (severe) obesity due to excess calories; S51.001A Unspecified open wound of right elbow, initial encounter; X58.XXXA Exposure to other specified factors, initial encounter; K52.9 Noninfective gastroenteritis and colitis, unspecified; F17.210 Nicotine dependence, cigarettes, uncomplicated; F15.10 Other stimulant abuse, uncomplicated; E11.52 Type 2 diabetes mellitus with diabetic peripheral angiopathy with gangrene; D64.9 Anemia, unspecified; F32.9 Major depressive disorder, single episode, unspecified; R79.89 Other specified abnormal findings of blood chemistry; I89.0 Lymphedema, not elsewhere classified; E78.2 Mixed hyperlipidemia; J45.909 Unspecified asthma, uncomplicated; Z79.82 Long term (current) use of aspirin; Z79.899 Other long term (current) drug therapy; Z68.32 Body mass index [BMI] 32.0-32.9, adult; Z91.14 Patient's other noncompliance with medication regimen; Y92.89 Other specified places as the place of occurrence of the external cause; Y93.89 Activity, other specified
CPT/HCPCS: 36415; 36556; 36600; 71045; 71275; 76700; 80048; 80053; 80305; 81003; 82150; 82550; 82803; 83036; 83605; 83615; 83690; 83735; 83880; 84100; 84439; 84443; 84484; 85025; 85305; 85379; 85610; 85730; 86886; 86900; 86901; 87040; 87070; 87081; 87086; 87186; 93005; 93308; 93971; 94640; 94660; 96374; 96375; 99291; J1642; J1644; J1650; J1940; J2060; J2920; J2930; J3475; J3490; J7512; J7620; J7626; Q0092; Q9967

== ENCOUNTER 2018-06-22 08:12 | Inpatient (IN) | payer MEDICAID ==
[~2018-06-22] VITALS: Ht 160 cm; Wt 81.6 kg
[~2018-06-22 08:12] MED LIST changes: -ACET-2863 PO; +ALBU-118 IH; -AMOX-999 PO; +METH4TAB1 PO; +METR250T2 PO
[2018-06-22 08:16] VITALS: BP 116/79
--- NOTE | 2018-06-22 08:16 | NUR ---
PT AMBULATES TO BED 6
--- NOTE | 2018-06-22 08:25 | NUR ---
PATIENT PRESENTS TO ED WITH THE CHIEF C/O CONSTANT CHEST PAIN FOR 2 WEEKS. PT STATED SHE WAS CODED HERE 2 WEEKS AGO, WAS BABY . DENIES V/D. BUT STATED NAUSEA AT THIS TIME. SKIN IS PINK/WARM/DRY; AAOX4 WITH EVEN AND STEADY GAIT; LUNGS CLEAR BL; HR EVEN AND REGULAR; PT DENIES ANY FEVER, OR COUGH AT THIS TIME. HAS LABORED BREATHING. RR 25 SPO2 95% IN ROOM AIR.AFEBRILE. PATIENT STATES HEADACHE AND CHEST PAIN OF 7/10 AT THIS TIME; VSS; PATIENT POSITIONED FOR COMFORT; HOB ELEVATED; BEDRAILS UP X2; BED DOWN. ER MD MADE AWARE OF PT STATUS.
--- NOTE | 2018-06-22 08:39 | NUR ---
DR MICHELE EVALUATING AT BEDSIDE
--- NOTE | 2018-06-22 08:43 | NUR ---
ABG COMPLETED NO EVIDENCE OF TRAUMA AND/OR ADVERSE REACTIONS NOTED
[2018-06-22] MEDS ORDERED: KETOROLAC 30 MG/ML VIAL IVP ONE (08:45)
--- NOTE | 2018-06-22 08:53 | NUR ---
DR MARLA MICHELE REVIEWED ABG SAMPLE REPORT NEW ORDER: SUPPLEMENTAL OXYGEN AT 2 LPM VIA NC DIANN/RN NOTIFIED
--- NOTE | 2018-06-22 09:00 | NUR ---
CHIEF SAFETY OFFICER AT BEDSIDE FOR BLOOD SAMPLE.
--- NOTE | 2018-06-22 09:00 | NUR ---
PT PLACED ON O2 AT 2 LTR/MIN.
--- NOTE | 2018-06-22 09:03 | NUR ---
XRAY AT BEDSIDE
--- NOTE | 2018-06-22 09:12 | NUR ---
PT STATED SHE IS NOT READY TO VOID TO COLLECT URINE. DOESNOT WANT STRAIGHT CATH FOR SAMPLE COLLECTION. WILL FOLLOW UP.
--- NOTE | 2018-06-22 09:14 | NUR ---
CHEST X -RAY DONE.
[2018-06-22 09:15] LABS: HEMATOCRIT 27.7 % (36-48); RED BLOOD CELL COUNT(AUTO) 3.32 MIL/uL (4.20-5.40); WHITE BLOOD COUNT (AUTO) 10.3 K/uL (4.8-10.8)
--- NOTE | 2018-06-22 09:15 | NUR ---
PT TAKEN TO CT FOR CT-CHEST ANGIO VIA GURNEY.
[2018-06-22 09:16] LABS: BASOPHILS % (AUTO) 0.8 % (0.0-2.0); EOSINOPHILS # (AUTO) 0.2 K/uL (0-0.4); EOSINOPHILS % (AUTO) 1.8 % (0.0-4.0); LYMPHOCYTES # (AUTO) 2.9 K/uL (2.5-16.5); LYMPHOCYTES % (AUTO) 27.7 % (20.5-51.1); MEAN CORPUSCULAR HEMOGLOBIN 27 pg (27-31); MEAN CORPUSCULAR HGB CONC 32 g/dL (33-37); MEAN CORPUSCULAR VOLUME 83.2 fL (80-94); MONOCYTES # (AUTO) 0.5 K/uL (0.8-1.0); MONOCYTES % (AUTO) 5.1 % (1.7-9.3); NEUTROPHILS # (AUTO) 6.7 K/uL (1.8-7.7); NEUTROPHILS % (AUTO) 64.6 % (42.2-75.2); PLATELET COUNT (AUTO) 366 K/uL (140-450); RED CELL DISTRIBUTION WIDTH 15.7 % (11.6-13.7)
[2018-06-22 09:26] LABS: PROTHROMBIN TIME 9.5 secs (10.8-13.4)
[2018-06-22 09:27] LABS: ANION GAP 6.9 (8-16); CARBON DIOXIDE 28.1 mmol/L (21-32); CREATININE 0.6 mg/dL (0.6-1.3)
[2018-06-22 09:31] LABS: ALBUMIN 2.3 g/dL (3.4-5.0); TOTAL BILIRUBIN 0.2 mg/dL (0.0-1.0)
--- NOTE | 2018-06-22 09:31 | NUR ---
PT BACK FROM CT. PUT ON BEDSIDE MONITOR. DENIES CHEST PAIN, DIFFICULTY BREATHING AT THIS TIME. PT DRANK A CUP OF WATER. LYING ON BED CONMFORTABLY. VS WNL.
[2018-06-22 10:04] LABS: BARBITURATE, URINE NEGATIVE ng/ml (NEG <=200); BENZODIAZEPINE, URINE NEGATIVE ng/mL (NEG <=200); CANNABINOID, URINE NEGATIVE ng/mL (NEG <=50); COCAINE, URINE NEGATIVE ng/mL (NEG <=300); OPIATE, URINE NEGATIVE ng/mL (NEG <=2000); PHENCYCLIDINE SCREEN,URINE NEGATIVE ng/mL (NEG <=25)
[2018-06-22] MEDS ORDERED: VANCOMYCIN 1GM/DEXT 5% PREMIX 200 ML IV ONE (10:20)
[2018-06-22] MEDS ORDERED: VANCOMYCIN PER PHARMACY MC PRN ×2 (10:20→13:45)
[2018-06-22] MEDS ORDERED: HEPARIN PER PHARMACY MC PRN ×2 (10:30→11:00)
[2018-06-22] MEDS ORDERED: hePARIN / DEXT 5% PREMIX 250 ML IV ONE (10:30)
[2018-06-22] MEDS ORDERED: LORazepam 2 MG/ML VIAL IM/IVP PRN (10:50)
[2018-06-22] MEDS ORDERED: DOCUSATE SODIUM 100 MG GELCAP PO PRN (10:50)
[2018-06-22] MEDS ORDERED: HYDROcodone/APAP 5/325 MG 1 TAB TAB PO PRN (10:50)
[2018-06-22] MEDS ORDERED: MORPHINE SULFATE 2 MG/ML SYR IVP PRN (10:50)
[2018-06-22] MEDS ORDERED: ONDANSETRON 4 MG/2 ML VIAL IM/IVP PRN (10:50)
[2018-06-22] MEDS ORDERED: ZOLPIDEM 5 MG TAB PO PRN (10:50)
[2018-06-22] MEDS ORDERED: ACETAMINOPHEN 325 MG TAB PO PRN (10:50)
[2018-06-22] MEDS ORDERED: hePARIN / DEXT 5% PREMIX 250 ML IV SCH ×2 (11:00)
--- NOTE | 2018-06-22 11:16 | NUR ---
spoke with Keshawn, Box Estimator, awaiting vehicle controls engineer nurse to call or text back in order to admit patient
[2018-06-22 11:41] LABS: APPEARANCE,URINE CLEAR (CLEAR); BLOOD, URINE 3+ (NEGATIVE); COLOR,URINE YELLOW (YELLOW); PH,URINE 7.5 (5.0-9.0); UGLUCOSE NEGATIVE (NEGATIVE)
[2018-06-22 11:42] LABS: BILIRUBIN,URINE NEGATIVE (NEGATIVE); LEUKOCYTE ESTERASE ,URINE TRACE (NEGATIVE); NITRITE, URINE NEGATIVE (NEGATIVE)
[2018-06-22] MEDS ORDERED: AMOX500C25 PO (11:46)
[2018-06-22 11:49] LABS: RBC,URINE 11-20 (MOD) /HPF (0-5)
[2018-06-22 11:50] LABS: CHOL/HDL RATIO 4.5 (1-4.5); MAGNESIUM 1.5 mg/dL (1.8-2.4); PHOSPHORUS 3.3 mg/dL (2.5-4.9)
[2018-06-22 11:51] LABS: FREE T4 (FREE THYROXINE) 1.38 ng/dL (0.76-1.46); THYROID STIMULATING HORMONE 1.69 uIU/mL (0.34-3.74)
[2018-06-22] MEDS: NACL 0.9% 1,000 ML IV SCH (12:01)
--- NOTE | 2018-06-22 12:16 | NUR ---
DR. ROMO AT BEDSIDE EVALUATING PT.
--- NOTE | 2018-06-22 12:26 | NUR ---
CALLED DIETARY AND LEFT MESSAGE FOR TRAY.
--- NOTE | 2018-06-22 12:29 | NUR ---
WOUND PICTURES TAKEN. WOUND CARE PROVIDED. COVERED WITH DRESSING. NO ACTIVE DRAINAGE AT THE SITE. INTACT DRESSING.
--- NOTE | 2018-06-22 12:55 | NUR ---
PT TAKEN TO ICU BY RNS MERLINE
--- NOTE | 2018-06-22 13:08 | NUR ---
ADMITTED PT FROM ER BY ALVERTO. PT AWAKE, ALERT. DANISH SPEAKING. ABLE TO FOLLOW COMMANDS. BEDSIDE MONITOR SHOWS SR 95S. PT ON O2 NC 2L/MIN, NO S/S OF RESPIRATORY DISTRESS NOTED.PT STATED CHEST PAIN RELIVED.IV SITE TO LEFT AC # 20 ON HEPARIN DRIP 1150 UNITS/HR AND 0.9 NS AT 100 MLS/HR.SITE INTACT AND PATENT. PT ABLE TO AMBULATE. PT HAS WOUND TO RIGHT ARM ( SEE WOUND ASSESSMENT), CALL LIGHT IN REACH, ORIENTED PATIENT ENVIRONMENT, POC EXPLAINED TO PT, PT VERBALIZED UNDERSTANDING, HOB ELEVATED 30 DEGREES WITH LOW BED POSITION. WILL CONTINUE TO MONITOR.
--- NOTE | 2018-06-22 13:25 | NUR ---
Patient admitted the care of Chad Gallagher. Transferred to ICU room 1 via gurney on stable condition. made aware. Belongings list completed. Report given to YOEL Urbano. Sent belongings with patient.
--- NOTE | 2018-06-22 13:30 | NUR ---
OFFERED PT LUNCH TRAY.
[2018-06-22] MEDS ORDERED: AMLO5TAB4 PO (13:49)
[2018-06-22] MEDS ORDERED: SERT-146 PO (13:49)
--- NOTE | 2018-06-22 13:50 | NUR ---
MANAGER INVENTORY YELENA DEL RIO MANAGER INVENTORY #[id number] USED TO ASK QUESTIONS REGARDING FLU, PNA VACCINATIONS, PREVIOUS BLOOD TRANSFUSION AND SCIENTOLOGIST.
--- NOTE | 2018-06-22 14:48 | NUR ---
DR. NASH IN TO CHECK PT, UPDATED PT'S CONDITION. PER CHANGE STOP HEPARIN DRIP AFTER GIVING THE FIRST DOSE OF XARELTO, WILL CARRY OUT.
[2018-06-22] MEDS ORDERED: MAG SULF 2000 MG/WATER PREMIX 50 ML IV ONE (14:50)
[2018-06-22] MEDS ORDERED: RIVAROXABAN 15 MG TAB PO SCH (15:00)
[2018-06-22] MEDS: MAGNESIUM SULFATE 1GM in DEXTROSE 5% 100 ML PREMIX IV SCH ×2 (15:13→17:14)
--- NOTE | 2018-06-22 15:13 | NUR ---
STOPPED HEPARIN DRIP, XARELTO GIVEN. PT TOLERATED WELL.MAGNESIUM SULFATE 1 GM IN D5 100 MLS PREMIXED HANGED. CHARGE NURSE MADE AWARE.
[2018-06-22] MEDS ORDERED: SKINTEGRITY HYDROGEL TP PRN (15:45)
[2018-06-22 15:47] LABS: BASOPHILS # (AUTO) 0.1 K/uL (0.00-0.22)
[2018-06-22 16:00] VITALS: BP 119/83
[2018-06-22] MEDS: SKINTEGRITY HYDROGEL TP SCH (16:00)
--- NOTE | 2018-06-22 16:00 | NUR ---
RECEIVED PT FROM ICU NURSE, NUHA,VIA [facility]. PT IS AWAKE AND AMBULATED TO THE BED FROM THE [place], NO SOB NOTED. PT HAS AN IV LINE ON THE LEFT AC G. 20 INTACT. PT HAS AN O2 AT 2L VIA NC PLACED. A ABDOMINAL DRESSING WAS NOTED ON THE RT ARM OF THE PT. PT DENIES PAIN AT THIS TIME AND WILL CONTINUE TO MONITOR.
--- NOTE | 2018-06-22 16:00 | NUR ---
REPORT GIVEN TO HELEN. PT VITALS STABLE AT THIS MOMENT. PT AMBULATE TO BED.
--- NOTE | 2018-06-22 17:45 | NUR ---
RT ARM DEEP TISSUE OPEN WOUND WAS CLEANED AND REINFORCED BY AN ADAPTIC DRESSING, HYDROGEL APPLIED AND SECURED BY AN ABDOMINAL DRESSING. DRESSING WAS TIMED, INITIALED AND DATED. PHOTO OF THE WOUND WAS TALKEN AND ATTACHED TO THE CHART.
--- NOTE | 2018-06-22 18:33 | NUR ---
PT IS AWAKE AND ON THE BEDSIDE, ZOSYN IV PB WAS GIVEN AND PT TOLERATED IT. WILL MONITOR PT.
[2018-06-22] MEDS ORDERED: ALBUTEROL SULFATE/IPRATROPIU 3 ML SOL IH SCH (19:00)
--- NOTE | 2018-06-22 19:30 | NUR ---
ENDORSED PT TO SANITATION DIRECTOR NURSE, JEANNE FOR CONTINUITY OF CARE. PT IS STABLE AT THIS TIME.
--- NOTE | 2018-06-22 19:35 | NUR ---
RECEIVED PT FROM HELEN RN PT AAOX4 ON 02 2 LTS VIA NC LABORED BREATHING AND SHALLOW RESP ON TELEMETRY ST RIGHT UPPER ARM DRESSING DRY AND INTACT IV ON LEFT AC INFUSING WELL, INITIAL ASSESSMENT DONE
[2018-06-22 20:00] VITALS: BP 121/79
[2018-06-22] MEDS ORDERED: SERTRALINE HCL 50 MG PO SCH (21:00)
[2018-06-22] MEDS ORDERED: SERTRALINE 50 MG TAB PO SCH (21:00)
[2018-06-22] MEDS ORDERED: METOPROLOL TARTRATE 50 MG PO SCH (21:00)
[2018-06-22] MEDS: VANCOMYCIN 1,250 MG in DEXTROSE 5% 250 ML IV SCH (21:08)
[2018-06-22] MEDS: METOPROLOL 50 MG TAB PO SCH (21:08)
--- NOTE | 2018-06-22 22:00 | NUR ---
PT IS ASSISTED TOT H RESTROOM VOIDING WELL NOT DISTRESS NOTED ON TELEMETRY ST
[2018-06-23] VITALS: BP 139/94
[2018-06-23] MEDS: SKINTEGRITY HYDROGEL TP SCH (01:00)
[2018-06-23] MEDS: ALBUTEROL SULFATE/IPRATROPIU 3 ML SOL IH PRN ×3 (01:09→13:40)
--- NOTE | 2018-06-23 01:55 | NUR ---
AFTER PAIN MEDIC ND BREATHING TX PT SLEEPING WELL NOT DISTRESS NOTED
--- NOTE | 2018-06-23 03:42 | NUR ---
PT VOIDING WELL AMBULATES TOTHE RESTROOM NOT DISTRESS NOTED AT THIS TIME REMAINSTABLE
[2018-06-23 04:00] VITALS: BP 122/83
[2018-06-23] MEDS: NACL 0.9% 1,000 ML IV SCH (05:04)
--- NOTE | 2018-06-23 05:41 | NUR ---
PT SLEEPING SR ON TELMETRY DENIES ANY PAIN IV ON LEFT AC INFUSING WELL.
[2018-06-23 06:54] LABS: BASOPHILS % (AUTO) 0.4 % (0.0-2.0); EOSINOPHILS # (AUTO) 0.2 K/uL (0-0.4); EOSINOPHILS % (AUTO) 2.1 % (0.0-4.0); HEMATOCRIT 27.4 % (36-48); HEMOGLOBIN 8.8 g/dL (12.0-16.0); LYMPHOCYTES # (AUTO) 2.3 K/uL (2.5-16.5); LYMPHOCYTES % (AUTO) 30.3 % (20.5-51.1); MEAN CORPUSCULAR HEMOGLOBIN 27 pg (27-31); MEAN CORPUSCULAR HGB CONC 32 g/dL (33-37); MEAN CORPUSCULAR VOLUME 83.1 fL (80-94); MONOCYTES # (AUTO) 0.3 K/uL (0.8-1.0); MONOCYTES % (AUTO) 3.9 % (1.7-9.3); NEUTROPHILS # (AUTO) 4.8 K/uL (1.8-7.7); NEUTROPHILS % (AUTO) 63.3 % (42.2-75.2); PLATELET COUNT (AUTO) 359 K/uL (140-450); RED CELL DISTRIBUTION WIDTH 15.6 % (11.6-13.7); WHITE BLOOD COUNT (AUTO) 7.6 K/uL (4.8-10.8)
[2018-06-23 07:06] LABS: MAGNESIUM 1.9 mg/dL (1.8-2.4); PHOSPHORUS 3.3 mg/dL (2.5-4.9)
--- NOTE | 2018-06-23 07:06 | NUR ---
PT RESTING ON BED NOT DISTRESS NOTED T WILL BE ENDORSED TO DAY SHIFT NURSE FOR CONTINUITY OF CARE
[2018-06-23 07:11] LABS: CREATININE 0.6 mg/dL (0.6-1.3); POTASSIUM 4.3 mmol/L (3.5-5.1)
--- NOTE | 2018-06-23 07:15 | NUR ---
RECEIVED REPORT FROM THE TELEPHONE SOLICITOR SUPERVISOR NURSE AT BEDSIDE FOR CONTINUITY OF CARE. PT IS AWAKE AND ORIENTED. R/T HERE IS, PT GETTING BREATHING TX. INTRODUCED MYSELF AND UPDATED THE BOARD. PT IS HERE FOR SOB, PE. PT IS AMBULATORY. ABD INCISION W/ FLOWER. R UA DRESSING INTACT. IV ON L AC 20G NS AT 50ML INFUSING. NO SIGNS OF DISTRESS. NO COMPLAINTS AT THIS TIME. WILL CONTINUE TO MONITOR PT.
[2018-06-23 07:32] LABS: ANION GAP 5.9 (8-16); CARBON DIOXIDE 28.4 mmol/L (21-32)
--- NOTE | 2018-06-23 07:45 | NUR ---
V/S WITHIN NORMAL RANGE. NOT WEARING NC, SATURATING AT 99%. NO COMPLAINTS OF PAIN. NO RESP DISTRESS. WILL BE BACK W/ MORNING MEDS.
[2018-06-23] MEDS: METOPROLOL 50 MG TAB PO SCH (08:23)
[2018-06-23] MEDS: VANCOMYCIN 1,250 MG in DEXTROSE 5% 250 ML IV SCH (08:23)
--- NOTE | 2018-06-23 08:26 | NUR ---
PATIENT HAS BEEN SCREENED AND CATEGORIZED MODERATE NUTRITION RISK. PATIENT WILL BE SEEN WITHIN 3-5 DAYS OF ADMISSION. 06/24/18 06/26/[address]
--- NOTE | 2018-06-23 08:27 | NUR ---
ADMINISTERED MORNING MEDS. PT TOLERATED WELL. NO SIGNS OF DISTRESS. BREAKFAST ALL DONE. ATE 100%. NO SIGNS OF RESP DISTRESS. PER PT " EVERYTHING OK". WILL CONTINUE TO MONITOR PT.
[2018-06-23] MEDS ORDERED: amLODIPine 5 MG TAB PO SCH (09:00)
[2018-06-23] MEDS ORDERED: RIVAROXABAN 15 MG TAB PO SCH (09:00)
--- NOTE | 2018-06-23 09:29 | NUR ---
DR NASH IS HERE TO ASSESS PT. PT GOOD TO GO HOME WITH RX OF XARELTO. WILL NEED TO F/U WITH DR NASH IN THE OFFICE, WILL REPEAT CT IN 3 MO TO MAKE SURE PE IS GONE. WILL AWAIT D/C INSTRUCTIONS.
--- NOTE | 2018-06-23 09:50 | NUR ---
REMOVED TOTAL OF 17 FLOWER. SOME WERE ALREADY GONE. MILD ORDER FROM NOT SHOWERING. CLEANED AREA W/ BETADINE AND LEFT PRODUCTION HELPER. EDUCATED PT ABOUT HYGIENE AND IMPORTANCE OF KEEPING IT CLEAN AND DRY. PT TOLERATED WELL. WILL CONTINUE TO MONITOR PT.
[2018-06-23 10:12] VITALS: BP 122/74
--- NOTE | 2018-06-23 10:46 | NUR ---
WOUND CARE EVALUATION NOTE: PT. IS AAX4, RE-ADMITTED TO [facility] FOR DX OF PE. PT. REQUEST TO SEE SOCIAL SERVICE, ARTS ADMINISTRATOR OR MANAGER MADE AWARE. SKIN ASSESSMENT DONE WITH NO NEW SKIN BREAKS NOTICE SINCE LAST DISCHARGED, RIGHT UPPER ARM WOUND DRESSING CHANGE WITH ASSESSMENT DONE. PER DR. WOOD PT. WILL BE ARRANGED TO [facility] FOR SKIN ALEX TO RIGHT UPPER ARM IN ABOUT 2 WEEKS. INTEGUMENTARY: -SURGICAL WOUND RIGHT UPPER ARM, 90H50C1.2CM WOUND BED IS MOIST, WOUND BED COLOR MIXED OF YELLOW AND BROWN TISSUE, 30% RED GRANULATION TISSUE OBSERVED, NO DRAINAGE, NO ODOR, WITH IRREGULAR WOUND SHAPE. MEGHA-WOUND SKIN INTACT, NO REDNESS. PAIN 0/10 RECOMMENDATIONS: -CLEANSE RIGHT UPPER ARM SURGICAL WOUND WITH NS. PAT DRY, APPLY THERAHONEY DRESSING SHEET AND COVER WITH DRY DRESSING AND KERLIX ROLLS, SECURE WITH TAPE, CHANGE EVERY OTHER DAY AND PRN IF SOILING RECOMMENDATIONS DISCUSSED WITH PRIMARY RN WILL FOLLOW UP PATIENT Q 7 -10 DAYS AND PRN. PLEASE CONTACT WOUND CARE NURSE FOR ANY CONCERNS AND CHANGES IN WOUND CONDITION
[2018-06-23 12:00] VITALS: BP 122/74
--- NOTE | 2018-06-23 12:10 | NUR ---
EATING HER LUNCH. FAMILY AT BEDSIDE. NO COMPLAINTS. WILL CONTINUE TO MONITOR PT.
[2018-06-23] MEDS ORDERED: SULF-59 PO (12:34)
[2018-06-23] MEDS ORDERED: RIVA15TA1 PO (12:34)
[2018-06-23] MEDS ORDERED: INFLUENZA VIRUS VACCINE QUAD 0.5 ML SYR IMVAC SCH (13:10)
[2018-06-23] MEDS ORDERED: ACET-9525 PO (13:57)
--- NOTE | 2018-06-23 15:08 | NUR ---
Wire Spooler Note: I met with patient and patient's Mario at bedside. Patient was recently admitted and discharged from [facility]. patient speaks Turkish, does not speak Montenegrin. On a recent hospital admission I referred patient to [facility] , [facility] is a program designed to follow individual/patient minimum of 30 days post-hospitalization with home visits and phone support as needed. A Licensed Nurse or Life Cycle Assessment Analyst will customize a home visit plan of patient needs and community based resources are provided regardless of insurance coverage or ability to pay. Patient does not have a primary care physician at this time and states she does not have funds to pay for medical appointments co-pays. One of their Social Workers from [facility] will help patient find a low cost or free medical clinic. Their Life Cycle Assessment Analyst will also assist patient with locating a low cost or free counseling center. Patients home address is [address] [place] [address]. I provided patient and Mario with the phone number of [facility]. I emphasized to patient and Mario the importance of patient following up with instructions regarding coming to Emergency Room for wound care. They verbalized understanding. Per patient, she would like to obtain her a copy of her medical records. I provided patient and Mario with instructions on how to obtain a copy of patients medical records from our Medical Records Department.
--- NOTE | 2018-06-23 15:11 | NUR ---
D/C INSTRUCTIONS GIVEN TO PT. WENT OVER EACH OF HER APPTS. EMPHASIZED TO PT AND SPOUSE THAT SHE IS TO COME IN TO OUR ER MWF FOR DRESSING CHANGES WITH DULCE CORTES RN. WROTE IT ALL DOWN IN MONGOLIAN ON A SEPARATE PIECE OF PAPER. SPOUSE AND PT VERBALIZED UNDERSTANDING. ANSWERED ALL QUESTIONS. REMOVED IV, CANNULA INTACT. NO BLEEDING NOTED. REMOVED ID BANDS. REMOVED TELE MONITOR. PT WILL GET DRESSED AND GATHER ALL HER PERSONAL BELONGINGS. KUSUM STEVENSON IS AT BEDSIDE TO ASSIST. WILL WHEELCHAIR PT OUT.
--- NOTE | 2018-06-23 15:24 | NUR ---
OFFERED PT THE FLU VACCINATION. PT REFUSED. WILL GET IT AT PCP OFFICE. DOESN'T FEEL LIKE IT TODAY. RECOMMENDED THAT SHE GET IT DURING THIS FLU SEASON.
--- NOTE | 2018-06-23 15:45 | NUR ---
WHEELCHAIRED PT OUT TO THE CAR. SPOUSE AND SON WITH HER. ALL PERSONAL BELONGINGS WITH HER. PT IN STABLE CONDITION.
== END 2018-06-23 15:45 | disposition home or self-care (01) | DRG 134 ==
LOC: MED 08:12 → MTU 11:57 → MIC 12:42 → MTU 16:00
PROVIDERS: ADMIT General Practice; ATTEND General Practice
DX: I26.99 Other pulmonary embolism without acute cor pulmonale (principal); I50.43 Acute on chronic combined systolic (congestive) and diastolic (congestive) heart failure; E43 Unspecified severe protein-calorie malnutrition; L89.893 Pressure ulcer of other site, stage 3; I11.0 Hypertensive heart disease with heart failure; Z86.74 Personal history of sudden cardiac arrest; N39.0 Urinary tract infection, site not specified; F32.9 Major depressive disorder, single episode, unspecified; F15.10 Other stimulant abuse, uncomplicated; J45.909 Unspecified asthma, uncomplicated; E78.1 Pure hyperglyceridemia; E83.42 Hypomagnesemia; E66.9 Obesity, unspecified; D64.9 Anemia, unspecified; Z79.82 Long term (current) use of aspirin; Z68.31 Body mass index [BMI] 31.0-31.9, adult; Z79.899 Other long term (current) drug therapy
CPT/HCPCS: 36415; 36600; 71045; 71275; 80048; 80053; 80305; 81001; 81025; 82150; 82803; 83036; 83690; 83735; 83880; 84100; 84134; 84439; 84443; 84484; 85025; 85379; 85610; 85730; 87040; 87070; 87081; 87086; 87186; 94640; 96374; 99285; A6248; J0696; J1644; J1885; J3370; J7030; J7060; J7620; Q0092; Q9967

== ENCOUNTER 2018-06-26 10:30 | Emergency (ER) | payer MEDICAID ==
[~2018-06-26] VITALS: Ht 154.9 cm; Wt 74.4 kg
[~2018-06-26 10:30] MED LIST changes: +ACET-9525 PO; -METH4TAB1 PO; -METR250T2 PO; +RIVA15TA1 PO; +SULF-59 PO
[2018-06-26 10:40] VITALS: BP 168/106
[2018-06-26 11:50] VITALS: BP 157/99
== END 2018-06-26 11:50 | disposition home or self-care (01) ==
LOC: MED 10:30
DX: Z48.01 Encounter for change or removal of surgical wound dressing (principal); J45.909 Unspecified asthma, uncomplicated; I10 Essential (primary) hypertension; Z79.899 Other long term (current) drug therapy; Z79.82 Long term (current) use of aspirin
CPT/HCPCS: 99283; Z7610

== ENCOUNTER 2018-06-30 09:51 | Emergency (ER) | payer MEDICAID ==
[~2018-06-30] VITALS: Ht 154.9 cm; Wt 75.7 kg
[2018-06-30 09:58] VITALS: BP 137/79
[2018-06-30] MEDS ORDERED: ALBUTEROL SULFATE/IPRATROPIU 3 ML SOL IH ONE (10:30)
[2018-06-30 10:51] VITALS: BP 135/76
== END 2018-06-30 10:51 | disposition home or self-care (01) ==
LOC: MED 09:51
DX: Z48.01 Encounter for change or removal of surgical wound dressing (principal); J45.909 Unspecified asthma, uncomplicated; E11.9 Type 2 diabetes mellitus without complications; I10 Essential (primary) hypertension; Z79.899 Other long term (current) drug therapy; Z79.82 Long term (current) use of aspirin
CPT/HCPCS: 82948; 94640; J7620; 99283

== ENCOUNTER 2018-07-21 02:04 | Emergency (ER) | payer MEDICAID ==
[~2018-07-21] VITALS: Ht 157.5 cm; Wt 79.4 kg
[2018-07-21 02:06] VITALS: BP 133/90
[2018-07-21 02:12] VITALS: BP 133/90
--- NOTE | 2018-07-21 02:16 | NUR ---
TO BED # 2 AMBULATORY, REPORT GIVEN TO SALINA DIALLO
--- NOTE | 2018-07-21 02:20 | NUR ---
PT PRESENTS TO ED WITH C/O PALPITATIONS X 30MINS. PT DENIES CP, SOB. PT DENIES MEDICAL HX. EKG PERFORMED IN TRIAGE-NSR AT 80 BPM. PT PLACED INTO BED, PENDING MD DOMÍNGUEZ.
--- NOTE | 2018-07-21 02:55 | NUR ---
PATIENT LEFT WITHOUT BEING SEEN BY DR. YBARRA. NO FURTHER CARE PROVIDED FOR PATIENT.
[2018-07-21 03:04] LABS: ANION GAP 9.3 (8-16); CARBON DIOXIDE 30.5 mmol/L (21-32); CREATININE 0.7 mg/dL (0.6-1.3); POTASSIUM 3.8 mmol/L (3.5-5.1)
[2018-07-21 03:10] LABS: ALBUMIN 3.2 g/dL (3.4-5.0); TOTAL BILIRUBIN 0.3 mg/dL (0.0-1.0)
[2018-07-21 03:14] LABS: MAGNESIUM 1.6 mg/dL (1.8-2.4); THYROID STIMULATING HORMONE 4.58 uIU/mL (0.34-3.74)
[2018-07-21 03:17] LABS: BASOPHILS # (AUTO) 0.1 K/uL (0.00-0.22); BASOPHILS % (AUTO) 0.6 % (0.0-2.0); EOSINOPHILS # (AUTO) 0.3 K/uL (0-0.4); EOSINOPHILS % (AUTO) 3.2 % (0.0-4.0); HEMATOCRIT 29.6 % (36-48); HEMOGLOBIN 9.3 g/dL (12.0-16.0); LYMPHOCYTES # (AUTO) 4.3 K/uL (2.5-16.5); MEAN CORPUSCULAR HEMOGLOBIN 24 pg (27-31); MEAN CORPUSCULAR HGB CONC 31 g/dL (33-37); MONOCYTES # (AUTO) 0.6 K/uL (0.8-1.0); MONOCYTES % (AUTO) 5.7 % (1.7-9.3); NEUTROPHILS # (AUTO) 4.7 K/uL (1.8-7.7); NEUTROPHILS % (AUTO) 47.5 % (42.2-75.2); PLATELET COUNT (AUTO) 275 K/uL (140-450); RED BLOOD CELL COUNT(AUTO) 3.85 MIL/uL (4.20-5.40); RED CELL DISTRIBUTION WIDTH 16.3 % (11.6-13.7); WHITE BLOOD COUNT (AUTO) 9.9 K/uL (4.8-10.8)
[2018-07-21 03:28] LABS: PROTHROMBIN TIME 12.1 secs (10.8-13.4)
== END 2018-07-21 02:55 | disposition left against medical advice (07) ==
LOC: MED 02:04
DX: R00.2 Palpitations (principal); Z53.21 Procedure and treatment not carried out due to patient leaving prior to being seen by health care provider
CPT/HCPCS: 36415; 80053; 83735; 83880; 84443; 84484; 85025; 85610; 85730; 93005; 99281; G0482

== ENCOUNTER 2019-09-16 10:49 | Emergency (ER) | payer MEDICAID ==
[~2019-09-16] VITALS: Ht 154.9 cm; Wt 83.9 kg
[~2019-09-16 10:49] MED LIST changes: -AMLO5TAB4 PO; +AMLO5TAB6 PO; +ASPI-1718 PO; -ASPI81CT89 PO
[2019-09-16 10:52] VITALS: BP 115/60
--- NOTE | 2019-09-16 10:59 | NUR ---
WAIT AT LOBBY.
--- NOTE | 2019-09-16 12:30 | NUR ---
CALLED FOR BED PLACEMENT. NO ANSWER IN LOBBY.
--- NOTE | 2019-09-16 12:38 | NUR ---
CALLED FOR BED PLACEMENT NO ANSWER IN LOBBY.
[2019-09-16 13:14] VITALS: BP 115/60
--- NOTE | 2019-09-16 13:14 | NUR ---
PATIENT LEFT WITHOUT BEING SEEN BY DR. CORONADO. NO FURTHER CARE PROVIDED FOR PATIENT.
== END 2019-09-16 12:01 | disposition left against medical advice (07) ==
LOC: MED 10:49
DX: R05 Cough (principal); J02.9 Acute pharyngitis, unspecified; Z53.21 Procedure and treatment not carried out due to patient leaving prior to being seen by health care provider